=== PATIENT | male | born 1970 | race Caucasian/White ===

== ENCOUNTER 2019-12-14 07:19 | Outpatient (REF) | payer BC, SELFPAY ==
--- NOTE | 2019-12-14 07:30 | MR_ITS ---
EXAMINATION: MRI LEFT SHOULDER WITHOUT CONTRAST CLINICAL INFORMATION: Internal derangement. COMPARISON: None. TECHNIQUE: MR images of the shoulder were obtained on a 1.5 Christine high-field strength scanner without intravenous contrast material. FINDINGS: ROTATOR CUFF: There is a small insertional, interstitial tear of the supraspinatus tendon measuring 5 x 6 mm (longitudinal by AP) without appreciable involvement of the articular or bursal surface. There is mild subscapularis tendinosis with undersurface fraying. No muscle atrophy or fatty infiltration. BICEPS: Normal. CORACOACROMIAL ARCH: The undersurface of the acromion is flat with no subacromial spur. The acromioclavicular joint is normal. LABRUM/CAPSULE: There is a linear band of intermediate to increased signal undercutting the posteroinferior labrum between the posteroinferior 7 o'clock position and 8 o'clock position. This is concerning for a small tear. Of note, the glenoid appears mildly dysplastic inferiorly. The joint capsule is thickened and edematous at the axillary pouch GLENOHUMERAL JOINT/MARROW: No fracture or malalignment. Articular cartilage appears well preserved. As noted above, there is blunting of the posterior margin of the glenoid inferiorly which suggests mild dysplasia. No significant joint effusion. IMPRESSION: Glenohumeral joint capsular thickening and edema at the axillary pouch as can be seen with adhesive capsulitis given the appropriate clinical findings. Small 5 x 6 mm insertional, interstitial tear of the supraspinatus tendon. Mild subscapularis tendinosis with undersurface fraying. Minimal glenoid dysplasia with a probable small focal tear of the posterior inferior labrum.
== END 2019-12-14 07:20 | disposition home or self-care (01) ==
LOC: HO.MRI 07:19
PROVIDERS: Visit Provider Orthopaedic Surgery
DX: M24.812 Other specific joint derangements of left shoulder, not elsewhere classified (principal)
CPT/HCPCS: 73221

== ENCOUNTER → 2019-12-26 12:52 | Outpatient (BNVA) | payer BC, SELFPAY | PROVIDERS: PCP Internal Medicine; Referring Provider Internal Medicine; Visit Provider Orthopaedic Surgery | DX: Z76.89 Persons encountering health services in other specified circumstances (principal) ==

== ENCOUNTER 2020-01-11 07:48 | Day surgery (SDC) | payer BC, SELFPAY ==
[2020-01-06 18:13] VITALS: BMI 23.7
--- NOTE | 2020-01-10 10:04 | HO.ANESPROP2 ---
Documented by User: Echo Gillespie 01/10/20 10:13 HPI - Anesthesia Eval Consult details Narrative: 49yo M for Shoulder Arthroscopy [facility] Past Medical History Medical History Adhesive capsulitis of left shoulder Cervical spinal stenosis Cyst of left kidney Erectile dysfunction Hypercholesterolemia Migraine Schatzki's ring Family History Family History Father Heart disease Renal cell cancer Prostate cancer Mother Hypertension Maternal Aunt Breast cancer Maternal Uncle Prostate cancer Social History Social History Alcohol intake: never Smoking Status: Never smoker Use of substances other than those prescribed or required for medical reasons: No Advance Directives: No Advance Directives Information Provided: No Advance Directives on File: No 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 Allergies Allergy/AdvReac Type Severity Reaction Status Date / Time ezetimibe [From Zetia] AdvReac Mild abd pain Verified 01/09/20 11:26 Home Medications Medication Instructions Recorded Confirmed Type rizatriptan 1 tab PO BID PRN MDD 20mg 01/06/20 01/09/20 History topiramate 50 mg PO BID 01/06/20 01/09/20 History sildenafil 100 mg tablet 100 mg PO DAILY PRN 01/09/20 01/09/20 History sumatriptan succinate 100 mg tablet 100 mg PO Q2-4H PRN 01/09/20 01/09/20 History Exam Exam Date and Time: January 10, 2020 1004 Height,Weight and Vital Signs: Height 6 ft 1 in Weight 81.647 kg Assessment and Plan Assessment Anesthesia Assessment: Chart Reviewed Documented by User: Anitha Jimenez 01/11/20 10:06 [facility] Past Medical History Medical History Adhesive capsulitis of left shoulder Cervical spinal stenosis Cyst of left kidney Erectile dysfunction Hypercholesterolemia Migraine Schatzki's ring Family History Family History Father Heart disease Renal cell cancer Prostate cancer Mother Hypertension Maternal Aunt Breast cancer Maternal Uncle Prostate cancer Social History Social History Alcohol intake: never Smoking Status: Never smoker Use of substances other than those prescribed or required for medical reasons: No Advance Directives: No Advance Directives Information Provided: No Advance Directives on File: No 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 Allergies Allergy/AdvReac Type Severity Reaction Status Date / Time ezetimibe [From Zetia] AdvReac Mild abd pain Verified 01/09/20 11:26 Home Medications Medication Instructions Recorded Confirmed Type rizatriptan 1 tab PO BID PRN MDD 20mg 01/06/20 01/09/20 History topiramate 50 mg PO BID 01/06/20 01/09/20 History sildenafil 100 mg tablet 100 mg PO DAILY PRN 01/09/20 01/09/20 History sumatriptan succinate 100 mg tablet 100 mg PO Q2-4H PRN 01/09/20 01/09/20 History Exam Airway Mallampati Class: II TM Dist: >3cm Neck ROM: Full Assessment and Plan Assessment Anesthesia Assessment: Anesthesia Plan Discussed and Chart Reviewed Final Anesthetic Review NPO: Yes ASA Class: II Final Preanesthetic Review: No Changes in Pt Med Stat, Meds/Allgs Chart Reviewed, Consent Obtained/Reviewed and Anes Risks/Benef Reviewed Patient Risk: Low Procedure Risk: Low Assessment/Block/Sedation in SS: Assess/Block/Sedation-SS Anesthetic Plan Anesthetic Plan: GA and Regional Block Disposition: Standard PACU
[2020-01-11] VITALS (8 sets, daily range): BP systolic 108–137; BP diastolic 71–81; PULSE 66–77; RESP 16–18; TEMP 36–36.5; O2SAT 97–99
[2020-01-11] MEDS: Lactated Ringers 1,000 ML 100 ML IVCONT (08:02)
--- NOTE | 2020-01-11 09:33 | PC.NURSE ---
0976 time out performed, nerve block completed
--- NOTE | 2020-01-11 10:48 | PM.OP ---
Brief Operative Note Date of procedure: 01/11/20 Pre-op diagnosis: left shoulder adhesive capsulitis Post-op diagnosis: same Procedure: left shoulder debridement, lysis of adhesions Implants: none Surgeon: Adolfo Barrientos MD Anesthesia: GETA and regional Estimated blood loss (mL): 0 Tourniquet time (min): 0 IV fluids (mL): 600 Pathology: none sent Condition: stable Disposition: PACU
[2020-01-11] MEDS: Acetaminophen 325 MG TABLET 650 MG PO (11:12)
[2020-01-11] MEDS: oxyCODONE HCl Immed Release 5 MG TABLET PO (11:13)
--- NOTE | 2020-01-11 12:51 | HO.POSTANES ---
Post Anesthesia Evaluation Post Anesthesia Evaluation Vital Signs: Vital Signs Temp Pulse Resp BP Pulse Ox 01/11/20 12:00 97.4 F 72 17 108/73 98 01/11/20 11:44 66 16 114/77 98 01/11/20 11:29 97.4 F 68 17 120/78 99 01/11/20 11:14 71 18 120/80 99 01/11/20 11:09 77 18 120/71 99 01/11/20 11:04 73 17 118/75 98 01/11/20 10:59 97.7 F 76 16 125/80 97 01/11/20 07:58 96.8 F 75 16 137/81 99 Anesthesia: Nerve Block and General LMA Mental Status: Awake Pain Control: Satisfactory Nausea/Vomiting: None Hydration: Adequate Anesthesia-Related Issues: No Anes. Related Issues
--- NOTE | 2020-01-11 16:25 | OP_ITS ---
SURGEON: Adolfo Barrientos MD INDICATIONS: This is a 49-year-old gentleman with a greater than 1 year history of adhesive capsulitis and restricted external rotation. He has consented to undergo operative intervention. PREOPERATIVE DIAGNOSIS: Left shoulder adhesive capsulitis. POSTOPERATIVE DIAGNOSIS: Left shoulder adhesive capsulitis. PROCEDURE PERFORMED: Lysis of adhesions, left shoulder arthroscopy. ESTIMATED BLOOD LOSS: None. COMPLICATIONS: None. ANESTHESIA: Regional and general. ASSISTANTS: SPECIMENS: FLUIDS: 600 mL. PROCEDURE IN DETAIL: The patient was brought to the operating room, placed in the beach chair position. All bony prominences were well padded. He was prepped and draped in standard sterile fashion. Time-out was called to identify proper site, proper procedure, proper surgeon. IV antibiotics per weight was administered. I began by making a stab incision posterolaterally and placed my blunt trocar atraumatically into the glenohumeral joint. Immediately evident was a tight shoulder that I could externally rotate approximately 10 degrees in neutral. He had synovitis throughout the anterior interval into the biceps tendon over the anterior labrum and the subscapularis extending down into the inferior glenohumeral ligament and posteriorly along the superior capsule and posterior labrum. I established outside-in anterosuperior portal and using cautery, I debrided the anterior interval circumferentially starting just adjacent to the labrum and releasing the subscap both posteriorly, anteriorly, superiorly. Care was taken to avoid axillary nerve. I, superiorly underneath the biceps tendon, debrided tissue with both a shaver and cautery until I was able to externally rotate approximately 45 degrees. I did include some synovectomy of the anterior interval as well as the superior capsule extending down in the superior labrum, biceps tendon, as well as posteriorly along the posterior labrum. Once this was done, I examined the undersurface of the rotator cuff tear, it was pristine at the cartilaginous surfaces. I did place my camera into the subacromial space, this appeared normal. No lateral portal was made. Prior to termination of the case, I was able to externally rotate him comfortably to 45 degrees. I then removed all instrumentation, closed the portals with nylon. The patient was placed in sterile dressing and a sling, was brought to recovery room in stable condition. There were no known complications. Adolfo Barrientos MD NE/MODL / [id number]
== END 2020-01-11 12:55 | disposition home or self-care (01) ==
PROVIDERS: Visit Provider Orthopaedic Surgery
PROC: (CPT 29805; principal; 2020-01-11 09:30)
DX: M75.02 Adhesive capsulitis of left shoulder (principal); M24.812 Other specific joint derangements of left shoulder, not elsewhere classified; Z88.8 Allergy status to other drugs, medicaments and biological substances; Z79.899 Other long term (current) drug therapy
CPT/HCPCS: 29825; J0171; J0690; J1100; J1885; J2250; J2405; J3010

== ENCOUNTER 2020-01-13 16:18 | Outpatient (REF) | payer BC, SELFPAY | END 2020-01-13 16:19 | disposition home or self-care (01) | LOC: HO.LAB 16:18 | PROVIDERS: Visit Provider Internal Medicine | DX: Z20.828 Contact with and (suspected) exposure to other viral communicable diseases (principal) | CPT/HCPCS: C9803; U0003 ==

== ENCOUNTER → 2020-01-26 14:04 | Outpatient (BNVA) | payer BC, SELFPAY | PROVIDERS: PCP Internal Medicine; Visit Provider Physician Assistant | DX: Z76.89 Persons encountering health services in other specified circumstances (principal) ==

== ENCOUNTER → 2020-02-16 08:20 | Outpatient (BNVA) | payer BC, SELFPAY | PROVIDERS: PCP Internal Medicine; Referring Provider Internal Medicine; Visit Provider Orthopaedic Surgery | DX: Z76.89 Persons encountering health services in other specified circumstances (principal) ==

== ENCOUNTER 2020-02-17 13:00 | Outpatient (RCR) | payer BC, SELFPAY ==
--- NOTE | 2020-01-17 14:59 | MHC.PT.EP ---
[facility] [place] Office [place] Office [place] Office [address] [phone] F: [phone] F: [phone] F: [phone] F: [phone] Physical Therapy Plan of Care Date of Evaluation: 01/17/20 Date of Surgery: 01/11/20 - Diagnosis: Adhesive Capsulitis of L shoulder Assessment: Patient is a 49 year old R handed male who presents with s/s consistent with L lysis, arthroscopy for adhesive capsulitis. 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 Patient past medical history is fairly unremarkable. Current impairments include pain, posture, ROM, strength, safety, independence, activity tolerance and functional mobility. Functional limitations include decreased ability to walk, stand, transfer, negotiate stairs, and perform weight bearing activities.. Patient is motivated with good rehab potential. Skilled PT will address impairments and functional limitations in order to achieve goals. 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 Manual therapy to restore motion and function. Therapeutic exercise to improve strength and flexibility. Neuromuscular re-education for posture and balance. Therapeutic activities to return to functional activities of daily living. Please sign and return to therapist. Thank you for your referral.
--- NOTE | 2020-03-22 09:34 | MHC.PT.DC ---
[facility] [place] Office [place] Office [place] Office [address] [phone] F: [phone] F: [phone] F: [phone] F: [phone] Physical Therapy Discharge Report Diagnosis: Adhesive Capsulitis of L shoulder Date of Surgery: 01/11/20 - Date of Evaluation: 01/17/20 Date of Discharge: Treatments to Date: 8 Cancellations to Date: No Shows to Date: Discharge Status: Independent with HEP Discharge Summary: Returning to work. Educated thoroughly on HEP and to call back if new symptoms or need to return. Electronically signed by: Walter Pond PT Please sign and return to therapist. Thank you for your referral.
== END 2020-03-22 09:35 | disposition home or self-care (01) ==
LOC: HO.PTCHIC 13:00
PROVIDERS: PCP Internal Medicine; Visit Provider Orthopaedic Surgery
DX: M75.02 Adhesive capsulitis of left shoulder (principal)
CPT/HCPCS: 97014; 97110; 97140; 97161

== ENCOUNTER → 2020-05-22 12:58 | Outpatient (BNVA) | payer BC, SELFPAY | PROVIDERS: PCP Internal Medicine; Visit Provider Urology ==

== ENCOUNTER 2020-06-26 09:30 | Outpatient (REF) | payer BC, SELFPAY ==
[2020-06-26 10:12] LABS: MANUAL DIFF FLAG NO
[2020-06-26 10:21] LABS: Basophils Percent Auto 0.7 % (0-2); Eosinophils Absolute Auto 0.4 X10*3/uL (0.0-0.4); Eosinophils Percent Auto 6.4 % (0-4); Hematocrit 47.2 % (42-52); Imm Gran Abs Auto 0.01 X10*3/uL (0.00-0.03); Imm Gran Pct Auto 0.2 % (0.0-0.4); Lymphocytes Absolute Auto 1.9 X10*3/uL (1.2-4.9); Lymphocytes Percent Auto 35.2 % (20-40); Mean Corpuscular HGB Conc 33.9 g/dl (31.0-36.0); Mean Corpuscular Hemoglobin 30.8 pg (27.0-33.0); Mean Corpuscular Volume 90.9 fL (80-98); Mean Platelet Volume 10.3 fL (9.4-12.4); Monocytes Absolute Auto 0.6 X10*3/uL (0.1-1.2); Monocytes Percent Auto 10.1 % (2-11); Neutrophils Absolute Auto 2.6 X10*3/uL (2.0-8.3); Neutrophils Percent Auto 47.4 % (45-73); Platelet Count 217 X10*3/uL (160-400); Red Blood Count 5.19 X10*6/uL (4.60-5.80); Red Cell Distribution Width 12.3 % (11.0-16.0); White Blood Count 5.5 X10*3/uL (4.8-10.8)
[2020-06-26 10:36] LABS: Alanine Aminotransferase 49 U/L (0-40); Albumin Level 4.2 g/dL (3.5-5.0); Alkaline Phosphatase 67 U/L (39-117); Anion Gap 12 (12-20); Aspartate Amino Transferase 30 U/L (5-37); Bilirubin Total 0.9 mg/dL (0.0-1.0); Blood Urea Nitrogen 24 mg/dL (9-16); Calcium 9.1 mg/dL (8.4-10.2); Carbon Dioxide 25 mmol/L (22-29); Chloride 109 mmol/L (96-108); Cholesterol 215 mg/dL; Estimated Glomerular Filt Rate > 60; Glucose Random 89 mg/dL (60-115); HDL Cholesterol 51 mg/dL; LDL Cholesterol Calculated 147 mg/dl; Potassium 4.7 mmol/L (3.3-5.1); Sodium 141 mmol/L (135-145); Total Protein 6.7 g/dL (6.5-8.0); Triglycerides 88 mg/dL
[2020-06-26 10:59] LABS: Prostate Specific Antigen Scr 2.09 ng/mL (<0.05-4.0); Thyroid Stimulating Hormone 1.21 uIU/mL (0.32-4.0)
[2020-06-26 11:13] LABS: Folate 16.9 ng/mL (> or = 4.0); Vitamin B12 297 pg/mL (200-900)
== END 2020-06-26 09:31 | disposition home or self-care (01) ==
LOC: HO.10HDL 09:30
PROVIDERS: Visit Provider Internal Medicine
DX: N40.1 Benign prostatic hyperplasia with lower urinary tract symptoms (principal); R39.14 Feeling of incomplete bladder emptying; E78.00 Pure hypercholesterolemia, unspecified
CPT/HCPCS: 36415; 80053; 80061; 82607; 82746; 84153; 84443; 85025

== ENCOUNTER 2020-09-13 08:05 | Outpatient (REF) | payer BC, SELFPAY ==
[2020-09-13 10:39] LABS: Alanine Aminotransferase 25 U/L (0-40); Alkaline Phosphatase 64 U/L (39-117); Anion Gap 12 (12-20); Aspartate Amino Transferase 21 U/L (5-37); Bilirubin Total 0.7 mg/dL (0.0-1.0); Blood Urea Nitrogen 17 mg/dL (9-16); Calcium 9.6 mg/dL (8.4-10.2); Carbon Dioxide 25 mmol/L (22-29); Chloride 111 mmol/L (96-108); Cholesterol 184 mg/dL; Estimated Glomerular Filt Rate > 60; Glucose Random 90 mg/dL (60-115); HDL Cholesterol 53 mg/dL; LDL Cholesterol Calculated 119 mg/dl; Potassium 4.7 mmol/L (3.3-5.1); Sodium 143 mmol/L (135-145); Total Protein 6.5 g/dL (6.5-8.0); Triglycerides 64 mg/dL
[2020-09-13 11:15] LABS: Folate 18.1 ng/mL (> or = 4.0); Vitamin B12 527 pg/mL (200-900)
== END 2020-09-13 08:06 | disposition home or self-care (01) ==
LOC: HO.10HDL 08:05
PROVIDERS: Visit Provider Internal Medicine
DX: E78.00 Pure hypercholesterolemia, unspecified (principal)
CPT/HCPCS: 36415; 80053; 80061; 82607; 82746

== ENCOUNTER 2021-05-16 09:15 | Outpatient (REF) | payer BC, SELFPAY ==
[2021-05-16 11:40] LABS: Prostate Specific Antigen 2.24 ng/mL (<0.05-4.0)
== END 2021-05-16 09:16 | disposition home or self-care (01) ==
LOC: HO.10HDL 09:15
PROVIDERS: Visit Provider Urology
DX: Z12.5 Encounter for screening for malignant neoplasm of prostate (principal); N13.8 Other obstructive and reflux uropathy; N40.1 Benign prostatic hyperplasia with lower urinary tract symptoms; R39.14 Feeling of incomplete bladder emptying
CPT/HCPCS: 36415; 84153

== ENCOUNTER → 2021-05-22 13:13 | Outpatient (BNVA) | payer BC, SELFPAY | PROVIDERS: PCP Internal Medicine; Visit Provider Urology | DX: Z13.89 Encounter for screening for other disorder (principal) ==

== ENCOUNTER → 2021-06-11 08:18 | Outpatient (BNVA) | payer BC, SELFPAY | PROVIDERS: PCP Internal Medicine; Visit Provider Urology | DX: Z13.89 Encounter for screening for other disorder (principal) ==

== ENCOUNTER 2022-05-05 15:56 | Emergency (ER) | payer BC, SELFPAY ==
--- NOTE | ~2022-05-05 | XR_ITS ---
EXAMINATION: XR CHEST CLINICAL INFORMATION: Chest pain COMPARISON: 01/25/2009 TECHNIQUE: 2 views of the chest were obtained. FINDINGS: No significant abnormality is noted involving the heart, lungs, mediastinum, bony thorax or soft tissues. XR/XR chest 2V IMPRESSION: Unremarkable examination.
[2022-05-05 16:22] VITALS: BP 159/87; PULSE 71; RESP 18; TEMP 36.8; O2SAT 99; BMI 23.7
--- NOTE | 2022-05-05 16:24 | ED.GENADULT ---
HPI - General Adult General Chief complaint: General Medical <SIMA Nielson - Last Filed: 05/05/22 16:27> Stated complaint: sent from dr office neck ,jaw pain <SIMA Nielson - Last Filed: 05/05/22 16:27> Time Seen by Provider: 05/05/22 21:37 <SIMA Nielson - Last Filed: 05/05/22 16:27> Source: patient <Benjamin Sevilla MD - Last Filed: 05/05/22 23:27> Mode of arrival: ambulatory <Benjamin Sevilla MD - Last Filed: 05/05/22 23:27> Limitations: no limitations <Benjamin Sevilla MD - Last Filed: 05/05/22 23:27> History of Present Illness HPI narrative: Patient With no known coronary disease history of hypercholesteremia been having throat pain jaw pain right arm pain off and on for last few weeks on exertion has happened 6-7 episodes last episode was 3 days ago patient does have neck pain also but lately is not acting up. Patient went to urgent care with Dr. Asked him to go to hospital further evaluation. Patient denies any shortness of breath strong family history father at age of 40s with coronary disease patient does not smoke or drink weight only 81 kg in the ER prior to my evaluation patient had 2 sets of troponin which were negative delta change EKG without any acute ischemic changes <Benjamin Sevilla MD - Last Filed: 05/05/22 23:27> Related Data Home medications: Home Medications Medication Instructions Recorded Confirmed rizatriptan 10 mg tablet 1 tab PO BID PRN Migraine Headache 01/06/20 09/23/21 topiramate 50 mg tablet 50 mg PO BID 01/06/20 09/23/21 Previous Rx's Medication Instructions Recorded pravastatin 20 mg tablet 20 mg PO BEDTIME #90 tabs 03/16/22 aspirin 81 mg tablet,delayed 81 mg PO DAILY #30 tabs 05/05/22 release cyclobenzaprine 10 mg tablet 10 mg PO BEDTIME PRN muscle spasm 05/05/22 #14 tabs lidocaine 4 % topical patch 1 patch topical DAILY PRN pain #15 05/05/22 (AsperFlex (lidocaine)) ea <SIMA Nielson - Last Filed: 05/05/22 16:27> Allergies/adverse reactions: Allergies Allergy/AdvReac Type Severity Reaction Status Date / Time ezetimibe [From Zetia] AdvReac Mild abd pain Verified 05/05/22 11:02 <SIMA Nielson - Last Filed: 05/05/22 16:27> Review of Systems Review of Systems: Yes all other systems are reviewed and are negative <Benjamin Sevilla MD - Last Filed: 05/05/22 23:27> [facility] Past Medical History Medical History: Medical History Adhesive capsulitis of left shoulder Cervical spinal stenosis Cyst of left kidney Hypercholesterolemia Migraine Schatzki's ring <SIMA Nielson - Last Filed: 05/05/22 16:27> Surgical History: Surgical History S/P shoulder surgery <SIMA Nielson - Last Filed: 05/05/22 16:27> Family History Family History: Family History Father Heart disease Renal cell cancer Prostate cancer Mother Hypertension Maternal Aunt Breast cancer Maternal Uncle Prostate cancer Heart disease Maternal Uncle Heart disease Brother Alcohol abuse <SIMA iNelson - Last Filed: 05/05/22 16:27> Social History Social History: Social History Housing: House Alcohol intake: current Alcohol intake frequency: holidays/special occasions only Alcohol type: hard liquor Patient Tobacco Use Status: Never used Tobacco Smoked in Last 30 Days: No e-Cigarette/Vaping Use: Never Used Second Hand Smoke Exposure: No Use of substances other than those prescribed or required for medical reasons: No Advance Directives: No Advance Directives Information Provided: Yes service: No Current occupational status: employed 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 Cognitive needs: No Hearing needs: No Vision needs: No <SIMA Nielson - Last Filed: 05/05/22 16:27> Physical Exam ED Vital Signs: Vital Signs - 24 hr 05/05/22 16:22 05/05/22 21:04 05/05/22 22:28 Temperature 98.2 F Pulse Rate 71 72 Respiratory Rate 18 16 Blood Pressure 159/87 H 149/94 H 150/94 H Pulse Oximetry 99 Oxygen Delivery Method Room Air Room Air BMI result Body Mass Index 23.7 <SIMA Nielson - Last Filed: 05/05/22 16:27> Vital Signs - 24 hr 05/05/22 16:22 05/05/22 21:04 05/05/22 22:28 Temperature 98.2 F Pulse Rate 71 72 Respiratory Rate 18 16 Blood Pressure 159/87 H 149/94 H 150/94 H Pulse Oximetry 99 Oxygen Delivery Method Room Air Room Air BMI result Body Mass Index 23.7 <Benjamin Sevilla MD - Last Filed: 05/05/22 23:27> Appearance: Alert. Oriented X3. No acute distress. Eyes: PERRLA, No Nystagmus ENT: Pharynx normal. Oral Mucosa moist Neck: Normal inspection. Neck supple. CVS: Normal heart rate and rhythm. Pulses normal. Respiratory: No respiratory distress. Equal air entry bilateral, no wheezing/rales/rhonchi Abdomen: Soft and nontender. Bowel sounds are present, no mass palpable, no CVA tenderness Skin: Skin warm and dry. Normal skin color. Normal skin turgor. Extremities: No lower extremity edema. No calf tenderness Neuro: Oriented X 3. No motor deficit. No sensory deficit.No cerebellar signs , cranial nerves II-XII intact <Benjamin Sevilla MD - Last Filed: 05/05/22 23:27> Course Course Course Narrative: RME - 51 yo male with history of HLD presents to the ER for evaluation of abnormal EKG at Urgent Care. 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 No chest pain or SOB. No nausea or diaphoresis with the episodes. EKG at Urgent Care showed Q waves in anterior leads, denies ever having an EKG done before. Plan: EKG, trop, CXR, labs. <SIMA Nielson - Last Filed: 05/05/22 16:27> Medications Administered Discontinued Medications Generic Name Dose Route Start Last Admin Trade Name Freq PRN Reason Stop Dose Admin Aspirin 162 mg 05/05/22 22:02 05/05/22 22:23 Aspirin Enteric Coated 81 Mg Tablet. PO 05/05/22 22:03 162 mg ONCE ONE Administration <SIMA Nielson - Last Filed: 05/05/22 16:27> Medications Administered Discontinued Medications Generic Name Dose Route Start Last Admin Trade Name Mckenzie PRN Reason Stop Dose Admin Aspirin 162 mg 05/05/22 22:02 05/05/22 22:23 Aspirin Enteric Coated 81 Mg Tablet. PO 05/05/22 22:03 162 mg ONCE ONE Administration <Benjamin Sevilla MD - Last Filed: 05/05/22 23:27> Medical Decision Making Medical Decision Making [facility] Narrative: Patient clinically anginal equivalent chest pain but EKG without any ischemic changes 2 sets of troponin negative patient had chest pain 3 days ago last time. Patient advised to follow with yardage control operator next 48 hours for stress test and further evaluation advised take baby aspirin and not to do any exertion meanwhile <Benjamin Sevilla MD - Last Filed: 05/05/22 23:27> Lab Data [facility] Lab Attestation statement: I reviewed the patient's lab results. <Benjamin Sevilla MD - Last Filed: 05/05/22 23:27> Result Diagrams: 05/05/22 17:27 05/05/22 17:27 <SIMA Nielson - Last Filed: 05/05/22 16:27> Labs: Lab Results 05/05/22 05/05/22 05/05/22 Range/Units 17:27 17:27 17:27 WBC 6.9 (4.8-10.8) X10*3/uL RBC 5.12 (4.60-5.80) X10*6/uL Hgb 16.0 (14.0-18.0) g/dl Hct 45.6 (42.0-52.0) % MCV 89.1 (80.0-98.0) fL MCH 31.3 (27.0-33.0) pg MCHC 35.1 (31.0-36.0) g/dl RDW 12.4 (11.0-16.0) % Plt Count 228 (160-400) X10*3/uL MPV 9.9 (9.4-12.4) fL Immature Gran % (Auto) 0.1 (0.0-0.4) % Neut % (Auto) 60.2 (45-73) % Lymph % (Auto) 28.1 (20-40) % [place] % (Auto) 9.5 (2-11) % Eos % (Auto) 1.7 (0-4) % Baso % (Auto) 0.4 (0-2) % Lymph # (Auto) 2.0 (1.2-4.9) X10*3/uL [place] # (Auto) 0.7 (0.1-1.2) X10*3/uL Eos # (Auto) 0.1 (0.0-0.4) X10*3/uL Baso # (Auto) 0.0 (0.0-0.2) X10*3/uL Abs Immat Gran (auto) 0.01 (0.00-0.03) X10*3/uL Absolute Neuts (auto) 4.2 (2.0-8.3) x10*3/uL Absolute Nucleated RBC 0.000 (0.0-0.012) X10*3/uL Nucleated RBC % (auto) 0.0 (0.0-0.2) /100WBC Sodium 142 (135-145) mmol/L Potassium 4.3 (3.3-5.1) mmol/L Chloride 113 H (96-108) mmol/L Carbon Dioxide 23 (22-29) mmol/L Anion Gap 10 L (12-20) BUN 18 H (9-16) mg/dL Creatinine 1.00 (0.5-1.4) mg/dL Estim Creat Clear Calc 96.5 Estimated GFR > 60 Random Glucose 94 (60-115) mg/dL Calcium 9.2 (8.4-10.2) mg/dL Magnesium 1.9 (1.6-2.6) mg/dL Total Bilirubin 0.5 (0.0-1.0) mg/dL Direct Bilirubin 0.2 (0.0-0.5) mg/dL AST 20 (5-37) U/L ALT 26 (0-40) U/L Alkaline Phosphatase 60 (39-117) U/L Troponin I High Sens 5.0 (<3.5-35.0) ng/L Total Protein 6.7 (6.5-8.0) g/dL Albumin 4.0 (3.5-5.0) g/dL 05/05/22 Range/Units 19:07 WBC (4.8-10.8) X10*3/uL RBC (4.60-5.80) X10*6/uL Hgb (14.0-18.0) g/dl Hct (42.0-52.0) % MCV (80.0-98.0) fL MCH (27.0-33.0) pg MCHC (31.0-36.0) g/dl RDW (11.0-16.0) % Plt Count (160-400) X10*3/uL MPV (9.4-12.4) fL Immature Gran % (Auto) (0.0-0.4) % Neut % (Auto) (45-73) % Lymph % (Auto) (20-40) % [place] % (Auto) (2-11) % Eos % (Auto) (0-4) % Baso % (Auto) (0-2) % Lymph # (Auto) (1.2-4.9) X10*3/uL [place] # (Auto) (0.1-1.2) X10*3/uL Eos # (Auto) (0.0-0.4) X10*3/uL Baso # (Auto) (0.0-0.2) X10*3/uL Abs Immat Gran (auto) (0.00-0.03) X10*3/uL Absolute Neuts (auto) (2.0-8.3) x10*3/uL Absolute Nucleated RBC (0.0-0.012) X10*3/uL Nucleated RBC % (auto) (0.0-0.2) /100WBC Sodium (135-145) mmol/L Potassium (3.3-5.1) mmol/L Chloride (96-108) mmol/L Carbon Dioxide (22-29) mmol/L Anion Gap (12-20) BUN (9-16) mg/dL Creatinine (0.5-1.4) mg/dL Estim Creat Clear Calc Estimated GFR Random Glucose (60-115) mg/dL Calcium (8.4-10.2) mg/dL Magnesium (1.6-2.6) mg/dL Total Bilirubin (0.0-1.0) mg/dL Direct Bilirubin (0.0-0.5) mg/dL AST (5-37) U/L ALT (0-40) U/L Alkaline Phosphatase (39-117) U/L Troponin I High Sens < 3.5 (<3.5-35.0) ng/L Total Protein (6.5-8.0) g/dL Albumin (3.5-5.0) g/dL <SIMA Nielson - Last Filed: 05/05/22 16:27> Lab Results 05/05/22 05/05/22 05/05/22 Range/Units 17:27 17:27 17:27 WBC 6.9 (4.8-10.8) X10*3/uL RBC 5.12 (4.60-5.80) X10*6/uL Hgb 16.0 (14.0-18.0) g/dl Hct 45.6 (42.0-52.0) % MCV 89.1 (80.0-98.0) fL MCH 31.3 (27.0-33.0) pg MCHC 35.1 (31.0-36.0) g/dl RDW 12.4 (11.0-16.0) % Plt Count 228 (160-400) X10*3/uL MPV 9.9 (9.4-12.4) fL Immature Gran % (Auto) 0.1 (0.0-0.4) % Neut % (Auto) 60.2 (45-73) % Lymph % (Auto) 28.1 (20-40) % [place] % (Auto) 9.5 (2-11) % Eos % (Auto) 1.7 (0-4) % Baso % (Auto) 0.4 (0-2) % Lymph # (Auto) 2.0 (1.2-4.9) X10*3/uL [place] # (Auto) 0.7 (0.1-1.2) X10*3/uL Eos # (Auto) 0.1 (0.0-0.4) X10*3/uL Baso # (Auto) 0.0 (0.0-0.2) X10*3/uL Abs Immat Gran (auto) 0.01 (0.00-0.03) X10*3/uL Absolute Neuts (auto) 4.2 (2.0-8.3) x10*3/uL Absolute Nucleated RBC 0.000 (0.0-0.012) X10*3/uL Nucleated RBC % (auto) 0.0 (0.0-0.2) /100WBC Sodium 142 (135-145) mmol/L Potassium 4.3 (3.3-5.1) mmol/L Chloride 113 H (96-108) mmol/L Carbon Dioxide 23 (22-29) mmol/L Anion Gap 10 L (12-20) BUN 18 H (9-16) mg/dL Creatinine 1.00 (0.5-1.4) mg/dL Estim Creat Clear Calc 96.5 Estimated GFR > 60 Random Glucose 94 (60-115) mg/dL Calcium 9.2 (8.4-10.2) mg/dL Magnesium 1.9 (1.6-2.6) mg/dL Total Bilirubin 0.5 (0.0-1.0) mg/dL Direct Bilirubin 0.2 (0.0-0.5) mg/dL AST 20 (5-37) U/L ALT 26 (0-40) U/L Alkaline Phosphatase 60 (39-117) U/L Troponin I High Sens 5.0 (<3.5-35.0) ng/L Total Protein 6.7 (6.5-8.0) g/dL Albumin 4.0 (3.5-5.0) g/dL 05/05/22 Range/Units 19:07 WBC (4.8-10.8) X10*3/uL RBC (4.60-5.80) X10*6/uL Hgb (14.0-18.0) g/dl Hct (42.0-52.0) % MCV (80.0-98.0) fL MCH (27.0-33.0) pg MCHC (31.0-36.0) g/dl RDW (11.0-16.0) % Plt Count (160-400) X10*3/uL MPV (9.4-12.4) fL Immature Gran % (Auto) (0.0-0.4) % Neut % (Auto) (45-73) % Lymph % (Auto) (20-40) % [place] % (Auto) (2-11) % Eos % (Auto) (0-4) % Baso % (Auto) (0-2) % Lymph # (Auto) (1.2-4.9) X10*3/uL [place] # (Auto) (0.1-1.2) X10*3/uL Eos # (Auto) (0.0-0.4) X10*3/uL Baso # (Auto) (0.0-0.2) X10*3/uL Abs Immat Gran (auto) (0.00-0.03) X10*3/uL Absolute Neuts (auto) (2.0-8.3) x10*3/uL Absolute Nucleated RBC (0.0-0.012) X10*3/uL Nucleated RBC % (auto) (0.0-0.2) /100WBC Sodium (135-145) mmol/L Potassium (3.3-5.1) mmol/L Chloride (96-108) mmol/L Carbon Dioxide (22-29) mmol/L Anion Gap (12-20) BUN (9-16) mg/dL Creatinine (0.5-1.4) mg/dL Estim Creat Clear Calc Estimated GFR Random Glucose (60-115) mg/dL Calcium (8.4-10.2) mg/dL Magnesium (1.6-2.6) mg/dL Total Bilirubin (0.0-1.0) mg/dL Direct Bilirubin (0.0-0.5) mg/dL AST (5-37) U/L ALT (0-40) U/L Alkaline Phosphatase (39-117) U/L Troponin I High Sens < 3.5 (<3.5-35.0) ng/L Total Protein (6.5-8.0) g/dL Albumin (3.5-5.0) g/dL <Benjamin Sevilla MD - Last Filed: 05/05/22 23:27> Independent Interpretation I performed an independent interpretation of an: EKG <Benjamin Sevilla MD - Last Filed: 05/05/22 23:27> Interpretation: Normal sinus rhythm heart rate 65 beats per minute normal interval normal axis no acute ST-T no acute ischemia <Benjamin Sevilla MD - Last Filed: 05/05/22 23:27> Discharge Plan Discharge Clinical Impression: Chest pain <SIMA Nielson - Last Filed: 05/05/22 16:27> Patient Disposition: Home, Self-Care <SIMA Nielson - Last Filed: 05/05/22 16:27> Instructions: Chest Pain (ED) <SIMA Nielson - Last Filed: 05/05/22 16:27> Additional Instructions: Take aspirin 81 mg daily Avoid any exertion till seen by yardage control operator Call yardage control operator and have an appointment within next 2-3 days <SIMA Nielson - Last Filed: 05/05/22 16:27> Prescriptions: New aspirin 81 mg tablet,delayed release (DR/EC) 81 mg PO DAILY Qty: 30 0RF No Action pravastatin 20 mg tablet 20 mg PO BEDTIME Qty: 90 1RF rizatriptan 10 mg tablet 1 tab PO BID MDD 20mg PRN (Reason: Migraine Headache) topiramate 50 mg tablet 50 mg PO BID Rx Instructions: take 100mg (2tablets) in pm cyclobenzaprine 10 mg tablet 10 mg PO BEDTIME PRN (Reason: muscle spasm) Qty: 14 0RF lidocaine [AsperFlex (lidocaine)] 4 % adhesive patch,medicated 1 patch topical DAILY PRN (Reason: pain) Qty: 15 0RF <SIMA Nielson - Last Filed: 05/05/22 16:27> Referrals: Moo Vo MD [Physician] - 2 days <SIMA Nielson - Last Filed: 05/05/22 16:27> Stand Alone Forms: Work/School Release <SIMA Nielson - Last Filed: 05/05/22 16:27> Interventions: ED Discharge Assessment Last Done: 05/05/22 22:31 <SIMA Nielson - Last Filed: 05/05/22 16:27> Discharge Date/Time: 05/05/22 22:35 <SIMA Nielson - Last Filed: 02/27/23 16:27>
--- NOTE | 2022-05-05 16:27 | ECG_ITS ---
Test Reason : CHEST PAIN Blood Pressure : / mmHG Vent. Rate : 065 BPM Atrial Rate : 065 BPM P-R Int : 112 ms QRS Dur : 100 ms QT Int : 402 ms P-R-T Axes : 043 -17 -28 degrees QTc Int : 418 ms Poor data quality Normal sinus rhythm Normal ECG No previous ECGs available Please repeat EKG with better baseline Referred By: Kalyani Hernandez Electronically Signed By:MENA WILL MD
[2022-05-05 17:31] LABS: MANUAL DIFF FLAG NO
[2022-05-05 17:34] LABS: Basophils Percent Auto 0.4 % (0-2); Eosinophils Absolute Auto 0.1 X10*3/uL (0.0-0.4); Eosinophils Percent Auto 1.7 % (0-4); Hematocrit 45.6 % (42.0-52.0); Imm Gran Abs Auto 0.01 X10*3/uL (0.00-0.03); Imm Gran Pct Auto 0.1 % (0.0-0.4); Lymphocytes Percent Auto 28.1 % (20-40); Mean Corpuscular HGB Conc 35.1 g/dl (31.0-36.0); Mean Corpuscular Hemoglobin 31.3 pg (27.0-33.0); Mean Corpuscular Volume 89.1 fL (80.0-98.0); Mean Platelet Volume 9.9 fL (9.4-12.4); Monocytes Absolute Auto 0.7 X10*3/uL (0.1-1.2); Monocytes Percent Auto 9.5 % (2-11); Neutrophils Absolute Auto 4.2 x10*3/uL (2.0-8.3); Neutrophils Percent Auto 60.2 % (45-73); Platelet Count 228 X10*3/uL (160-400); Red Blood Count 5.12 X10*6/uL (4.60-5.80); Red Cell Distribution Width 12.4 % (11.0-16.0); White Blood Count 6.9 X10*3/uL (4.8-10.8)
[2022-05-05 17:50] LABS: Alanine Aminotransferase 26 U/L (0-40); Alkaline Phosphatase 60 U/L (39-117); Anion Gap 10 (12-20); Aspartate Amino Transferase 20 U/L (5-37); Bilirubin Direct 0.2 mg/dL (0.0-0.5); Bilirubin Total 0.5 mg/dL (0.0-1.0); Blood Urea Nitrogen 18 mg/dL (9-16); Calcium 9.2 mg/dL (8.4-10.2); Carbon Dioxide 23 mmol/L (22-29); Chloride 113 mmol/L (96-108); Creatinine Clr Calc Pharmacy 96.5; Estimated Glomerular Filt Rate > 60; Glucose Random 94 mg/dL (60-115); Magnesium 1.9 mg/dL (1.6-2.6); Potassium 4.3 mmol/L (3.3-5.1); Sodium 142 mmol/L (135-145); Total Protein 6.7 g/dL (6.5-8.0)
[2022-05-05 19:34] LABS: Troponin-I High Sensitivity < 3.5 ng/L (<3.5-35.0)
[2022-05-05 21:04] VITALS: BP 149/94; PULSE 72; RESP 16
--- NOTE | 2022-05-05 21:45 | PC.NURSE ---
Pt A&Ox4, denies any pain, denies CP, palpitations of SOB. Reports neck pain discomfort that radiates to R arm intermittent x 1 month.
[2022-05-05] MEDS: Aspirin Enteric Coated 81 MG TABLET.DR 162 MG PO (22:23)
[2022-05-05 22:28] VITALS: BP 150/94
== END 2022-05-05 22:35 | disposition home or self-care (01) ==
PROVIDERS: Physician Assistant; Emergency Provider Internal Medicine; PCP Internal Medicine
DX: R07.9 Chest pain, unspecified (principal); E78.00 Pure hypercholesterolemia, unspecified; Z79.02 Long term (current) use of antithrombotics/antiplatelets; Z79.82 Long term (current) use of aspirin
CPT/HCPCS: 36415; 71046; 80048; 80076; 83735; 84484; 85025; 93005; 99283; 99284

== ENCOUNTER 2022-05-07 14:54 | Outpatient (REF) | payer BC, SELFPAY ==
[2022-05-07 17:45] LABS: Prothrombin Time 10.9 SEC (10.0-13.1)
== END 2022-05-07 14:55 | disposition home or self-care (01) ==
LOC: HO.LAB 14:54
PROVIDERS: PCP Internal Medicine; Referring Provider Internal Medicine; Visit Provider Internal Medicine Cardiovascular Disease
DX: I20.0 Unstable angina (principal); E78.5 Hyperlipidemia, unspecified; Z79.899 Other long term (current) drug therapy; Z82.49 Family history of ischemic heart disease and other diseases of the circulatory system
CPT/HCPCS: 36415; 85610; 93005

== ENCOUNTER → 2022-05-08 11:50 | Outpatient (REF) | payer BC, SELFPAY ==
--- NOTE | 2022-05-08 11:57 | CA_ITS ---
Acquisition Time: 2022-05-08 12:42:25 Total Exercise Time: 00:11:47 Test Indications: CHEST PAIN Medications: ASA CYCLOBENZAPRINE PRAVASTATIN METOPROLOL TOPIRAMATE Protocol: PEYMAN Max HR: 179 BPM 107% of Pred: 167 BPM Max BP: 142/080 mmHG Max Work Load: 13.4 METS Exercise stress test using Peyman protocol, total of 11 min 47 sec. METS 13.4 and HR up to 107% of TAPHR. Pt tolerated well, denies any anginal sx. EKG without arrhythmia's ST depressions in leads V4-V5 suggestive of ischemia with T inversions in leads 2, 3, aVF, V4-V6. Normotensive response to exercise Test reviewed with Dr. Vo. Referred By: Moo Vo Overread By: Violet Terrell NP
== END ==
LOC: HO.CARD 11:50
PROVIDERS: PCP Internal Medicine; Visit Provider Internal Medicine Cardiovascular Disease
DX: I20.0 Unstable angina (principal)
CPT/HCPCS: 93017

== ENCOUNTER → 2022-05-26 16:06 | Outpatient (BNVA) | payer BC, SELFPAY | PROVIDERS: PCP Internal Medicine; Visit Provider Nurse Practitioner Family | DX: Z13.89 Encounter for screening for other disorder (principal) ==

== ENCOUNTER 2022-05-26 16:35 | Outpatient (REF) | payer BC, SELFPAY ==
--- NOTE | ~2022-05-26 | US_ITS ---
EXAMINATION: US ARTERIAL DUPLEX UPPER EXTREMITY, RIGHT CLINICAL INFORMATION: Right wrist palpable lump status post cardiac catheterization with question of radial artery pseudoaneurysm. COMPARISON: None available. TECHNIQUE: Duplex arterial study was performed of the right upper extremity with particular attention to the area of clinical concern. FINDINGS: The radial artery and radial veins are normal. There is no pseudoaneurysm. The palpable area at the right wrist is a hypoechoic mass measuring 1.0 x 0.3 x 1.2 cm, possibly a post-access resolving hematoma. US/US arterial duplex UE RT IMPRESSION: 1. No evidence of pseudoaneurysm. 2. Probable small hematoma responsible for the palpable abnormality.
== END 2022-05-26 16:36 | disposition home or self-care (01) ==
LOC: HO.US 16:35
PROVIDERS: PCP Internal Medicine; Visit Provider Nurse Practitioner Family
DX: Z48.89 Encounter for other specified surgical aftercare (principal); I72.9 Aneurysm of unspecified site; R60.0 Localized edema; Z98.890 Other specified postprocedural states
CPT/HCPCS: 93931

== ENCOUNTER → 2022-06-02 14:37 | Outpatient (BNVA) | payer BC, SELFPAY | PROVIDERS: PCP Internal Medicine; Visit Provider Internal Medicine Cardiovascular Disease | DX: I25.10 Atherosclerotic heart disease of native coronary artery without angina pectoris (principal); R00.2 Palpitations | CPT/HCPCS: 93005 ==

== ENCOUNTER → 2022-06-11 13:20 | Outpatient (REF) | payer BC, SELFPAY ==
--- NOTE | 2022-06-11 13:24 | HM_ITS ---
* Total monitoring time about 3 days. * Underlying rhythm is sinus. Average ventricular rate 75/Min. Range 47 to 121/Min. * Occasional ventricular ectopy. [place] of 1.1%. * Rare supraventricular ectopy. * No significant pauses or AV blocks. * Patient marker count 1; used in association with sinus tachycardia. Rapid/fast heartbeat in diary correlates with sinus tachycardia. MTDD
== END ==
LOC: HO.CARD 13:20
PROVIDERS: PCP Internal Medicine; Visit Provider Internal Medicine Cardiovascular Disease
DX: R00.2 Palpitations (principal)
CPT/HCPCS: 93242

== ENCOUNTER → 2022-06-26 14:49 | Outpatient (REF) | payer BC, SELFPAY ==
--- NOTE | 2022-06-26 14:51 | CA_ITS ---
Transthoracic Echocardiogram Patient (Last, First, Middle): Clifford Tang, Gender: Male Date of : 1970 Age: 51 Procedure Date: 06/26/2022 Procedure Type: Transthoracic Echocardiogram Location: OP Height: 185.42 cm Weight: 83.46 kg BSA: 2.08 m2 Heart Rate: bpm BP: 114 / 70 mmHg Soaker Soda Worker: TO Referring MD: Moo Vo MD Symptoms: I25.10 - Atherosclerotic heart disease of [place] coronary artery without... Study Quality: Fair Conclusions: - The left ventricular systolic function is low normal. The calculated ejection fraction is 54% by biplane method. - The basal inferior segment is hypokinetic. - No obvious valvular pathology seen on this study. Findings Left Ventricle Normal left ventricular cavity size. There is normal left ventricular wall thickness. The left ventricular systolic function is low normal. The calculated ejection fraction is 54% by biplane method. There is evidence of regional wall motion abnormalities. Diastolic function is normal for age. LV peak GLS -17.4%. Wall Motion Rest Echo Findings The basal inferior segment is hypokinetic. Right Ventricle Mildly increased right ventricular cavity size. There is normal right ventricular systolic function. Atria Both atria are normal in size. Aortic Valve There is a normal trileaflet aortic valve. There is no aortic valve stenosis. There is no aortic valve regurgitation. Mitral Valve The mitral valve appears normal. There is no mitral valve regurgitation. There is no mitral valve stenosis. Pulmonic Valve The pulmonic valve is likely normal. Tricuspid Valve There is trace tricuspid valve regurgitation. There is no evidence of pulmonary hypertension. Great Vessels The asc aorta is normal in size. Venous The inferior vena cava is normal in size and collapses greater than 50% with inspiration. Pericardium/Pleural There is no evidence of pericardial effusion. Prior Study Comparison No prior study available for comparison. Recommendations, Care & Conclusions No obvious valvular pathology seen on this study. Measurements 2D Linear Measurements IVSd: 0.92 0.6-0.9/0.6-1.0 cm LVIDd: 4.86 3.9-5.3/4.2-5.9 cm LVIDd Index: 2.34 2.4-3.2/2.2-3.1 cm/m2 LVIDs: 3.07 2.0-3.6 cm LVPWd: 0.90 0.7-1.1 cm LA Diam: 2.90 2.7-3.8/3.0-4.0 cm LAIDs Index: 1.39 1.5-2.3 cm/m2 LV Mass: 189.78 67-162/88-224 g LV Mass Index: 91.24 43-95/49-115 g/m2 LVOT Diam: 2.40 3.0+(-)1.3 cm 2D Systolic Function EF 4C: 53.40 >55% EF 2C: 52.60 >55% EF BiP: 53.50 >55% Mitral Valve MV Pk E: 0.47 MV PK A: 0.44 MV Decel Time: 291.00 E/A: 1.10 E'Lateral: 11.50 E'Medial: 8.59 E/E' Med: 5.40 E/E' Lat: 4.10 PHT: 85.00 MVA PHT: 2.[address] [place]: 1.61 Aortic Valve AoV Pk Duncan: 1.22 AoV Mn Duncan: 0.87 AoV VTI: 0.24 AoV Pk Grad: 6.00 Aov Mn Grad: 3.00 BARBIE Cont.VTI: 3.66 LVOT LVOT Pk Duncan: 1.06 LVOT Mn Duncan: 0.66 LVOT VTI: 0.20 LVOT Pk Grad: 4.00 LVOT Mn Grad: 2.00 LVOT Diam: 2.40 LVOT Area: 4.52 Diastolic Function MV Pk E: 0.47 MV Pk A: 0.44 E/A: 1.10 E'Medial: 8.59 E/E' Med: 5.40 E' Laterial: 11.50 E/E' Lat: 4.10 Right Ventricle TAPSE (mm): 26.10 TVS' Duncan: 13.10 Tricuspid Valve TR Pk Duncan: 2.13 TR Pk Grad: 18.00 RA Press: 3.00 RVSP: 21.00 Great Vessels Aorta Sinus of Valsalva: 4.00 2.0-3.5 cm Ao Asc: 3.10 2.1-3.4 cm Updated in Other Vendor System with Status of Final Job Valencia MD electronically signed on 06/28/2022 12:16:28 PM with status of Final
== END ==
LOC: HO.CARD 14:49
PROVIDERS: PCP Internal Medicine; Visit Provider Internal Medicine Cardiovascular Disease
DX: I25.10 Atherosclerotic heart disease of native coronary artery without angina pectoris (principal)
CPT/HCPCS: 93306; 93356

== ENCOUNTER → 2022-07-24 09:23 | Outpatient (REF) | payer BC, SELFPAY ==
--- NOTE | ~2022-07-24 | NM_ITS ---
Exercise Myocardial perfusion study Indication: Frequent PVCs with recent stenting to evaluate for myocardial ischemia Technique: The patient was brought in for an exercise perfusion study on 07/24/2022. Patient performed exercise as per Antonio protocol and was injected 30 mCi of sestamibi was given intravenously one target HR was achieved. Images were obtained using the SPECT gamma camera interlaced with the gating device. Images were obtained in supine position. Resting perfusion study was performed on 07/25/2022. Patient was administered 30 mCi of sestamibi intravenously at rest. Images were then obtained in supine position. Images obtained with and without CT attenuation. Total DLP 98 mGy-cm. Images were processed with the software and compared side to side in short axis, horizontal long axis and vertical long axis views. Findings: The stress perfusion study showed non attenuated images show mildly reduced uptake in the basal and mid inferior wall of the LV myocardium. Remainder of the LV myocardium is normally perfused. Attenuation corrected images show normal uptake of radiotracer in all segments of LV myocardium.. The gated study shows mildly reduced LV systolic function with calculated LVEF of 48%. LV cavity is normal in in size. The gated study shows normal systolic wall thickening and contraction of all segments. There is no transient ischemic dilation. Resting study shows non attenuated images show no change in perfusion pattern compared to stress perfusion study. Gating at rest reveals normal systolic wall motion with ejection fraction at 49%. The findings are consistent with normal myocardial perfusion. NM/NM cardiolite stress test Impression: 1. Normal myocardial perfusion 2. Gated LVEF is 48%, although visually appears to be higher. Correlate with echocardiogram 3. Transient ischemic dilatation not present Stress EKG is negative for ischemia
--- NOTE | 2022-07-24 09:27 | CA_ITS ---
Acquisition Time: 2022-07-24 09:41:15 Total Exercise Time: 00:11:01 Test Indications: HYPERLIPIDEMIA Medications: SEE H Protocol: PEYMAN Max HR: 164 BPM 98% of Pred: 166 BPM Max BP: 154/064 mmHG Max Work Load: 13.4 METS Exercise stress test exercise 11 min 1 sec of Peyman protocol achieving 98% MPHR, with mild SOB, no chest discofmort, with isoalted PVCs and PACs and sinus arrhythmia in recovery, with normotensive response to exercise, without EKG changes. Nuclear images pending. Test reviewed with Dr. Sheppard. Referred By: Moo Vo Overread By: CAMMY ANDINO
== END ==
LOC: HO.CARD 09:23
PROVIDERS: PCP Internal Medicine; Visit Provider Internal Medicine Cardiovascular Disease
DX: I25.10 Atherosclerotic heart disease of native coronary artery without angina pectoris (principal); R93.1 Abnormal findings on diagnostic imaging of heart and coronary circulation
CPT/HCPCS: 78452; 93017; A9500

== ENCOUNTER → 2022-09-01 15:12 | Outpatient (BNVA) | payer BC, SELFPAY | PROVIDERS: PCP Internal Medicine; Referring Provider Internal Medicine; Visit Provider Internal Medicine Cardiovascular Disease ==

== ENCOUNTER 2022-12-09 08:25 | Outpatient (REF) | payer BC, SELFPAY ==
[2022-12-09 11:40] LABS: Cholesterol 143 mg/dL (<200); HDL Cholesterol 50 mg/dL (>40); LDL Cholesterol Calculated 81 mg/dL (<100); Triglycerides 62 mg/dL (<150)
[2022-12-11 16:04] LABS: CRP High Sensitivity 0.7 mg/L
== END 2022-12-09 08:26 | disposition home or self-care (01) ==
LOC: HO.10HDL 08:25
PROVIDERS: Visit Provider Internal Medicine Cardiovascular Disease
DX: I25.10 Atherosclerotic heart disease of native coronary artery without angina pectoris (principal); E78.5 Hyperlipidemia, unspecified
CPT/HCPCS: 36415; 80061; 86141

== ENCOUNTER 2022-12-25 11:02 | Outpatient (AMB) | payer BC, SELFPAY ==
--- NOTE | 2022-12-25 11:08 | A.OFFPC_ITS ---
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 Accompanied by: Self / Same As Patient Allergies metoprolol Adverse Reaction (Severe, Verified 12/25/22 11:11) Migraine ezetimibe [From Zetia] Adverse Reaction (Mild, Verified 12/25/22 11:11) abd pain Medication List - Last Reconciled 12/25/22 by Lary Lee MD aspirin 81 mg PO DAILY cyclobenzaprine 10 mg PO BEDTIME PRN evolocumab (Repatha SureClick) 140 mg subcut Q2W rizatriptan 10 mg PO BID PRN MDD 20mg rosuvastatin 40 mg PO DAILY ticagrelor 90 mg PO BID topiramate take 100mg (2tablets) in pm and 1 in am Tobacco use date assessed: 12/25/22 Dental Screening Dental Screen Date: 12/25/22 Did you have a dental visit in the last 12 months?: Yes Did you have a dental problem in the last 6 months where you did not have access to dental care?: No Was dental information given to patient?: Patient has dentist HPI Annual PE HPI Details 52-year-old male with a history of hyper cholesterolemia BPH migraine right inguinal hernia coming in for physical exam last seen in September 2021 patient's colonoscopy is up-to-date review of the notes cardiology August 2022 CAD with drug-eluting stent to circumflex moderate in proximal LAD recent myocardial imaging normal June echocardiogramThe left ventricular systolic function is low normal. The calculated ejection fraction is 54% by biplane method. - The basal inferior segment is hypokine tic. - No obvious valvular pathology seen on this feng May stress testNormal myocardial perfusion 2. Gated LVEF is 48%, although visually appears to be higher. Correlate with echocardiogram 3. Transient ischemic dilatation not pre sent Holter June 2022otal monitoring time about 3 days. Underlying rhythm is sinus. Average ventricular rate 75/Min. Range 47 to 121/Min. Occasional ventricular ectopy. [place] of 1.1%. Rare supraventricular ectopy. No significant pauses or AV blocks. Patient marker count 1; used in association with sinus tachycardia. Rapid/fast heartbeat in diary correlates with sinus tachycardia. 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: [facility] Medical History (Updated 12/25/22 @ 12:02 by Lary Lee MD) CAD (coronary artery disease) Pseudoaneurysm Cervical spinal stenosis Hypercholesterolemia Schatzki's ring Cyst of left kidney Adhesive capsulitis of left shoulder Migraine Surgical History Stented coronary artery S/P cardiac cath S/P shoulder surgery Family History Father Heart disease Renal cell cancer Prostate cancer Mother Hypertension Maternal Aunt Breast cancer Maternal Uncle Prostate cancer Heart disease Maternal Uncle Heart disease Brother Alcohol abuse Mental health disorder Social History (Updated 12/25/22 @ 12:03 by Lary Lee MD) Housing: House Alcohol intake: current Alcohol intake frequency: holidays/special occasions only Alcohol type: beer Patient Tobacco Use Status: Never used Tobacco e-Cigarette/Vaping Use: Never Used Second Hand Smoke Exposure: No service: No Current occupational status: employed 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 Jacek Starkey, Sanna Caro, Efrain Bradley and colleagues, with an educational brayden from [employer]. Review of Systems Const Denies poor appetite and Denies weakness Eyes Denies no additional complaints ENT Reports Normal hearing present, Denies dizziness, Denies nasal congestion, Denies tinnitus and Denies sore throat Card Denies chest pain, Denies syncope, Denies rapid heart rate and Denies dyspnea Resp Denies cough and Denies dyspnea GI Denies change in stool character, Reports constipation, Denies diarrhea, Denies nausea and Denies vomiting Denies dysuria and Denies urinary frequency Neuro Reports Normal hearing present, Denies confusion, Denies dizziness, Denies syncope and Denies weakness Psych Denies confusion Physical exam (Primary Care) Vital Signs: Last Vital Signs Pulse 64 10/19/23 11:10 BP 118/72 12/25/22 11:10 Pulse Ox 98 12/25/22 11:10 Oxygen Delivery Method Room Air 12/25/22 11:10 BMI result Body Mass Index 24.5 Tobacco/Smoking Status: Tobacco use Status Tobacco use date assessed 12/25/22 12/25/22 11:17 Patient Tobacco Use Status Never used Tobacco 12/25/22 11:14 Tobacco use type 09/21/20 11:21 e-Cigarette/Vaping Use Never Used 12/25/22 11:14 Thrive Assessment: Date of Thrive Assessment Date Thrive assessed 09/23/21 12/25/22 11:09 Const General: No confusion Orientation/consciousness: No confusion HENMT Head: Yes normocephalic Ears: external ears normal and TM's normal bilaterally Face and sinus: Yes normal facial exam Mouth: moist mucous membranes Throat: Yes tonsils normal Eyes Conjunctivae: conjunctivae normal Pupils: Equal, round and reactive pupils present and Pupil accommodation reflex normal Direct Ophthalmoscopy: normal light reflex Neck Neck: No lymphadenopathy Thyroid: Thyroid normal Chest Chest palpation & inspection: normal inspection of the chest Resp Effort & Inspection: normal respiratory effort and no audible wheezes Auscultation: clear to auscultation bilaterally, no crackles, no wheezes and lung sounds not diminished Cardio Rate: regular rate Rhythm: regular rhythm Peripheral pulses: radial pulses present and dorsalis pedis present GI Palpation (GI): no masses Auscultation: normal bowel sounds and normoactive bowel sounds Rectal Exam - Male: Yes deferred Skin General skin exam: no rashes or lesions noted Rashes: no rashes Neuro General: No confusion Cranial nerves: Yes Equal, round and reactive pupils present and Yes Normal hearing present Cognition (Neuro): normal cognition Gait exam (Neuro): Normal gait present Motor exam (neuro): 5/5 motor strength present throughout Deep tendon reflexes (DTR's): Right brachioradialis reflex intensity grade: 2+, Left brachioradialis reflex intensity grade: 2+, Right patellar reflex intensity grade: 2+ and Left patellar reflex intensity grade: 2+ Extrem General: No edema Assessment and Plan Assessment & Plan (1) Annual physical exam: Code(s): Z00.00 - Encounter for general adult medical examination without abnormal findings (2) CAD (coronary artery disease): Comment: Circumflex artery, was stented with drug-eluting stent. Moderate disease in proximal LAD 05/2022 Dr. Dupree Code(s): I25.10 - Atherosclerotic heart disease of [place] coronary artery without angina pectoris Plan: Control the cholesterol, weight, blood pressure continue with aspirin and presently on dual anti-platelet therapy (3) Hypercholesterolemia: Code(s): E78.00 - Pure hypercholesterolemia, unspecified Plan: Avoid fried foods, chicken skin, eggs, butter margarine, pastries and meat. Be it pork or beef they have a lot of cholesterol LDL goal of less than 70 and triglyceride of less than 150 (4) BPH (benign prostatic hyperplasia): Code(s): N40.0 - Benign prostatic hyperplasia without lower urinary tract symptoms Qualifiers: Lower urinary tract symptom presence: symptoms present Lower urinary tract symptom detail: incomplete bladder emptying Qualified Code(s): N40.1 - Benign prostatic hyperplasia with lower urinary tract symptoms; R39.14 - Feeling of incomplete bladder emptying Orders: Orders Complete Blood Count Auto Diff 3 Months I25.10 - Atherosclerotic heart disease of [place] coronary artery without angina pectoris Free T4 (Free Thyroxine) 3 Months I25.10 - Atherosclerotic heart disease of [place] coronary artery without angina pectoris Vitamin B12 and Folate 3 Months I25.10 - Atherosclerotic heart disease of [place] coronary artery without angina pectoris Prostate Specific Antigen Scr 3 Months I25.10 - Atherosclerotic heart disease of [place] coronary artery without angina pectoris Comprehensive Met. Panel 3 Months I25.10 - Atherosclerotic heart disease of [place] coronary artery without angina pectoris Thyroid Stimulating Hormone 3 Months I25.10 - Atherosclerotic heart disease of [place] coronary artery without angina pectoris Lipid Panel 3 Months E78.00 - Pure hypercholesterolemia, unspecified, I25.10 - Atherosclerotic heart disease of [place] coronary artery without angina pectoris Medications: Discontinued alirocumab (Praluent Pen) Discontinued Reason: Insurance Denied 75 mg subcut Q14D 90 days 6 mL 3RF Coding Level of Care Code Est Pt Prev Care 40-64y(80183) Diagnoses Annual physical exam Z00.00 CAD (coronary artery disease) I25.10 Hypercholesterolemia E78.00 Benign prostatic hyperplasia with incomplete bladder emptying N40.1; R39.14 Lower urinary tract symptom presence: symptoms present Lower urinary tract symptom detail: incomplete bladder emptying
[2022-12-25 11:10] VITALS: BP 118/72; PULSE 64; O2SAT 98; BMI 24.5
== END 2022-12-25 12:18 | disposition home or self-care (01) ==
PROVIDERS: PCP Internal Medicine; Visit Provider Internal Medicine
DX: Z00.00 Encounter for general adult medical examination without abnormal findings (principal); I25.10 Atherosclerotic heart disease of native coronary artery without angina pectoris; E78.00 Pure hypercholesterolemia, unspecified; N40.1 Benign prostatic hyperplasia with lower urinary tract symptoms; R39.14 Feeling of incomplete bladder emptying
CPT/HCPCS: 99396

== ENCOUNTER 2023-02-23 15:01 | Outpatient (AMB) | payer BC, SELFPAY ==
--- NOTE | 2023-02-23 15:02 | A.OFFVIS_ITS ---
Intake Vital Signs 02/23/23 15:04 Height 6 ft 1 in Weight 187 lb 6.287 oz BMI 24.7 BP 110/70 Blood Pressure Location Lt brachial Position Sitting Pulse 68 Intake Visit Reasons: 6 month follow up Intake Note: 6 month follow-up Allergies metoprolol Adverse Reaction (Severe, Verified 12/25/22 11:11) Migraine ezetimibe [From Zetia] Adverse Reaction (Mild, Verified 12/25/22 11:11) abd pain Medication List - Last Reconciled 02/23/23 by Moo Vo MD aspirin 81 mg PO DAILY cyclobenzaprine 10 mg PO BEDTIME PRN evolocumab (Repatha SureClick) 140 mg subcut Q2W rizatriptan 10 mg PO BID PRN MDD 20mg rosuvastatin 40 mg PO DAILY ticagrelor 90 mg PO BID topiramate take 100mg (2tablets) in pm and 1 in am HPI HPI Comments History of Present Illness Details Clifford comes for follow-up. Overall he has been doing well. He denies any exertional chest pain similar to his angina. Continues to appoint chest pain in the precordial area which has been worked up in the past. He denies any prolonged palpitation or skipped heartbeats. Denies any shortness of breath, orthopnea, PND. He started on Zetia and developed urine retention which is highly unusual although this will stop and is urinary symptoms have resolved. Since then he has started on PCSK9 inhibitor therapy and after 3rd dose notices some flu-like symptoms and also notices muscle aches in the upper back. However he also has been working her but thinks that this is related to PCSK9 inhibitor PFS Medical History CAD (coronary artery disease) Pseudoaneurysm Cervical spinal stenosis Hypercholesterolemia Schatzki's ring Cyst of left kidney Adhesive capsulitis of left shoulder Migraine Surgical History Stented coronary artery S/P cardiac cath S/P shoulder surgery Family History Father Heart disease Renal cell cancer Prostate cancer Mother Hypertension Maternal Aunt Breast cancer Maternal Uncle Prostate cancer Heart disease Maternal Uncle Heart disease Brother Alcohol abuse Mental health disorder Social History Housing: House Alcohol intake: current Alcohol intake frequency: holidays/special occasions only Alcohol type: beer Patient Tobacco Use Status: Never used Tobacco e-Cigarette/Vaping Use: Never Used Second Hand Smoke Exposure: No service: No Current occupational status: employed 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 Current occupational exposures/hazards: No Cognitive needs: No Hearing needs: No Vision needs: No Review of Systems Const Denies chills, Denies fatigue, Denies fever(s), Denies frequent falls, Denies weakness, Denies weight gain and Denies weight loss ENT Denies dizziness Card Denies chest pain, Denies leg edema, Denies lightheadedness, Denies palpitations, Denies dyspnea, Denies dyspnea on exertion, Denies orthopnea and Denies other (loss of consciousness) Resp Denies cough, Denies dyspnea and Denies dyspnea on exertion GI Denies hematochezia and Denies change in stool character Musc Denies abnormal gait, Denies muscle weakness, Denies numbness, Denies radiating pain into limb and Denies tingling Neuro Denies Abnormal speech present, Denies abnormal gait, Denies dizziness, Denies frequent falls, Denies numbness, Denies tingling and Denies weakness Endo Denies fatigue and Denies palpitations Physical Exam Vital Signs: Last Vital Signs Pulse 68 02/23/23 15:04 BP 110/70 02/23/23 15:04 BMI result Body Mass Index 24.7 Const General: cooperative, comfortable, no acute distress, well developed, alert, awake, Physically active and well groomed Nutritional Appearance: well nourished and thin Orientation/consciousness: patient oriented x3 Limitations: no limitations HEENT Head: Yes normocephalic and Yes atraumatic Neck Neck: Yes trachea midline, Yes supple and Yes no JVD Resp Effort & Inspection: normal respiratory effort Auscultation: clear to auscultation bilaterally Cardio Jugular venous distension: no JVD Palpation: normal PMI Rate: regular rate Rhythm: regular rhythm Heart sounds: S1 normal heart sound present, S2 normal heart sound present, no click, no gallops, no murmurs and no rubs GI Auscultation: normal bowel sounds Skin General skin exam: no rashes or lesions noted Neuro General: patient oriented x3 and no focal motor deficits Speech: No Abnormal speech present Extrem General: Yes no clubbing, cyanosis or edema Assessment & Plan Assessment & Plan (1) CAD (coronary artery disease): Comment: Circumflex artery, was stented with drug-eluting stent. Moderate disease in proximal LAD 05/2022 Dr. Dupree Code(s): I25.10 - Atherosclerotic heart disease of [place] coronary artery without angina pectoris Plan: CAD with drug-eluting stent to the circumflex artery with moderate disease in the LAD system. No recurrent symptoms of angina. He requires aggressive risk factor modification. LDL with improved on statin therapy but not at 81 mg/dL P importance of better lipid management was discussed. He is currently on combination of statin as well as PCSK9 inhibitor therapy. Follow-up lipid panel as planned. If LDL is extremely well optimized may cut down the dose of statin therapy to see if his muscle aches improved. Continue Brilinta and aspirin for total of 1 year. Blood pressure is currently well optimized. Brilinta can be discontinued at 1 year anniversary in continue lifelong aspirin therapy. Encouraged to continue maintain physical activity as tolerated. (2) PVCs (premature ventricular contractions): Code(s): I49.3 - Ventricular premature depolarization Plan: PVCs which are suppressed without any symptoms. No specific therapy recommended for the same. Continue monitor for symptoms. Will follow up in the clinic in 1 year's time, sooner p.r.n.. Thank you for allowing me to partake in his care Coding Level of Care Code Est Pt Level 4 (79348) Diagnoses CAD (coronary artery disease) I25.10 PVCs (premature ventricular contractions) I49.3
[2023-02-23 15:04] VITALS: BP 110/70; PULSE 68; BMI 24.7
== END 2023-02-23 15:46 | disposition home or self-care (01) ==
PROVIDERS: PCP Internal Medicine; Visit Provider Internal Medicine Cardiovascular Disease
DX: I25.10 Atherosclerotic heart disease of native coronary artery without angina pectoris (principal); I49.3 Ventricular premature depolarization
CPT/HCPCS: 99214

== ENCOUNTER → 2023-02-23 15:01 | Outpatient (BNVA) | payer BC, SELFPAY | PROVIDERS: PCP Internal Medicine; Visit Provider Internal Medicine Cardiovascular Disease ==

== ENCOUNTER 2023-03-13 07:48 | Outpatient (REF) | payer BC, SELFPAY | END 2023-03-13 07:49 | disposition home or self-care (01) | LOC: HO.LAB 07:48 | PROVIDERS: PCP Internal Medicine; Visit Provider Internal Medicine Cardiovascular Disease | DX: Z12.5 Encounter for screening for malignant neoplasm of prostate (principal); I25.10 Atherosclerotic heart disease of native coronary artery without angina pectoris; E78.00 Pure hypercholesterolemia, unspecified | CPT/HCPCS: 36415; 80053; 80061; 82607; 82746; 84153; 84439; 84443; 85025 ==

== ENCOUNTER 2023-04-06 16:46 | Outpatient (AMB) | payer BC, SELFPAY ==
[2023-04-06 16:47] VITALS: BP 136/90; PULSE 66; O2SAT 99; BMI 23.7
--- NOTE | 2023-04-06 16:47 | A.OFFPC_ITS ---
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 Patient's colonoscopy was last done in January 2019 tubular adenoma. Patient has seen Cardiology patient had a problem with Zetia with urinary retention which is unusual. Started on PCS canine inhibitor and after the 3rd dose had flu-like symptoms and muscle aches diagnosis of CAD with drug-eluting stents to the circumflex [facility] Medical History CAD (coronary artery disease) Pseudoaneurysm Cervical spinal stenosis Hypercholesterolemia Schatzki's ring Cyst of left kidney Adhesive capsulitis of left shoulder Migraine Surgical History Stented coronary artery S/P cardiac cath S/P shoulder surgery Family History Father Heart disease Renal cell cancer Prostate cancer Mother Hypertension Maternal Aunt Breast cancer Maternal Uncle Prostate cancer Heart disease Maternal Uncle Heart disease Brother Alcohol abuse Mental health disorder Social History Housing: House Alcohol intake: current Alcohol intake frequency: holidays/special occasions only Alcohol type: beer Patient Tobacco Use Status: Never used Tobacco e-Cigarette/Vaping Use: Never Used Second Hand Smoke Exposure: No service: No Current occupational status: employed 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 1. Little interest or pleasure in doing things: not at all 2. Feeling down, depressed, or hopeless: not at all 3. Trouble falling or staying asleep, or sleeping too much: not at all 4. Feeling tired or having little energy: not at all 5. Poor appetite or overeating: not at all 6. Feeling bad about yourself - or that you are a failure or have let yourself or your family down: not at all 7. Trouble concentrating on things, such as reading the newspaper or watching television: not at all 8. Moving or speaking so slowly that other people could have noticed. Or the opposite - being so fidgety or restless that you have been moving around a lot more than usual: not at all 9. Thoughts that you would be better off or of hurting yourself in some way: not at all Total score: 0 Depression Screening Interpretation: Negative Depression Screening Done: Yes Source: Developed by Drs. Jacek Starkey, Sanna Caro, Efrain Bradley and colleagues, with an educational brayden from [employer]. Thrive Questionnaire Date Thrive assessed: 04/06/23 I am a: Patient What is your living situation today?: I have a steady place to live Within the past 12 months, did the food you bought not last and you didn't have the money to get more?: Never true Within the past 12 months, did you worry whether your food would run out before you got money to buy more?: Never true Do you have trouble paying for medicines?: No Do you have trouble getting transportation to medical appointments?: No Do you have trouble paying your heating and electricity bill?: No Do you have trouble taking care of your child, family member or friend?: No Do you have trouble with day-to-day activities such as bathing, preparing meals, shopping, managing finances, etc.?: No Are you currently unemployed and looking for a job?: No Are you interested in more education?: No Please select the resources that you would like help with: None THRIVE Score: 0 AUDIT C Alcohol Use Questionnaire (AUDIT-C) 1. How often do you have a drink containing alcohol?: Monthly or less 2. How many drinks containing alcohol do you have on a typical day when you are drinking?: 1 or 2 3. How often do you have six or more drinks on one occasion?: Never Total Score: 1 CHANDRA-7 AMB Questionnaire CHANDRA-7 Date CHANDRA - 7 assessed: 04/06/23 Source: Developed by Drs. Jacek Starkey, Sanna Caro, Efrain Bradley and colleagues, with an educational brayden from [employer]. Physical exam (Primary Care) Vital Signs: Last Vital Signs Pulse 66 04/06/23 16:47 BP 136/90 H 04/06/23 16:47 Pulse Ox 99 04/06/23 16:47 Oxygen Delivery Method Room Air 04/06/23 16:47 BMI result Body Mass Index 23.7 Tobacco/Smoking Status: Tobacco use Status Tobacco use date assessed 04/06/23 04/06/23 16:51 Patient Tobacco Use Status Never used Tobacco 04/06/23 16:51 Tobacco use type 09/21/20 11:21 e-Cigarette/Vaping Use Never Used 04/06/23 16:51 PHQ-9: PHQ-9 Score PHQ-9: Total score 0 04/06/23 16:51 Depression Screening Interpretation: Negative Thrive Assessment: Date of Thrive Assessment Date Thrive assessed 04/06/23 04/06/23 16:51 Const General: alert; No acute distress Eyes Conjunctivae: conjunctivae normal Resp Auscultation: clear to auscultation bilaterally Cardio Rate: regular rate Rhythm: regular rhythm GI Inspection: Yes normal to inspection Extrem General: Yes normal to inspection and No edema Assessment and Plan Assessment & Plan (1) CAD (coronary artery disease): Comment: Circumflex artery, was stented with drug-eluting stent. Moderate disease in proximal LAD 05/2022 Dr. Dupree Code(s): I25.10 - Atherosclerotic heart disease of [place] coronary artery without angina pectoris Plan: Control the cholesterol, weight, blood pressure, continue with aspirin. Continue with Brilinta until May 2023. (2) Hypercholesterolemia: Code(s): E78.00 - Pure hypercholesterolemia, unspecified Plan: Avoid fried foods, chicken skin, eggs, butter margarine, pastries and meat. Be it pork or beef they have a lot of cholesterol LDL goal of less than 70 and triglyceride of less than 150. Patient presently on Repatha and rosuvastatin (3) BPH (benign prostatic hyperplasia): Code(s): N40.0 - Benign prostatic hyperplasia without lower urinary tract symptoms Qualifiers: Lower urinary tract symptom presence: symptoms present Lower urinary tract symptom detail: incomplete bladder emptying Qualified Code(s): N40.1 - Benign prostatic hyperplasia with lower urinary tract symptoms; R39.14 - Feeling of incomplete bladder emptying Plan: Stable (4) Migraine: Code(s): G43.909 - Migraine, unspecified, not intractable, without status migrainosus Plan: Take the migraine medication as needed (5) Tubular adenoma of colon: Code(s): D12.6 - Benign neoplasm of colon, unspecified Plan: colon test this year. (6) Protrusion of intervertebral disc of lumbosacral region: Comment: 2003 Code(s): M51.27 - Other intervertebral disc displacement, lumbosacral region Coding Level of Care Code Est Pt Level 4 (01948) Diagnoses CAD (coronary artery disease) I25.10 Hypercholesterolemia E78.00 Benign prostatic hyperplasia with incomplete bladder emptying N40.1; R39.14 Lower urinary tract symptom presence: symptoms present Lower urinary tract symptom detail: incomplete bladder emptying Migraine G43.909 Tubular adenoma of colon D12.6 Protrusion of intervertebral disc of lumbosacral region M51.27
== END 2023-04-06 17:38 | disposition home or self-care (01) ==
PROVIDERS: PCP Internal Medicine; Visit Provider Internal Medicine
DX: I25.10 Atherosclerotic heart disease of native coronary artery without angina pectoris (principal); E78.00 Pure hypercholesterolemia, unspecified; N40.1 Benign prostatic hyperplasia with lower urinary tract symptoms; R39.14 Feeling of incomplete bladder emptying; G43.909 Migraine, unspecified, not intractable, without status migrainosus; D12.6 Benign neoplasm of colon, unspecified; M51.27 Other intervertebral disc displacement, lumbosacral region
CPT/HCPCS: 99214

== ENCOUNTER 2023-06-03 08:10 | Outpatient (REF) | payer BC, SELFPAY ==
[2023-06-03 08:58] LABS: Cholesterol 99 mg/dL (<200); HDL Cholesterol 60 mg/dL (>40); LDL Cholesterol Calculated 31 mg/dL (<100); Triglycerides 44 mg/dL (<150)
[2023-06-04 14:34] LABS: CRP High Sensitivity 1.5 mg/L
== END 2023-06-03 08:11 | disposition home or self-care (01) ==
LOC: HO.LAB 08:10
PROVIDERS: PCP Internal Medicine; Visit Provider Internal Medicine Cardiovascular Disease
DX: I25.10 Atherosclerotic heart disease of native coronary artery without angina pectoris (principal); E78.5 Hyperlipidemia, unspecified
CPT/HCPCS: 36415; 80061; 86141

== ENCOUNTER 2023-12-30 08:22 | Outpatient (AMB) | payer BC, SELFPAY ==
--- NOTE | 2023-12-30 08:27 | MHC.PC.OV ---
Vital Signs 12/30/23 08:28 Height 6 ft 1 in Weight 184 lb BMI 24.3 BP 118/72 Blood Pressure Location Lt brachial Position Sitting Pulse 71 Pulse Source Pulse Oximeter Pulse Oximetry (%) 98 Oxygen Delivery Method Room Air Intake Visit Reasons: pe Allergies metoprolol Adverse Reaction (Severe, Verified 12/30/23 08:28) Migraine ezetimibe [From Zetia] Adverse Reaction (Mild, Verified 12/30/23 08:28) abd pain Medication List - Last Reconciled 12/30/23 by Lary Lee MD aspirin 81 mg PO DAILY cyclobenzaprine 10 mg PO BEDTIME PRN evolocumab (Repatha SureClick) 140 mg subcut Q2W fexofenadine 180 mg PO DAILY rizatriptan 10 mg PO BID PRN MDD 20mg rosuvastatin 20 mg (1/2 x 40 mg) PO DAILY topiramate take 100mg (2tablets) in pm and 1 in am Tobacco use date assessed: 12/30/23 Dental Screening Dental Screen Date: 12/30/23 Did you have a dental visit in the last 12 months?: Yes Did you have a dental problem in the last 6 months where you did not have access to dental care?: No Was dental information given to patient?: Patient has dentist HPI pe HPI Details 53-year-old male with coronary artery disease hypercholesterolemia BPH history of migraine history of tubular adenoma of the colon coming in for physical exam last seen in 03/28/2023. Patient was supposed to be have being colonoscopy this year. Review of the notes had blood work done earlier. colon test to schedule, cervical stenosis- seen [facility] and placed on steroids. Patient complains of chronic left calf pain deny any fall or trauma has had this for multiple years and continues to bother. Patient can not describe Uribe feeling but denies any mass states cramping but has not resolved. Comes in intermittently no redness no mass felt. [facility] Medical History CAD (coronary artery disease) Pseudoaneurysm Cervical spinal stenosis Hypercholesterolemia Schatzki's ring Cyst of left kidney Adhesive capsulitis of left shoulder Migraine Surgical History Stented coronary artery S/P cardiac cath S/P shoulder surgery Family History Father Heart disease Renal cell cancer Prostate cancer Mother Hypertension Maternal Aunt Breast cancer Maternal Uncle Prostate cancer Heart disease Maternal Uncle Heart disease Brother Alcohol abuse Mental health disorder Social History (Updated 12/30/23 @ 08:48 by Lary Lee MD) Housing: House Alcohol intake: current Alcohol intake frequency: holidays/special occasions only Alcohol type: beer Comment: 2 days weekend 2-3 beers Patient Tobacco Use Status: Never used Tobacco Tobacco use type: Cigarette e-Cigarette/Vaping Use: Never Used Second Hand Smoke Exposure: No service: No Current occupational status: employed 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 1. Little interest or pleasure in doing things: not at all 2. Feeling down, depressed, or hopeless: not at all 3. Trouble falling or staying asleep, or sleeping too much: not at all 5. Poor appetite or overeating: not at all 6. Feeling bad about yourself - or that you are a failure or have let yourself or your family down: not at all Depression Screening Interpretation: Negative Depression Screening Done: Yes 45535 - PHQ-9 Billing: Yes Source: Developed by Drs. Jacek Starkey, Sanna Caro, Efrain Bradley and colleagues, with an educational brayden from [employer]. Thrive Questionnaire Date Thrive assessed: 12/30/23 I am a: Patient What is your living situation today?: I have a steady place to live Within the past 12 months, did the food you bought not last and you didn't have the money to get more?: Never true Within the past 12 months, did you worry whether your food would run out before you got money to buy more?: Never true Do you have trouble paying for medicines?: No Do you have trouble getting transportation to medical appointments?: No Do you have trouble paying your heating and electricity bill?: No Do you have trouble taking care of your child, family member or friend?: No Do you have trouble with day-to-day activities such as bathing, preparing meals, shopping, managing finances, etc.?: No Are you currently unemployed and looking for a job?: No Are you interested in more education?: No Currently or been in a relationship where the following occur: No concerns reported THRIVE Score: 0 AUDIT C Alcohol Use Questionnaire (AUDIT-C) 3. How often do you have six or more drinks on one occasion?: Never Total Score: 0 CHANDRA-7 AMB Questionnaire CHANDRA-7 Date CHANDRA - 7 assessed: 12/30/23 Feeling nervous, anxious, or on edge: 0 = Not at all Not being able to stop or control worryin = Not at all Worrying too much about different things: 0 = Not at all Trouble relaxin = Not at all Being so restless that it is hard to sit still: 0 = Not at all Becoming easily annoyed or irritable: 0 = Not at all Feeling afraid as if something awful might happen: 0 = Not at all Total CHANDRA-7 score (0-4 normal; 5-9 mild; 10-14 moderate; 15-21 severe): 0 Source: Developed by Drs. Jacek Starkey, Sanna Caro, Efrain Bradley and colleagues, with an educational brayden from [employer]. Review of Systems Const Denies poor appetite and Denies weakness Eyes Denies no additional complaints ENT Reports Normal hearing present, Denies dizziness, Denies nasal congestion, Denies tinnitus and Denies sore throat Card Denies chest pain, Denies syncope, Denies rapid heart rate and Denies dyspnea Resp Denies cough and Denies dyspnea GI Denies change in stool character, Reports constipation, Denies diarrhea, Denies nausea and Denies vomiting Denies dysuria and Denies urinary frequency Neuro Reports Normal hearing present, Denies confusion, Denies dizziness, Denies syncope and Denies weakness Psych Denies confusion Physical exam (Primary Care) Vital Signs: Last Vital Signs Pulse 71 12/30/23 08:28 BP 118/72 12/30/23 08:28 Pulse Ox 98 12/30/23 08:28 Oxygen Delivery Method Room Air 12/30/23 08:28 BMI result Body Mass Index 24.3 Tobacco/Smoking Status: Tobacco use Status Tobacco use date assessed 12/30/23 12/30/23 08:32 Patient Tobacco Use Status Never used Tobacco 12/30/23 08:48 Tobacco use type Cigarette 12/30/23 08:48 e-Cigarette/Vaping Use Never Used 12/30/23 08:48 Depression Screening Interpretation: Negative Thrive Assessment: Date of Thrive Assessment Date Thrive assessed 12/30/23 12/30/23 08:32 Currently or been in a relationship where the following occur: No concerns reported Const General: No confusion Orientation/consciousness: No confusion Eyes Conjunctivae: conjunctivae normal Resp Auscultation: clear to auscultation bilaterally Cardio Rate: regular rate Rhythm: regular rhythm GI Inspection: Yes normal to inspection Neuro General: No confusion Cranial nerves: Yes Normal hearing present Extrem General: Yes normal to inspection and No edema Coding Level of Care Code Est Pt Prev Care 40-64y(71869) Diagnoses Annual physical exam Z00.00 Coronary artery disease involving [place] coronary artery of [place] heart without angina pectoris I25.10 Associated angina: without angina Coronary Disease-Associated Artery/Lesion type: [place] artery [place] vs. transplanted heart: [place] heart Tubular adenoma of colon D12.6 Hypercholesterolemia E78.00 Benign prostatic hyperplasia with incomplete bladder emptying N40.1; R39.14 Lower urinary tract symptom detail: incomplete bladder emptying Lower urinary tract symptom presence: symptoms present Leg pain, left M79.605 Assessment & Plan Assessment & Plan (1) Annual physical exam: Code(s): Z00.00 - Encounter for general adult medical examination without abnormal findings Category: Medical Plan: Patient is advised to eat healthy, keep well hydrated, keep active and have adequate sleep. (2) CAD (coronary artery disease): Comment: Circumflex artery, was stented with drug-eluting stent. Moderate disease in proximal LAD 05/2022 Dr. Dupree Code(s): I25.10 - Atherosclerotic heart disease of [place] coronary artery without angina pectoris Category: Medical Qualifiers: Associated angina: without angina Coronary Disease-Associated Artery/Lesion type: [place] artery [place] vs. transplanted heart: [place] heart Qualified Code(s): I25.10 - Atherosclerotic heart disease of [place] coronary artery without angina pectoris Plan: Control the cholesterol, weight, blood pressure, continue with aspirin (3) Tubular adenoma of colon: Code(s): D12.6 - Benign neoplasm of colon, unspecified Category: Medical Plan: Patient is reminded about colonoscopy this year (4) Hypercholesterolemia: Code(s): E78.00 - Pure hypercholesterolemia, unspecified Category: Medical Plan: Avoid fried foods, chicken skin, eggs, butter margarine, pastries and meat. Be it pork or beef they have a lot of cholesterol patient on Repatha and rosuvastatin 20 mg once a day LDL goal of less than 60 (5) BPH (benign prostatic hyperplasia): Code(s): N40.0 - Benign prostatic hyperplasia without lower urinary tract symptoms Category: Medical Qualifiers: Lower urinary tract symptom detail: incomplete bladder emptying Lower urinary tract symptom presence: symptoms present Qualified Code(s): N40.1 - Benign prostatic hyperplasia with lower urinary tract symptoms; R39.14 - Feeling of incomplete bladder emptying Plan: Stable (6) Leg pain, left: Code(s): M79.605 - Pain in left leg Category: Medical Plan: X-ray and ultrasound requested Orders: Orders Complete Blood Count Auto Diff Today E78.00 - Pure hypercholesterolemia, unspecified Comprehensive Met. Panel Today E78.00 - Pure hypercholesterolemia, unspecified Free T4 (Free Thyroxine) Today E78.00 - Pure hypercholesterolemia, unspecified Prostate Specific Antigen Scr Today E78.00 - Pure hypercholesterolemia, unspecified Vitamin B12 and Folate Today E78.00 - Pure hypercholesterolemia, unspecified Lipid Panel Today E78.00 - Pure hypercholesterolemia, unspecified Thyroid Stimulating Hormone Today E78.00 - Pure hypercholesterolemia, unspecified XR tibia fibula LT 2V Today M79.605 - Pain in left leg US extremity nonvascular Today M79.605 - Pain in left leg
[2023-12-30 08:28] VITALS: BP 118/72; PULSE 71; O2SAT 98; BMI 24.3
== END 2023-12-30 09:08 | disposition home or self-care (01) ==
PROVIDERS: PCP Internal Medicine; Visit Provider Internal Medicine
DX: Z00.00 Encounter for general adult medical examination without abnormal findings (principal); I25.10 Atherosclerotic heart disease of native coronary artery without angina pectoris; D12.6 Benign neoplasm of colon, unspecified; E78.00 Pure hypercholesterolemia, unspecified; N40.1 Benign prostatic hyperplasia with lower urinary tract symptoms; R39.14 Feeling of incomplete bladder emptying; M79.605 Pain in left leg

== ENCOUNTER → 2023-12-30 08:22 | Outpatient (BNVA) | payer BC, SELFPAY | PROVIDERS: PCP Internal Medicine; Visit Provider Internal Medicine ==

== ENCOUNTER 2024-01-12 14:20 | Outpatient (REF) | payer BC, SELFPAY ==
--- NOTE | ~2024-01-12 | US_ITS ---
EXAMINATION: LEFT LOWER EXTREMITY ULTRASOUND CLINICAL INFORMATION: Pain in left leg. COMPARISON: None available. TECHNIQUE: High frequency linear ultrasound transducer was used to examine the area of clinical concern. FINDINGS: No abnormality is seen. There is no mass or fluid collection visualized. US/US extremity nonvascular duque IMPRESSION: No abnormality is seen. Electronically signed by: Chandrakant Browning MD 02/08/2024 08:44 PM EST
== END 2024-01-12 14:21 | disposition home or self-care (01) ==
LOC: HO.HMGCX 14:20
PROVIDERS: PCP Internal Medicine; Visit Provider Internal Medicine
DX: M79.605 Pain in left leg (principal)
CPT/HCPCS: 76882

== ENCOUNTER 2024-03-15 07:24 | Day surgery (SDC) | payer BC, SELFPAY ==
[2024-02-12 12:02] VITALS: BMI 23.7
--- NOTE | 2024-02-15 08:21 | HO.ANESPROP2 ---
Documented by User: Echo Gillespie NP 02/29/24 12:52 HPI - Anesthesia Eval Consult details Narrative: 53yo M for Colonoscopy, 03/15/24 Follows [facility] Cardiology for CAD s/p stent 05/2022. Stable at 02/2023 office visit with 1 year f/u. Letter stating optimized and OK to hold asa. PMFSH Active Problems Active Problems: All Active Problems Leg pain, left (Acute) Protrusion of intervertebral disc of lumbosacral region (Acute) Tubular adenoma of colon (Acute) PVCs (premature ventricular contractions) (Acute) Visit for wound check (Acute) Crescendo angina (Acute) Inguinal hernia of right side without obstruction or gangrene (Acute) Annual physical exam (Acute) Vitamin B12 deficiency (Acute) BPH (benign prostatic hyperplasia) (Acute) CAD (coronary artery disease) (Acute) Migraine (Acute) Cervical spinal stenosis (Acute) Hypercholesterolemia (Acute) Adhesive capsulitis of left shoulder (Acute) Past Medical History Medical History Frozen shoulder Hyperlipidemia CAD (coronary artery disease) Pseudoaneurysm Cervical spinal stenosis Hypercholesterolemia Schatzki's ring Cyst of left kidney Adhesive capsulitis of left shoulder Migraine Family History Family History Father Heart disease Renal cell cancer Prostate cancer Mother Hypertension Maternal Aunt Breast cancer Maternal Uncle Prostate cancer Heart disease Maternal Uncle Heart disease Brother Alcohol abuse Mental health disorder Surgical History Surgical History H/O colonoscopy Stented coronary artery S/P cardiac cath S/P shoulder surgery Social History Social History Housing: House Alcohol intake: current Alcohol intake frequency: holidays/special occasions only Alcohol type: beer Comment: 2 days weekend 2-3 beers Patient Tobacco Use Status: Never used Tobacco Tobacco use type: Cigarette e-Cigarette/Vaping Use: Never Used Second Hand Smoke Exposure: No Use of substances other than those prescribed or required for medical reasons: No Are you DNR?: No Advance Directives: No Advance Directives Information Provided: Yes service: No Current occupational status: employed 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 Current occupational exposures/hazards: No Cognitive needs: No Hearing needs: No Vision needs: No Meds Allergies Allergy/AdvReac Type Severity Reaction Status Date / Time metoprolol AdvReac Severe Migraine Verified 03/15/24 07:47 ezetimibe [From Zetia] AdvReac Mild abd pain Verified 03/15/24 07:47 Home Medications ?Medication ?Instructions ?Recorded ?Confirmed ?Last Taken ?Type rizatriptan 10 mg tablet 10 mg PO BID PRN Migraine Headache 06/02/22 03/15/24 Unknown History topiramate 50 mg tablet 50 mg PO DAILY 12/25/22 03/15/24 Unknown History evolocumab 140 mg/mL subcutaneous 140 mg subcut Q2W 02/12/24 03/15/24 Unknown History pen injector (Brian Bravo) Exam Height,Weight and Vital Signs: Height 6 ft 1 in Weight 81.647 kg Narrative Narrative: NE cardiolite stress test 07/2022 Impression: 1. Normal myocardial perfusion 2. Gated LVEF is 48%, although visually appears to be higher. Correlate with echocardiogram 3. Transient ischemic dilatation not present Stress EKG is negative for ischemia Assessment and Plan Assessment Anesthesia Assessment: Chart Reviewed Documented by User: Iliana Herrera MD 03/15/24 08:38 PMFSH Past Medical History Medical History Frozen shoulder Hyperlipidemia CAD (coronary artery disease) Pseudoaneurysm Cervical spinal stenosis Hypercholesterolemia Schatzki's ring Cyst of left kidney Adhesive capsulitis of left shoulder Migraine Family History Family History Father Heart disease Renal cell cancer Prostate cancer Mother Hypertension Maternal Aunt Breast cancer Maternal Uncle Prostate cancer Heart disease Maternal Uncle Heart disease Brother Alcohol abuse Mental health disorder Family history of problems with anesthesia: No Surgical History Surgical History H/O colonoscopy Stented coronary artery S/P cardiac cath S/P shoulder surgery History of Problems with Anesthesia: No Social History Social History Housing: House Alcohol intake: current Alcohol intake frequency: holidays/special occasions only Alcohol type: beer Comment: 2 days weekend 2-3 beers Patient Tobacco Use Status: Never used Tobacco Tobacco use type: Cigarette e-Cigarette/Vaping Use: Never Used Second Hand Smoke Exposure: No Use of substances other than those prescribed or required for medical reasons: No Are you DNR?: No Advance Directives: No Advance Directives Information Provided: Yes service: No Current occupational status: employed 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 Current occupational exposures/hazards: No Cognitive needs: No Hearing needs: No Vision needs: No Meds Allergies Allergy/AdvReac Type Severity Reaction Status Date / Time metoprolol AdvReac Severe Migraine Verified 03/15/24 07:47 ezetimibe [From Zetia] AdvReac Mild abd pain Verified 03/15/24 07:47 Home Medications ?Medication ?Instructions ?Recorded ?Confirmed ?Last Taken ?Type rizatriptan 10 mg tablet 10 mg PO BID PRN Migraine Headache 06/02/22 03/15/24 Unknown History topiramate 50 mg tablet 50 mg PO DAILY 12/25/22 03/15/24 Unknown History evolocumab 140 mg/mL subcutaneous 140 mg subcut Q2W 02/12/24 03/15/24 Unknown History pen injector (Repatha SureClick) Exam Airway Mallampati Class: II TM Dist: >3cm Neck ROM: Full Heart: rrr Lungs: cta Assessment and Plan Assessment Anesthesia Assessment: Anesthesia Plan Discussed Final Anesthetic Review Family History of Problems with Anesthesia: No History of Problems with Anesthesia: No NPO: Yes ASA Class: III Final Preanesthetic Review: No Changes in Pt Med Stat, Meds/Allgs Chart Reviewed, Consent Obtained/Reviewed and Anes Risks/Benef Reviewed Patient Risk: Intermediate Procedure Risk: Low Anesthetic Plan Anesthetic Plan: MAC: Disposition: Standard PACU
[2024-03-11 15:07] VITALS: BMI 23.7
--- OUTSIDE RECORDS SUMMARY | 2024-03-15 07:27 | XMS_ITS ---
Author Organization [facility] Address [address] [place] [address] Care Team Providers Care Wig Comber Name Role Phone Lary Lee MD Primary Care Provider Arun Licona Jr REASON FOR VISIT screening Encounters Encounter Location Date Provider Diagnosis [facility] [place] [address] [place] [id number] 02/16/2024 Arun Persaud Jr PLAN OF TREATMENT Next Appt Details Provider Name:Arun clark Jr, 03/15/2024 11:50:00 AM, [address] [place], [place], [phone],
--- OUTSIDE RECORDS SUMMARY | 2024-03-15 07:27 | XMS_ITS ---
Author Organization [facility] Address [address] [place] [phone] Care Team Providers Care Screening Nurse Name Role Phone Lary Lee MD Primary Care Provider Arun Licona Jr Unavailable REASON FOR VISIT fax clearance note to sss Encounters Encounter Location Date Provider Diagnosis [facility] [address] [place] [phone] 02/11/2024 Arun Persaud Jr PLAN OF TREATMENT Next Appt Details Provider Name:Arun clark Jr, 03/15/2024 11:50:00 AM, [address] [place] [address] , [place], [place], [phone],
--- OUTSIDE RECORDS SUMMARY | 2024-03-15 07:28 | XMS_ITS | Patient Health Record ---
Author Organization [facility] Address [address] [place] [address] Care Team Providers Care Speedboat Driver Name Role Phone Lary Lee MD Primary Care Provider Arun Licona Jr Unavailable [phone] ALLERGIES Allergen (clinical drug ingredient) Drug/Non Drug Allergy documented on EMR Reaction Allergy Type Onset Date Status metoprolol Metoprolol migraine Drug Allergy Activ e seasonal/ numerous allergies to enviroment (uncoded) Unknown Allergy Active REASON FOR REFERRAL No Information MEDICATIONS Medication SIG (Take, Route, Frequency, Duration) Notes Start Date End Date Status Aspirin 81 Active Diclofenac Not-Takin g Ondansetron Not-Taki ng Cyclobenzaprine HCl Not-Taking Rosuvastatin Calcium 20 MG 1 tablet Orally Once a day Active Topiramate 50 MG 1 tablet Orally Once a day for 30 day(s) Active Repatha SureClick 140 MG/ML INJECT 140 MG SUBCUTANEOUSLY EVERY 2 WEEKS Subcutaneous for 84 Active Rizatriptan Benzoate Not-Taking SOCIAL HISTORY Tobacco Use: Social History Observation Description Date Details (start date - stop date) Never Smoker NA - NA Sex Assigned At : Social History Observation Description Sex Assigned At Unknown Tobacco Use/Smoking Question Answer Notes Patient is a nonsmoker Alcohol Screen Question Answer Notes Did you have a drink contain ing alcohol in the past year? Yes How often did you have a dri nk containing alcohol in the past year? Never (0 point) How many drinks did you have on a typical day when you were drinking in the past year? 1 or 2 drinks (0 point) How often did you have 6 or more drinks on one occasion in the past year? Never (0 point) Points 0 Interpretation Negative PROBLEMS Problem Type ICD Code Onset Dates Problem Status W/U Status Risk SNOMED Code Notes Problem Colon cancer screening (Z12.11) Active confirmed 105034203 Problem Encounter for other preprocedural examination (Z01.818) Active confirmed 670992446 Problem Long-term use of aspirin therapy (Z79.82) Active confirmed 244002804 VITAL SIGNS Blood pressure diastolic 00 mm Hg 01/14/2024 Height 73 in 01/14/2024 Blood pressure systolic 00 mm Hg 01/14/2024 Weight 180 lbs 01/14/2024 BMI 23.75 kg/m2 01/14/2024 Encounters Encounter Location Date Provider Diagnosis [facility] [place] [address] [place] [id number] 02/16/2024 Arun Persaud Jr [facility] [place] [address] [place] [id number] 03/15/2024 Arun Persaud Jr [facility] [address] [place] [phone] 01/14/2024 Arun Persaud Jr Colon cancer screening Z12.11 ; Encounter for other preprocedural examination Z01.818 and Long-term use of aspirin therapy Z79.82 [facility] [address] [place] [phone] 02/11/2024 Arun Persaud Jr ASSESSMENTS Encounter Date Diagnosis Assessment Notes Treatment Notes Treatment Clinical Notes 01/14/2024 Colon cancer screening (ICD-10 - Z12.11) Colonoscopy material was printed 01/14/2024 Encounter for other preprocedural examination (ICD-10 - Z01.818) 01/14/2024 Long-term use of aspirin therapy (ICD-10 - Z79.82) PLAN OF TREATMENT Future Test Test Name Order Date COLONOSCOPY 12/02/2018 COLONOSCOPY 01/14/2024 Next Appt Details Provider Name:Arun clark Jr, 03/15/2024 11:50:00 AM, [address] [place] [address], [phone], Insurance Providers Payer Name Payer Address Payer Phone Subscriber Number Group Number Insured Name Patient Relationship to Insured Coverage Start Date Coverage End Date [facility] [address] [place], [place] [id number] JAY THRASHER Self - patient is the insured MEDICAL (GENERAL) HISTORY Medical History History ICD Code Hyperlipidemia migraine headaches Coronary artery disease with stent place ment 05/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
[2024-03-15 07:46] VITALS: BMI 24.0
[2024-03-15 07:50] VITALS: BP 136/89; PULSE 71; RESP 16; TEMP 36.7; O2SAT 99
[2024-03-15] MEDS: Lactated Ringers 1,000 ML 100 ML IVCONT (08:07)
--- NOTE | 2024-03-15 08:15 | MHC.SHP ---
Pre-Procedural Eval Section A - 24 Hr Update-Section A only Date of Service: 03/15/24 Section B - Complete if H&P > 30 days Chief Complaint: Encounter for screening for malignant neoplasm of Details of Present Illness: see H&P no changes Relevant Family History (Specify if Yes): No Relevant Social History: None Present Medications: see Short Stay Collaborative assessment Medical History: No relevant PMH History of Previous Operations: No relevant previous surgery Allergies: Allergies Allergy/AdvReac Type Severity Reaction Status Date / Time metoprolol AdvReac Severe Migraine Verified 03/15/24 07:47 ezetimibe [From Zetia] AdvReac Mild abd pain Verified 03/15/24 07:47 Review of Systems Sugical H&P ROS: Negative: Constitution, Cardiovascular, Respiratory, Neurological, Psychiatric, Hem-Onc, Allergic/Immunologic, Gastrointestinal, Genitourinary, Musculoskeletal, Integumentary, Endocrine and Eyes/Ears/Nose/Throat Exam Surgical H&P Exam: Normal: HEENT, Normal: Heart, Normal: Lungs, Normal: Extremities, Normal: Abdomen, Normal: Skin and Normal: Neurological Plan Diagnosis/Plan: Unchanged I have reviewed the history and physical and performed a pertinent physical examination on my patient. No changes have occurred unless specified. Time Spent With Patient Time: Total time managing care of this patient today ____ minutes.
[2024-03-15 09:06] VITALS: BP 115/77; PULSE 72; RESP 16; TEMP 36.1; O2SAT 99
--- NOTE | 2024-03-15 09:20 | OP_ITS ---
DATE OF SERVICE: 03/15/2024 SURGEON: Arun Persaud MD INDICATIONS: Colon cancer screening and prior history of adenomatous colon polyps. PREOPERATIVE DIAGNOSIS: POSTOPERATIVE DIAGNOSIS: PROCEDURE PERFORMED: Colonoscopy to the terminal ileum. ESTIMATED BLOOD LOSS: COMPLICATIONS: ANESTHESIA: Monitored anesthesia care. ASSISTANTS: SPECIMENS: DESCRIPTION OF PROCEDURE: History and physical performed. The risks and benefits of the procedure were explained to the patient. Informed consent was obtained. The patient was placed in the left lateral decubitus position. A digital rectal exam was performed and was found to be normal. The Olympus pediatric video colonoscope was introduced into the rectum and advanced to the cecum. The cecum was identified by transillumination, palpation, and identification of ileocecal valve. Examination was performed. The scope was removed. He tolerated the procedure well and was returned to recovery area in stable condition. FINDINGS: The terminal ileum was examined and appeared normal. The visualized colonic mucosa was normal. The quality of the prep was good. No polyps were identified. There was mild sigmoid diverticulosis. Retroflexed examination showed moderate-sized internal hemorrhoids. IMPRESSION: Normal colonoscopy. RECOMMENDATIONS: 1. Follow up as needed. 2. Repeat colonoscopy is recommended in 10 years for average-risk individuals. MD KAILA Valencia/AMBER / [phone]
[2024-03-15 09:21] VITALS: BP 122/81; PULSE 64; RESP 18; TEMP 36.5; O2SAT 100
== END 2024-03-15 09:44 | disposition home or self-care (01) ==
PROVIDERS: PCP Internal Medicine; Visit Provider Internal Medicine Gastroenterology
PROC: 0DJD8ZZ Inspection of Lower Intestinal Tract, Via Natural or Artificial Opening Endoscopic (ICD-10-PCS; CPT 45378; principal; 2024-03-15 08:30)
DX: Z12.11 Encounter for screening for malignant neoplasm of colon (principal); Z86.0101 Personal history of adenomatous and serrated colon polyps; K57.30 Diverticulosis of large intestine without perforation or abscess without bleeding; K64.8 Other hemorrhoids; E78.5 Hyperlipidemia, unspecified; I25.10 Atherosclerotic heart disease of native coronary artery without angina pectoris; Z95.5 Presence of coronary angioplasty implant and graft; I72.9 Aneurysm of unspecified site; N40.0 Benign prostatic hyperplasia without lower urinary tract symptoms; G43.909 Migraine, unspecified, not intractable, without status migrainosus; N28.1 Cyst of kidney, acquired; Z79.82 Long term (current) use of aspirin; Z79.899 Other long term (current) drug therapy; Z88.8 Allergy status to other drugs, medicaments and biological substances
CPT/HCPCS: 45378; J2704

== ENCOUNTER 2024-03-31 12:49 | Outpatient (AMB) | payer BC, SELFPAY ==
--- NOTE | 2024-03-31 13:28 | AM.OFFWIN_ITS ---
Intake Vital Signs 03/31/24 13:30 Weight 190 lb BP 130/82 Blood Pressure Location Lt brachial Position Sitting Pulse 66 Pulse Source Pulse Oximeter Pulse Oximetry (%) 98 Oxygen Delivery Method Room Air Intake Visit Reasons: EP discomfort on RT side around the rib Intake Note: Patient here for tenderness on right side of ribs that has been present for about 2 weeks. Patient Tobacco Use Status: Never used Tobacco Allergies metoprolol Adverse Reaction (Severe, Verified 03/31/24 13:31) Migraine ezetimibe [From Zetia] Adverse Reaction (Mild, Verified 03/31/24 13:31) abd pain Do you need a note to return to daycare/school/sports/work: No HPI HPI Comments History of Present Illness Details 53 y/o male patient who presents to the walk in clinic with c/o right sided chest wall tenderness x 1 week. He denies SOB, CP, Palpitations or wheezing. He recently had Colonoscopy 1.5 weeks ago. [facility] Medical History Frozen shoulder Hyperlipidemia CAD (coronary artery disease) Pseudoaneurysm Cervical spinal stenosis Hypercholesterolemia Schatzki's ring Cyst of left kidney Adhesive capsulitis of left shoulder Migraine Surgical History H/O colonoscopy Stented coronary artery S/P cardiac cath S/P shoulder surgery Family History Father Heart disease Renal cell cancer Prostate cancer Mother Hypertension Maternal Aunt Breast cancer Maternal Uncle Prostate cancer Heart disease Maternal Uncle Heart disease Brother Alcohol abuse Mental health disorder Social History Housing: House Alcohol intake: current Alcohol intake frequency: holidays/special occasions only Alcohol type: beer Comment: 2 days weekend 2-3 beers Patient Tobacco Use Status: Never used Tobacco Tobacco use type: Cigarette e-Cigarette/Vaping Use: Never Used Second Hand Smoke Exposure: No service: No Current occupational status: employed 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 Current occupational exposures/hazards: No Cognitive needs: No Hearing needs: No Vision needs: No Review of Systems Const All systems reviewed & are unremarkable except as noted in HPI and below Physical Exam Vital Signs: Last Vital Signs Pulse 66 03/31/24 13:30 BP 130/82 03/31/24 13:30 Pulse Ox 98 03/31/24 13:30 Oxygen Delivery Method Room Air 03/31/24 13:30 Const General: cooperative and no acute distress Nutritional Appearance: well nourished Orientation/consciousness: patient oriented x3 Resp Effort & Inspection: normal respiratory effort and able to speak in complete sentences Auscultation: clear to auscultation bilaterally, no crackles, no rales, no rhonchi and no wheezes Cardio Heart sounds: S1 normal heart sound present and S2 normal heart sound present Neuro General: patient oriented x3, gait normal and moves all extremities Psych Speech and movement: Normal speech and movement present Assessment & Plan Assessment & Plan (1) Chest wall tenderness: Code(s): R07.89 - Other chest pain Plan: Recent Colonoscopy could explain Trapped Air in the chest wall cavity. Advised to monitor red flag signs such as Severe CP, SOB, Wheezing and Diiziness. Acetaminophen for pain relief. Coding Level of Care Code Est Pt Level 3 (32535) Diagnoses Chest wall tenderness R07.89 Time Spent (min) 15
[2024-03-31 13:30] VITALS: BP 130/82; PULSE 66; O2SAT 98
== END 2024-03-31 14:17 | disposition home or self-care (01) ==
PROVIDERS: PCP Internal Medicine; Visit Provider Nurse Practitioner Family
DX: R07.89 Other chest pain (principal)

== ENCOUNTER 2024-04-08 07:29 | Outpatient (REF) | payer BC, SELFPAY ==
[2024-04-08 07:41] LABS: MANUAL DIFF FLAG NO
[2024-04-08 08:17] LABS: Basophils Percent Auto 0.8 % (0-2); Eosinophils Absolute Auto 0.2 X10*3/uL (0.0-0.4); Eosinophils Percent Auto 3.9 % (0-4); Hematocrit 47.1 % (42.0-52.0); Hemoglobin 16.3 g/dl (14.0-18.0); Imm Gran Abs Auto 0.01 X10*3/uL (0.00-0.03); Imm Gran Pct Auto 0.2 % (0.0-0.4); Lymphocytes Absolute Auto 1.9 X10*3/uL (1.2-4.9); Lymphocytes Percent Auto 36.8 % (20-40); Mean Corpuscular HGB Conc 34.6 g/dl (31.0-36.0); Mean Corpuscular Hemoglobin 30.8 pg (27.0-33.0); Mean Corpuscular Volume 88.9 fL (80.0-98.0); Mean Platelet Volume 10.5 fL (9.4-12.4); Monocytes Absolute Auto 0.6 X10*3/uL (0.1-1.2); Monocytes Percent Auto 11.3 % (2-11); Neutrophils Absolute Auto 2.4 x10*3/uL (2.0-8.3); Platelet Count 244 X10*3/uL (160-400); Red Cell Distribution Width 12.6 % (11.0-16.0); White Blood Count 5.1 X10*3/uL (4.8-10.8)
[2024-04-08 08:57] LABS: Albumin Level 4.2 g/dL (3.5-5.0); Alkaline Phosphatase 65 U/L (39-117); Anion Gap 9 (12-20); Aspartate Amino Transferase 34 U/L (5-37); Bilirubin Total 0.5 mg/dL (0.0-1.0); Blood Urea Nitrogen 23 mg/dL (9-16); Calcium 9.7 mg/dL (8.4-10.2); Carbon Dioxide 23 mmol/L (22-29); Chloride 115 mmol/L (96-108); Cholesterol 88 mg/dL (<200); Estimated Glomerular Filt Rate > 60; Glucose Random 86 mg/dL (60-115); HDL Cholesterol 55 mg/dL (>40); LDL Cholesterol Calculated 26 mg/dL (<100); Potassium 4.2 mmol/L (3.3-5.1); Sodium 143 mmol/L (135-145); Triglycerides 38 mg/dL (<150)
[2024-04-08 09:16] LABS: Alanine Aminotransferase 48 U/L (0-40); Free T4 (Free Thyroxine) 1.05 ng/dL (0.71-1.85); Thyroid Stimulating Hormone 1.42 uIU/mL (0.32-4.0)
[2024-04-08 09:19] LABS: Prostate Specific Antigen Scr 4.67 ng/mL (<0.05-4.0); Vitamin B12 318 pg/mL (200-900)
[2024-04-08 10:04] LABS: Folate 10.8 ng/mL (> or = 4.0)
== END 2024-04-08 07:30 | disposition home or self-care (01) ==
LOC: HO.LAB 07:29
PROVIDERS: Absent Provider Internal Medicine Cardiovascular Disease; PCP Internal Medicine; Visit Provider Internal Medicine
DX: E78.00 Pure hypercholesterolemia, unspecified (principal); Z12.5 Encounter for screening for malignant neoplasm of prostate
CPT/HCPCS: 36415; 80053; 80061; 82607; 82746; 84153; 84439; 84443; 85025

== ENCOUNTER → 2024-04-11 10:06 | Outpatient (BNV) | payer BC, SELFPAY | PROVIDERS: PCP Internal Medicine; Visit Provider Radiology Diagnostic Radiology | DX: R05.9 Cough, unspecified (principal) | CPT/HCPCS: 71101 ==

== ENCOUNTER 2024-04-18 13:08 | Outpatient (AMB) | payer BC, SELFPAY ==
[2024-04-18 13:10] VITALS: BP 110/74; PULSE 67; BMI 24.1
--- NOTE | 2024-04-18 13:10 | MHC.OFFVIS ---
Vital Signs 04/18/24 13:10 Height 6 ft 1 in Weight 182 lb 15.739 oz BMI 24.1 BP 110/74 Blood Pressure Location Lt brachial Position Sitting Pulse 67 Intake Visit Reasons: 1 year follow up Intake Note: 1 year follow-up with ekg feeling good Log Yard Manager Required: No Allergies metoprolol Adverse Reaction (Severe, Verified 03/31/24 13:31) Migraine ezetimibe [From Zetia] Adverse Reaction (Mild, Verified 03/31/24 13:31) abd pain Medication List - Last Reconciled 04/18/24 by Moo Vo MD aspirin 81 mg PO DAILY cyclobenzaprine 10 mg PO BEDTIME PRN evolocumab (Repatha SureClick) 140 mg subcut Q2W rizatriptan 10 mg PO BID PRN MDD 20mg rosuvastatin 20 mg (1/2 x 40 mg) PO DAILY topiramate 50 mg PO DAILY HPI Comments Details: Clifford comes for follow-up. He has been doing well. No exertional symptoms of chest pain or shortness of breath as before. Denies any symptoms of palpitations. Since colonoscopy has a reproducible pain over the right lower anterior thoracic area. He said this prevents him from taking deep breath or coughing. He takes all his medications. Last LDL of 26 mg/dL. No significant palpitations. No lightheadedness, syncope. [facility] Medical History Crescendo angina Frozen shoulder Hyperlipidemia CAD (coronary artery disease) Pseudoaneurysm Cervical spinal stenosis Hypercholesterolemia Schatzki's ring Cyst of left kidney Adhesive capsulitis of left shoulder Migraine Surgical History H/O colonoscopy Stented coronary artery S/P cardiac cath S/P shoulder surgery Family History Father Heart disease Renal cell cancer Prostate cancer Mother Hypertension Maternal Aunt Breast cancer Maternal Uncle Prostate cancer Heart disease Maternal Uncle Heart disease Brother Alcohol abuse Mental health disorder Social History Housing: House Alcohol intake: current Alcohol intake frequency: holidays/special occasions only Alcohol type: beer Comment: 2 days weekend 2-3 beers Patient Tobacco Use Status: Never used Tobacco Tobacco use type: Cigarette e-Cigarette/Vaping Use: Never Used Second Hand Smoke Exposure: No service: No Current occupational status: employed 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 Current occupational exposures/hazards: No Cognitive needs: No Hearing needs: No Vision needs: No Review of Systems Const Denies chills, Denies fatigue, Denies fever(s), Denies frequent falls, Denies weakness, Denies weight gain and Denies weight loss ENT Denies dizziness Card Denies chest pain, Denies leg edema, Denies lightheadedness, Denies palpitations, Denies dyspnea, Denies dyspnea on exertion, Denies orthopnea and Denies other (loss of consciousness) Resp Denies cough, Denies dyspnea and Denies dyspnea on exertion GI Denies hematochezia and Denies change in stool character Musc Denies abnormal gait, Denies muscle weakness, Denies numbness, Denies radiating pain into limb and Denies tingling Neuro Denies Abnormal speech present, Denies abnormal gait, Denies dizziness, Denies frequent falls, Denies numbness, Denies tingling and Denies weakness Endo Denies fatigue and Denies palpitations Physical Exam Vital Signs: Last Vital Signs Pulse 67 04/18/24 13:10 BP 110/74 04/18/24 13:10 BMI result Body Mass Index 24.1 Const General: cooperative, comfortable, no acute distress, well developed, alert, awake, Physically active and well groomed Nutritional Appearance: well nourished and thin Orientation/consciousness: patient oriented x3 Limitations: no limitations HEENT Head: Yes normocephalic and Yes atraumatic Neck Neck: Yes trachea midline, Yes supple and Yes no JVD Resp Effort & Inspection: normal respiratory effort Auscultation: clear to auscultation bilaterally Cardio Jugular venous distension: no JVD Palpation: normal PMI Rate: regular rate Rhythm: regular rhythm Heart sounds: S1 normal heart sound present, S2 normal heart sound present, no click, no gallops, no murmurs and no rubs GI Auscultation: normal bowel sounds Skin General skin exam: no rashes or lesions noted Neuro General: patient oriented x3 and no focal motor deficits Speech: No Abnormal speech present Extrem General: Yes no clubbing, cyanosis or edema Office Procedures EKG Details: EKG shows normal sinus rhythm nonspecific ST T wave changes 52977-Azbcapipfettmdlyc, Complete Assessment & Plan Assessment & Plan (1) CAD (coronary artery disease): Comment: Circumflex artery, was stented with drug-eluting stent. Moderate disease in proximal LAD 05/2022 Dr. Dupree Code(s): I25.10 - Atherosclerotic heart disease of tribal coronary artery without angina pectoris Category: Medical Qualifiers: Coronary Disease-Associated Artery/Lesion type: tribal artery [place] vs. transplanted heart: tribal heart Associated angina: without angina Qualified Code(s): I25.10 - Atherosclerotic heart disease of tribal coronary artery without angina pectoris Plan: CAD with drug-eluting stent to circumflex artery with nonobstructive disease in the segment. He is doing very well from cardiac perspective. No exertional symptoms at this point time. Continue lifelong aspirin therapy. His LDL is extremely well optimized on dual therapy with rosuvastatin as well as Repatha. Continue the same. No side effects related therapy. Pathophysiology of CAD was discussed. His current chest pain appears to be musculoskeletal and unlikely to represent myocardial ischemia. (2) PVCs (premature ventricular contractions): Code(s): I49.3 - Ventricular premature depolarization Category: Medical Plan: PVCs are suppressed. Currently not having any symptoms related to it. Stress mitigation strategies was discussed. Avoidance of stimulants was discussed. No pharmacotherapy indicated. Will follow up in the clinic in 1 year's time, sooner p.r.n.. Thank you for allowing me to partake in his care Coding Level of Care Code Est Pt Level 4 (01852) Complex EM visit Add On G2211 Diagnoses Coronary artery disease involving tribal coronary artery of tribal heart without angina pectoris I25.10 Coronary Disease-Associated Artery/Lesion type: tribal artery [place] vs. transplanted heart: tribal heart Associated angina: without angina PVCs (premature ventricular contractions) I49.3 CPT Codes EKG - CPT: 45813-Eyshjwdvstxnerjcf, Complete ([id number])
== END 2024-04-18 13:49 | disposition home or self-care (01) ==
PROVIDERS: PCP Internal Medicine; Visit Provider Internal Medicine Cardiovascular Disease
DX: I25.10 Atherosclerotic heart disease of native coronary artery without angina pectoris (principal); I49.3 Ventricular premature depolarization
CPT/HCPCS: 93010; 99214

== ENCOUNTER → 2024-04-18 13:08 | Outpatient (BNVA) | payer BC, SELFPAY | PROVIDERS: PCP Internal Medicine; Visit Provider Internal Medicine Cardiovascular Disease | DX: I25.10 Atherosclerotic heart disease of native coronary artery without angina pectoris (principal); I49.3 Ventricular premature depolarization | CPT/HCPCS: 93005 ==

== ENCOUNTER 2024-04-20 11:33 | Outpatient (AMB) | payer BC, SELFPAY ==
[2024-04-20 11:44] VITALS: BP 112/72; PULSE 62; O2SAT 97; BMI 25.3
--- NOTE | 2024-04-20 11:44 | A.OFFPC_ITS ---
Vital Signs 04/20/24 11:44 Height 6 ft 1 in Weight 192 lb BMI 25.3 BP 112/72 Blood Pressure Location Lt brachial Position Sitting Pulse 62 Pulse Source Pulse Oximeter Pulse Oximetry (%) 97 Oxygen Delivery Method Room Air Intake Visit Reasons: Per Dr. Lee Allergies metoprolol Adverse Reaction (Severe, Verified 04/20/24 11:45) Migraine ezetimibe [From Zetia] Adverse Reaction (Mild, Verified 04/20/24 11:45) abd pain Tobacco use date assessed: 04/20/24 Dental Screening Dental Screen Date: 04/20/24 Did you have a dental visit in the last 12 months?: Yes Did you have a dental problem in the last 6 months where you did not have access to dental care?: No Was dental information given to patient?: Patient has dentist HPI Per Dr. Lee HPI Details The patient is a 53-year-old male presenting with left leg pain. The patient last visited in December and has since noticed a weight gain of 10 pounds. He has a history of hypercholesterolemia for which he is managed with Repatha and rosuvastatin. During a recent visit to cardiology, his LDL cholesterol was noted to be 26 mg/dL. He maintains lifelong aspirin therapy for coronary artery disease. The patient underwent rib X-ray on April 11, which showed no evidence of rib fracture, and recent blood work on April 08 showing elevated liver function tests, attributed to long-standing fatty liver. The patient has a history of benign prostatic hyperplasia with a recent PSA level of 4.67, noted to be mildly elevated. A colonoscopy conducted in March 2024 revealed normal findings. Renal function tests and blood counts were within normal limits. The primary concern for this visit remains the acute onset of pain in the left leg, which coincided with the recent cardiology follow-up, though no specific diagnostic or treatment interventions for the leg pain have been attempted to date. [facility] Medical History (Updated 04/20/24 @ 12:29 by Lary Lee MD) Tubular adenoma of colon Crescendo angina Frozen shoulder Hyperlipidemia CAD (coronary artery disease) Pseudoaneurysm Cervical spinal stenosis Hypercholesterolemia Schatzki's ring Cyst of left kidney Adhesive capsulitis of left shoulder Migraine Surgical History H/O colonoscopy Stented coronary artery S/P cardiac cath S/P shoulder surgery Family History Father Heart disease Renal cell cancer Prostate cancer Mother Hypertension Maternal Aunt Breast cancer Maternal Uncle Prostate cancer Heart disease Maternal Uncle Heart disease Brother Alcohol abuse Mental health disorder Social History Housing: House Alcohol intake: current Alcohol intake frequency: holidays/special occasions only Alcohol type: beer Comment: 2 days weekend 2-3 beers Patient Tobacco Use Status: Never used Tobacco Tobacco use type: Cigarette e-Cigarette/Vaping Use: Never Used Second Hand Smoke Exposure: No service: No Current occupational status: employed 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 1. Little interest or pleasure in doing things: not at all 2. Feeling down, depressed, or hopeless: not at all 3. Trouble falling or staying asleep, or sleeping too much: not at all 4. Feeling tired or having little energy: not at all 5. Poor appetite or overeating: not at all 6. Feeling bad about yourself - or that you are a failure or have let yourself or your family down: not at all 7. Trouble concentrating on things, such as reading the newspaper or watching television: not at all 8. Moving or speaking so slowly that other people could have noticed. Or the opposite - being so fidgety or restless that you have been moving around a lot more than usual: not at all 9. Thoughts that you would be better off or of hurting yourself in some way: not at all Total score: 0 Depression Screening Interpretation: Negative Depression Screening Done: Yes 66198 - PHQ-9 Billing: Yes Source: Developed by Drs. Jacek Starkey, Sanna Caro, Efrain Bradley and colleagues, with an educational brayden from [employer]. Thrive Questionnaire Date Thrive assessed: 04/20/24 AUDIT C Alcohol Use Questionnaire (AUDIT-C) 3. How often do you have six or more drinks on one occasion?: Never Total Score: 0 CHANDRA-7 AMB Questionnaire CHANDRA-7 Date CHANDRA - 7 assessed: 04/20/24 Feeling nervous, anxious, or on edge: 0 = Not at all Not being able to stop or control worryin = Not at all Worrying too much about different things: 0 = Not at all Trouble relaxin = Not at all Being so restless that it is hard to sit still: 0 = Not at all Becoming easily annoyed or irritable: 0 = Not at all Feeling afraid as if something awful might happen: 0 = Not at all Total CHANDRA-7 score (0-4 normal; 5-9 mild; 10-14 moderate; 15-21 severe): 0 Source: Developed by Drs. Jacek Starkey, Sanna Caro, Efrain Bradley and colleagues, with an educational brayden from [employer]. Physical exam (Primary Care) Vital Signs: Last Vital Signs Pulse 62 04/20/24 11:44 BP 112/72 04/20/24 11:44 Pulse Ox 97 04/20/24 11:44 Oxygen Delivery Method Room Air 04/20/24 11:44 BMI result Body Mass Index 25.3 Tobacco/Smoking Status: Tobacco use Status Tobacco use date assessed 04/20/24 04/20/24 11:48 Patient Tobacco Use Status Never used Tobacco 04/20/24 11:48 Tobacco use type Cigarette 04/20/24 11:48 e-Cigarette/Vaping Use Never Used 04/20/24 11:48 PHQ-9: PHQ-9 Score PHQ-9: Total score 0 04/20/24 12:30 Depression Screening Interpretation: Negative Thrive Assessment: Date of Thrive Assessment Date Thrive assessed 04/20/24 04/20/24 11:48 Const General: alert; No acute distress Eyes Conjunctivae: conjunctivae normal Resp Auscultation: clear to auscultation bilaterally Cardio Rate: regular rate Rhythm: regular rhythm GI Inspection: Yes normal to inspection Extrem General: Yes normal to inspection and No edema Coding Level of Care Code Est Pt Level 4 (10387) Diagnoses Coronary artery disease involving [place] coronary artery of [place] heart without angina pectoris I25.10 Associated angina: without angina Coronary Disease-Associated Artery/Lesion type: [place] artery [place] vs. transplanted heart: [place] heart Hypercholesterolemia E78.00 Benign prostatic hyperplasia with incomplete bladder emptying N40.1; R39.14 Lower urinary tract symptom detail: incomplete bladder emptying Lower urinary tract symptom presence: symptoms present Elevated PSA R97.20 Right-sided chest pain R07.9 Additional Codes PHQ-9 - 87246 - PHQ-9 Billing: Yes ([id number]) Assessment & Plan Assessment & Plan (1) CAD (coronary artery disease): Comment: Circumflex artery, was stented with drug-eluting stent. Moderate disease in proximal LAD 05/2022 Dr. Dupree Code(s): I25.10 - Atherosclerotic heart disease of [place] coronary artery without angina pectoris Category: Medical Qualifiers: Associated angina: without angina Coronary Disease-Associated Artery/Lesion type: [place] artery [place] vs. transplanted heart: [place] heart Qualified Code(s): I25.10 - Atherosclerotic heart disease of [place] coronary artery without angina pectoris (2) Hypercholesterolemia: Code(s): E78.00 - Pure hypercholesterolemia, unspecified Category: Medical (3) BPH (benign prostatic hyperplasia): Code(s): N40.0 - Benign prostatic hyperplasia without lower urinary tract symptoms Category: Medical Qualifiers: Lower urinary tract symptom detail: incomplete bladder emptying Lower urinary tract symptom presence: symptoms present Qualified Code(s): N40.1 - Benign prostatic hyperplasia with lower urinary tract symptoms; R39.14 - Feeling of incomplete bladder emptying (4) Elevated PSA: Code(s): R97.20 - Elevated prostate specific antigen [PSA] Category: Medical (5) Right-sided chest pain: Code(s): R07.9 - Chest pain, unspecified Category: Medical Plan: reassurance and resolving Plan - Continue current lipid management with Repatha and rosuvastatin for hypercholesterolemia. Monitor cholesterol levels at regular intervals. - Manage coronary artery disease with lifelong aspirin therapy and regular cardiology reviews. - No acute intervention required for Benign prostatic hyperplasia; consider PSA monitoring and regular urological assessments. - No specific intervention for tubular adenoma, given normal findings on recent colonoscopy. - Elevated liver function tests and fatty liver are consistent with known history; advise lifestyle modifications to prevent progression. - Address acute left leg pain through further diagnostic evaluation to rule out potential causes such as vascular or neurological origins, with consideration for imaging or laboratory tests if symptoms persist.
--- OUTSIDE RECORDS SUMMARY | 2024-04-20 13:26 | XMS_ITS ---
Author Organization [facility] Address [address] [place] [phone] Care Team Providers Care Manager Internet Retails Sales Name Role Phone Lary Lee MD Primary Care Provider Arun Licona Jr Unavailable REASON FOR VISIT fax clearance note to sss Encounters Encounter Location Date Provider Diagnosis [facility] [address] [place] [phone] 02/11/2024 Arun Persaud Jr PLAN OF TREATMENT No Information
--- OUTSIDE RECORDS SUMMARY | 2024-04-20 13:26 | XMS_ITS ---
Author Organization [facility] Address [address] [place] [phone] Care Team Providers Care Director Of Regional Sales Name Role Phone Lary Lee MD Primary Care Provider Arun Licona Jr REASON FOR VISIT screening Encounters Encounter Location Date Provider Diagnosis [facility] Outpatient [address] [place], [place] [phone] 02/16/2024 Arun Persaud Jr PLAN OF TREATMENT No Information
--- OUTSIDE RECORDS SUMMARY | 2024-04-20 13:26 | XMS_ITS ---
Author Organization [facility] Address [address] [place] [address] Care Team Providers Care Uniformer Name Role Phone Lary Lee MD Primary Care Provider Arun Licona Jr Unavailable REASON FOR VISIT SCREENING Encounters Encounter Location Date Provider Diagnosis [facility] Outpatient [address], [place] [phone] 03/15/2024 Arun Persaud Jr Colon cancer screening Z12.11 ASSESSMENTS Encounter Date Diagnosis Assessment Notes Treatment Notes Treatment Clinical Notes 03/15/2024 Colon cancer screening (ICD-10 - Z12.11) PLAN OF TREATMENT No Information
--- OUTSIDE RECORDS SUMMARY | 2024-04-20 13:26 | XMS_ITS | Patient Health Record ---
Author Organization [facility] Address [address] [place] [address] Care Team Providers Care Table Filler Name Role Phone Lary Lee MD Primary Care Provider Arun Licona Jr Unavailable [phone] ALLERGIES Allergen (clinical drug ingredient) Drug/Non Drug [...] Problem Colon cancer screening (Z12.11) Active confirmed 225491745 Problem Encounter for other preprocedural examination (Z01.818) Active confirmed [id number] Problem Long-term use of aspirin therapy (Z79.82) Active confirmed [id number] VITAL SIGNS Blood pressure diastolic 00 mm Hg 01/14/2024 Height 73 in 01/14/2024 Blood pressure systolic 00 mm Hg 01/14/2024 Weight 180 lbs 01/14/2024 BMI 23.75 kg/m2 01/14/2024 Encounters Encounter Location Date Provider Diagnosis [facility] [place] [address] [place] [phone] 02/16/2024 Arun Persaud Jr [facility] Out[place] [address] [place] [phone] 03/15/2024 Arun Persaud Jr Colon cancer screening Z12.11 [facility] [address] [place] [phone] 01/14/2024 Arun Persaud Jr Colon cancer screening Z12.11 ; Encounter for other preprocedural examination Z01.818 and Long-term use of aspirin therapy Z79.82 [facility] [address] [place] [phone] 02/11/2024 Arun Persaud Jr ASSESSMENTS Encounter Date Diagnosis Assessment Notes Treatment Notes Treatment Clinical Notes 03/15/2024 Colon cancer screening (ICD-10 - Z12.11) 01/14/2024 Colon cancer screening (ICD-10 - Z12.11) Colonoscopy material was printed 01/14/2024 Encounter for other preprocedural examination (ICD-10 - Z01.818) 01/14/2024 Long-term use of aspirin therapy (ICD-10 - Z79.82) PLAN OF TREATMENT Future Test Test Name Order Date COLONOSCOPY 12/02/2018 COLONOSCOPY 01/14/2024 Insurance Providers Payer Name Payer Address Payer Phone Subscriber Number Group Number Insured Name Patient Relationship to Insured Coverage Start Date Coverage End Date [facility] [address] [place], [place] [id number] JAY THRASHER Self - patient is the insured MEDICAL (GENERAL) HISTORY Medical History History ICD Code Hyperlipidemia migraine headaches Coronary artery disease with stent place ment 05/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
== END 2024-04-20 13:50 | disposition home or self-care (01) ==
PROVIDERS: PCP Internal Medicine; Visit Provider Internal Medicine
DX: I25.10 Atherosclerotic heart disease of native coronary artery without angina pectoris (principal); E78.00 Pure hypercholesterolemia, unspecified; N40.1 Benign prostatic hyperplasia with lower urinary tract symptoms; R39.14 Feeling of incomplete bladder emptying; R97.20 Elevated prostate specific antigen [PSA]; R07.9 Chest pain, unspecified

== ENCOUNTER → 2024-04-20 11:33 | Outpatient (BNVA) | payer BC, SELFPAY | PROVIDERS: PCP Internal Medicine; Visit Provider Internal Medicine | DX: I25.10 Atherosclerotic heart disease of native coronary artery without angina pectoris (principal); E78.00 Pure hypercholesterolemia, unspecified; N40.1 Benign prostatic hyperplasia with lower urinary tract symptoms; R39.14 Feeling of incomplete bladder emptying; R97.20 Elevated prostate specific antigen [PSA]; R07.9 Chest pain, unspecified; Z79.82 Long term (current) use of aspirin | CPT/HCPCS: 96127 ==

== ENCOUNTER 2024-06-23 07:39 | Outpatient (REF) | payer BC, SELFPAY ==
--- OUTSIDE RECORDS SUMMARY | 2024-06-23 07:41 | XMS_ITS ---
Author Organization [facility] Address [address] [place] [phone] Care Team Providers Care Digital Media Analyst Name Role Phone Lary Lee MD Primary Care Provider Arun Licona Jr REASON FOR VISIT screening Encounters Encounter Location Date Provider Diagnosis [facility] Outpatient [address] [place], [place] [phone] 02/16/2024 Arun Persaud Jr Plan Of Treatment No Information Progress Notes * JAY KEYDOB:1970 (53 yo M)Acc No.[id number]:02/16/2024 COLON WITH MAC Patient:?JAY KEY Provider:?Arun Persaud MD :1970???Age:53 Y???Sex:Male Alden e:02/16/2024 Address:[address] [place], [place] [id number] Pcp:Lary Lee MD Subjective: * Chief Complaints: * ???1. Screening. * Medical History:? Objective: * Vitals:? Assessment: Plan: * Treatment: * * The named appointment provid er may or may not be the originator of this progress note, and it is not deemed complete until electronically signed by the appointment provider. Sign off status: Pending * Provider:?Arun Persaud MD Date:?1 04/18/2023 Generated for Jeffrey ng/Fabrockg/eTransmitting on:?06/23/2024 07:41 AM EDT
--- OUTSIDE RECORDS SUMMARY | 2024-06-23 07:41 | XMS_ITS ---
Author Organization [facility] Address [address] [place] [phone] Care Team Providers Care Signal Operator Name Role Phone Lary Lee MD Primary Care Provider Arun Licona Jr [phone] REASON FOR VISIT fax clearance note to sss Encounters Encounter Location Date Provider Diagnosis [facility] [address] [place] [phone] 02/11/2024 Arun Persaud Jr Plan Of Treatment No Information Progress Notes * JAY KEYDOB:1970 (53 yo M)Acc No.[id number]:02/11/2024 Patient:?JAY KEY :1970???Age:53 Y???Sex:Male Address: [place], [address] * true * Date:? Generated for Printi ng/Amig/eTransmitting on:?06/23/2024 07:41 AM EDT
--- OUTSIDE RECORDS SUMMARY | 2024-06-23 07:41 | XMS_ITS ---
Author Organization [facility] Address [address] [place] [phone] Care Team Providers Care Caustic Purification Operator Name Role Phone Lary Lee MD Primary Care Provider Arun Licona Jr [phone] REASON FOR VISIT SCREENING Encounters Encounter Location Date Provider Diagnosis [facility] Outpatient [address] [place] [phone] 03/15/2024 Arun Persaud Jr Colon cancer screening Z12.11 Assessments Encounter Date Diagnosis (ICD Code) Assessment Notes Treatment Notes Treatment Clinical Notes Section Notes 03/15/2024 Colon cancer screening (ICD-10 - Z12.11) Plan Of Treatment No Information Progress Notes * JAY KEYDOB:1970 (53 yo M)Acc No.[id number]:03/15/2024 COLON WITH MAC Patient:?JAY KEY Provider:?Arun Persaud MD :1970???Age:53 Y???Sex:Male Alden e:03/15/2024 Address:[address] [place], [place] [address] Pcp:Lary Lee MD Subjective: * Chief Complaints: * ???1. SCREENING. * Medical History:? Objective: * Vitals:? Assessment: * Assessment: 1.?Colon cancer screening - Z12.11 (Primary)??? Plan: * Treatment: * Procedure Codes:?22860 DIAGN OSTIC COLONOSCOPY, 0529F INTRVL 3+YRS PTS CLNSCP DOCD, 0528F RCMND FLW-UP 10 YRS DOCD * * The named appointment provid er may or may not be the originator of this progress note, and it is not deemed complete until electronically signed by the appointment provider. Sign off status: Pending * Provider:?Arun Persaud MD Date:?0 03/15/2024 Generated for Jeffrey jurado/Alejandra/Armida on:?06/23/2024 07:41 AM EDT
--- OUTSIDE RECORDS SUMMARY | 2024-06-23 07:42 | XMS_ITS | Patient Health Record ---
Author Organization [facility] Address [address] [place] [address] Care Team Providers Care Healthcare Financial Analyst Name Role Phone Lary Lee MD Primary Care Provider Anisa e Arun Persaud Jr Unavailable [phone] Allergies Allergen (clinical drug ingredient) Drug/Non Drug Allergy documented on EMR Reaction Allergy Type Onset Date Status metoprolol Metoprolol migraine Drug Allergy Activ e seasonal/ numerous allergies to enviroment (uncoded) Unknown Allergy Active Reason For Referral No Information Medications Medication SIG (Take, Route, Frequency, Duration) Notes [...] Subcutaneous for 84 Active Rizatriptan Benzoate Not-Taking Social History Tobacco Use: Social History Observation Description Date Details (start date - stop date) Never Smoker NA - NA Tobacco Use/Smoking Question Answer Notes Patient is [...] Never (0 point) Points 0 Interpretation Negative Problems Problem Type SNOMED Code ICD Code Onset Dates Problem Status W/U Status Risk Notes Problem 549736579 Colon cancer screening (Z12.11) Active confirmed Problem 142997267 Encounter for other preprocedural examination (Z01.818) Active confirmed Problem 816168101 Long-term use of aspirin therapy (Z79.82) Active confirmed Vital Signs Blood pressure diastolic 00 mm Hg 01/14/2024 Height 73 in 01/14/2024 Blood pressure systolic 00 mm Hg 01/14/2024 Weight 180 lbs 01/14/2024 BMI 23.75 kg/m2 01/14/2024 Encounters Encounter Location Date Provider Diagnosis [facility] [place] Outpatient [address] [place] [phone] 03/15/2024 Arun Persaud Jr Colon cancer screening Z12.11 [facility] [address] [place] [phone] 01/14/2024 Arun Persaud Jr Colon cancer screening Z12.11 ; Encounter for other preprocedural examination Z01.818 and Long-term use of aspirin therapy Z79.82 [facility] [address] [place] [phone] 02/11/2024 Arun Persaud Jr Assessments Encounter Date Diagnosis (ICD Code) Assessment Notes Treatment Notes Treatment Clinical Notes Section Notes 03/15/2024 Colon cancer screening (ICD-10 - Z12.11) 01/14/2024 Colon cancer screening (ICD-10 - Z12.11) Colonoscopy material was printed We discussed colonoscopy today. We discussed risks and benefits of the procedure today. He understands these and agrees to proceed. This will be arranged. He is advised to stop aspirin one week before the procedure. 01/14/2024 Encounter for other preprocedural examination (ICD-10 - Z01.818) We discussed colonoscopy today. We discussed risks and benefits of the procedure today. He understands these and agrees to proceed. This will be arranged. He is advised to stop aspirin one week before the procedure. 01/14/2024 Long-term use of aspirin therapy (ICD-10 - Z79.82) We discussed colonoscopy today. We discussed risks and benefits of the procedure today. He understands these and agrees to proceed. This will be arranged. He is advised to stop aspirin one week before the procedure. Plan Of Treatment Future Test Test Name Order Date COLONOSCOPY 12/02/2018 COLONOSCOPY 01/14/2024 Insurance Providers Payer Name Payer Address Payer Phone Subscriber Number Group Number Insured Name Patient Relationship to Insured Coverage Start Date Coverage End Date [facility] [address] [place], [place] [id number] [phone] [id number] JAY THRASHER Self - patient is the insured Medical (General) History Medical History History ICD Code Hyperlipidemia migraine headaches Coronary artery disease with stent place ment 05/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
[2024-06-23 09:31] LABS: PSA,Total (Free>4and<10) 3.78 ng/mL (0.00-4.00)
== END 2024-06-23 07:40 | disposition home or self-care (01) ==
LOC: HO.LAB 07:39
PROVIDERS: PCP Internal Medicine; Visit Provider Internal Medicine
DX: Z12.5 Encounter for screening for malignant neoplasm of prostate (principal); R97.20 Elevated prostate specific antigen [PSA]
CPT/HCPCS: 36415; 84153

== ENCOUNTER 2024-06-29 10:50 | Outpatient (AMB) | payer BC, SELFPAY ==
[2024-06-29 10:56] VITALS: BP 128/78; PULSE 77; O2SAT 97; BMI 24.4
--- NOTE | 2024-06-29 10:56 | MHC.PC.OV ---
Vital Signs 06/29/24 10:56 Height 6 ft 1 in Weight 185 lb BMI 24.4 BP 128/78 Blood Pressure Location Lt brachial Position Sitting Pulse 77 Pulse Source Pulse Oximeter Pulse Oximetry (%) 97 Oxygen Delivery Method Room Air Intake Visit Reasons: 6 month f/u Allergies metoprolol Adverse Reaction (Severe, Verified 06/29/24 10:56) Migraine ezetimibe [From Zetia] Adverse Reaction (Mild, Verified 06/29/24 10:56) abd pain Tobacco use date assessed: 04/20/24 Dental Screening Dental Screen Date: 04/20/24 [facility] Medical History (Updated 04/20/24 @ 12:29 by Lary Lee MD) Tubular adenoma of colon Crescendo angina Frozen shoulder Hyperlipidemia CAD (coronary artery disease) Pseudoaneurysm Cervical spinal stenosis Hypercholesterolemia Schatzki's ring Cyst of left kidney Adhesive capsulitis of left shoulder Migraine Surgical History H/O colonoscopy Stented coronary artery S/P cardiac cath S/P shoulder surgery Family History Father Heart disease Renal cell cancer Prostate cancer Mother Hypertension Maternal Aunt Breast cancer Maternal Uncle Prostate cancer Heart disease Maternal Uncle Heart disease Brother Alcohol abuse Mental health disorder Social History Housing: House Alcohol intake: current Alcohol intake frequency: holidays/special occasions only Alcohol type: beer Comment: 2 days weekend 2-3 beers Patient Tobacco Use Status: Never used Tobacco Tobacco use type: Cigarette e-Cigarette/Vaping Use: Never Used Second Hand Smoke Exposure: No service: No Current occupational status: employed 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 Jacek Starkey, Sanna Caro, Efrain Bradley and colleagues, with an educational brayden from [employer] Physical exam (Primary Care) Vital Signs: Last Vital Signs Pulse 77 06/29/24 10:56 BP 128/78 06/29/24 10:56 Pulse Ox 97 06/29/24 10:56 Oxygen Delivery Method Room Air 06/29/24 10:56 BMI result Body Mass Index 24.4 Tobacco/Smoking Status: Tobacco use Status Tobacco use date assessed 04/20/24 06/29/24 11:01 Patient Tobacco Use Status Never used Tobacco 06/29/24 11:01 Tobacco use type Cigarette 06/29/24 11:01 e-Cigarette/Vaping Use Never Used 06/29/24 11:01 Thrive Assessment: Date of Thrive Assessment Date Thrive assessed 04/20/24 06/29/24 11:01 Const General: alert; No acute distress Eyes Conjunctivae: conjunctivae normal Resp Auscultation: clear to auscultation bilaterally Cardio Rate: regular rate Rhythm: regular rhythm GI Inspection: Yes normal to inspection Extrem General: Yes normal to inspection and No edema Coding Level of Care Code Est Pt Level 4 (29680) Diagnoses Elevated PSA R97.20 Hypercholesterolemia E78.00 Migraine G43.909 Coronary artery disease involving yuhaaviatam coronary artery of yuhaaviatam heart without angina pectoris I25.10 Associated angina: without angina Coronary Disease-Associated Artery/Lesion type: yuhaaviatam artery [place] vs. transplanted heart: yuhaaviatam heart Benign prostatic hyperplasia with incomplete bladder emptying N40.1; R39.14 Lower urinary tract symptom detail: incomplete bladder emptying Lower urinary tract symptom presence: symptoms present Assessment & Plan Assessment & Plan (1) Elevated PSA: Code(s): R97.20 - Elevated prostate specific antigen [PSA] Category: Medical Plan: Continuing to monitor (2) Hypercholesterolemia: Code(s): E78.00 - Pure hypercholesterolemia, unspecified Category: Medical Plan: Avoid fried foods, chicken skin, eggs, butter margarine, pastries and meat. Be it pork or beef they have a lot of cholesterol on Repatha (3) Migraine: Code(s): G43.909 - Migraine, unspecified, not intractable, without status migrainosus Category: Medical Plan: Patient is advised to eat healthy, keep well hydrated, keep active and have adequate sleep. Takes rizatriptan as needed and Topamax (4) CAD (coronary artery disease): Comment: Circumflex artery, was stented with drug-eluting stent. Moderate disease in proximal LAD 05/2022 Dr. Dupree Code(s): I25.10 - Atherosclerotic heart disease of yuhaaviatam coronary artery without angina pectoris Category: Medical Qualifiers: Associated angina: without angina Coronary Disease-Associated Artery/Lesion type: yuhaaviatam artery [place] vs. transplanted heart: yuhaaviatam heart Qualified Code(s): I25.10 - Atherosclerotic heart disease of yuhaaviatam coronary artery without angina pectoris Plan: Control the cholesterol, weight, blood pressure, continue with aspirin stable (5) BPH (benign prostatic hyperplasia): Code(s): N40.0 - Benign prostatic hyperplasia without lower urinary tract symptoms Category: Medical Qualifiers: Lower urinary tract symptom detail: incomplete bladder emptying Lower urinary tract symptom presence: symptoms present Qualified Code(s): N40.1 - Benign prostatic hyperplasia with lower urinary tract symptoms; R39.14 - Feeling of incomplete bladder emptying Plan History of Present Illness The patient is a 53-year-old male presenting for follow-up regarding chronic health conditions, including hypercholesterolemia, migraines, coronary artery disease, benign prostatic hyperplasia, and low back pain. The patient has been adhering to Repatha therapy for lipid management, with lipid levels continuing to be well controlled. Past blood work indicated elevated liver function tests. Prostate health was evaluated with a recent improvement in PSA levels upon retesting. The patient manages migraines with Risatriptan and Topamax, with no recent report of severe episodes. Concerns of neck-related discomfort affecting arm strength and function were discussed, possibly attributing to disc degeneration or stenosis. The patient maintains a physically active lifestyle, engaging in consistent daily walking, and has participated in recreational running activities. Health Maintenance - Monitoring of hypercholesterolemia levels with Repatha. - Normal blood sugar levels maintained. - Regular follow-up on PSA levels to assess BPH progression. - Encouragement of routine physical activity to support cardiovascular health. - Discussion on avoiding strenuous exercise to prevent spiking PSA levels before repeat testing. Social History - Engages in regular physical activity with long daily walks and occasional races. - Performs routine workouts on an [employer] machine. - Maintains an active social lifestyle with a girlfriend. Review of Systems - Cardiovascular: Denies recent cough or cardiac symptoms, reports stable heart health. - Genitourinary: Denies any urinary difficulties or frequent urination. - Musculoskeletal: Reports neck and arm complaints, with concerns for disc issues or stenosis. Physical Exam Results - Labs: Elevated liver function tests on April 08; Cholesterol levels within desired range. - Tests: PSA elevated to 4.67 in March, subsequently improved to 3.78. Plan Continued Repatha therapy is advised for hypercholesterolemia management, given its significant benefit on lipid levels, especially due to his coronary artery disease. Routine liver function monitoring is warranted due to past abnormalities. I plan to monitor for benign prostatic hyperplasia progressions with follow-up on PSA in six months. Additionally, I recommend conservative management for musculoskeletal symptoms, suggestive of possible disc issues, by moderating physical strain. Patient was informed and verbally consented to the use of an ambient scribe for clinic note documentation during this visit. Discussion Notes I discussed with the patient the ongoing management plan for his chronic conditions, emphasizing the importance of staying on Repatha to control hypercholesterolemia effectively. We reviewed the potential impact of physical activities on PSA levels and scheduled a follow-up test in six months with necessary precautions. I reassured the patient regarding his prostate health, underscoring our periodic monitoring. Discussion on musculoskeletal complaints noted a possible association with prior exercise choices. Lastly, we reviewed the importance of reporting any new symptoms promptly and reassured ongoing support in managing his health conditions. Patient Instructions - Continue taking Repatha as prescribed. - Avoid biking or heavy exercise three days before your next PSA test. - Report any new or worsening neck or arm pain promptly. - Monitor daily activities, ensuring you are not overexerting yourself. - Return in six months for a follow-up PSA test. - Call the office if you have any questions or notice changes in your condition. Orders: Orders PSA,Total (Free>4and<10) 5 Months R97.20 - Elevated prostate specific antigen [PSA] Comprehensive Met. Panel 5 Months R97.20 - Elevated prostate specific antigen [PSA] Thyroid Stimulating Hormone 5 Months R97.20 - Elevated prostate specific antigen [PSA] Vitamin B12 and Folate 5 Months R97.20 - Elevated prostate specific antigen [PSA] Complete Blood Count Auto Diff 5 Months R97.20 - Elevated prostate specific antigen [PSA] Free T4 (Free Thyroxine) 5 Months R97.20 - Elevated prostate specific antigen [PSA] Lipid Panel 5 Months E78.00 - Pure hypercholesterolemia, unspecified, R97.20 - Elevated prostate specific antigen [PSA]
--- OUTSIDE RECORDS SUMMARY | 2024-06-29 12:57 | XMS_ITS | Patient Health Record ---
Author Organization [facility] Address [address] [place] [address] Care Team Providers Care Manager Lpn Name Role Phone Lary Lee MD Primary Care Provider Anisa e Arun Persaud Jr Unavailable Allergies Allergen (clinical drug ingredient) Drug/Non Drug [...] Problem Status W/U Status Risk Notes Problem [id number] Colon cancer screening (Z12.11) Active confirmed Problem 685254807 Encounter for other preprocedural examination (Z01.818) Active confirmed Problem 046612125 Long-term use of aspirin therapy (Z79.82) Active confirmed Vital Signs Blood pressure diastolic 00 mm Hg 01/14/2024 Height 73 in 01/14/2024 Blood pressure systolic 00 mm Hg 01/14/2024 Weight 180 lbs 01/14/2024 BMI 23.75 kg/m2 01/14/2024 Encounters Encounter Location Date Provider Diagnosis [facility] [place] [facility] Outpatient [address] [place] [phone] 03/15/2024 Arun Persaud Jr Colon cancer screening Z12.11 [facility] [address] [place] [phone] 01/14/2024 Arun Persaud Jr Colon cancer screening Z12.11 ; Encounter for other preprocedural examination Z01.818 and Long-term use of aspirin therapy Z79.82 [facility] [address] [place] [phone] 02/11/2024 Arun Persaud Jr Assessments Encounter Date [...] Insured Coverage Start Date Coverage End Date [facility] [address] [place], [place] [id number] AJY THRASHER Self - patient is the insured Medical (General) History Medical History History ICD Code Hyperlipidemia migraine headaches Coronary artery disease with stent place ment 05/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
--- OUTSIDE RECORDS SUMMARY | 2024-06-29 12:57 | XMS_ITS ---
Author Organization [facility] Address [address] [place] [phone] Care Team Providers Care Asset Specialist Name Role Phone Lary Lee MD Primary Care Provider Arun Licona Jr [phone] REASON FOR VISIT fax clearance note to sss Encounters Encounter Location Date Provider Diagnosis [facility] [address] [place] [phone] 02/11/2024 Arun Persaud Jr Plan Of Treatment No Information Progress Notes * JAY KEYDOB:1970 (53 yo M)Acc No.[id number]:02/11/2024 Patient:?JAY KEY :1970???Age:53 Y???Sex:Male Address: [place], [address] * true * Date:? Generated for Printi ng/Amig/eTransmitting on:?06/29/2024 12:57 PM EDT
--- OUTSIDE RECORDS SUMMARY | 2024-06-29 12:57 | XMS_ITS ---
Author Organization [facility] Address [address] [place] [phone] Care Team Providers Care Design Teacher Name Role Phone Lary Lee MD Primary Care Provider Arun Licona Jr REASON FOR VISIT screening Encounters Encounter Location Date Provider Diagnosis [facility] [place] [address] [place], [place] [phone] 02/16/2024 Arun Persaud Jr Plan Of Treatment No Information Progress Notes * JAY KEYDOB:1970 (53 yo M)Acc No.[id number]:02/16/2024 COLON WITH MAC Patient:?JAY KEY Provider:?Arun Persaud MD :1970???Age:53 Y???Sex:Male Alden e:02/16/2024 Address:[address] [place], [place] [address] Pcp:Lary Lee MD Subjective: * Chief Complaints: * ???1. Screening. * Medical History:? Objective: * Vitals:? Assessment: Plan: * Treatment: * * The named appointment provid er may or may not be the originator of this progress note, and it is not deemed complete until electronically signed by the appointment provider. Sign off status: Pending * Provider:?Arun Persaud MD Date:?1 04/18/2023 Generated for Donnai ng/Faxing/eTransmitting on:?06/29/2024 12:57 PM EDT
--- OUTSIDE RECORDS SUMMARY | 2024-06-29 12:57 | XMS_ITS ---
Author Organization [facility] Address [address] [place] [phone] Care Team Providers Care State Epidemiologist Name Role Phone Lary Lee MD Primary Care Provider Arun Licona Jr REASON FOR VISIT SCREENING Encounters Encounter Location Date Provider Diagnosis [facility] [place] [address] [place] [phone] 03/15/2024 Arun Persaud Jr Colon cancer screening Z12.11 Assessments Encounter Date Diagnosis (ICD Code) Assessment Notes Treatment Notes Treatment Clinical Notes Section Notes 03/15/2024 Colon cancer screening (ICD-10 - Z12.11) Plan Of Treatment No Information Progress Notes * JAY KEYDOB:1970 (53 yo M)Acc No.[id number]:03/15/2024 COLON WITH MAC Patient:?JAY KEY Provider:?Arun Persaud MD :1970???Age:53 Y???Sex:Male Alden e:03/15/2024 Address:[address] [place], [place] [address] Pcp:Lary Lee MD Subjective: * Chief Complaints: * ???1. SCREENING. * Medical History:? Objective: * Vitals:? Assessment: * Assessment: 1.?Colon cancer screening - Z12.11 (Primary)??? Plan: * Treatment: * Procedure Codes:?67006 DIAGN OSTIC COLONOSCOPY, 0529F INTRVL 3+YRS PTS CLNSCP DOCD, 0528F RCMND FLW-UP 10 YRS DOCD * * The named appointment provid er may or may not be the originator of this progress note, and it is not deemed complete until electronically signed by the appointment provider. Sign off status: Pending * Provider:?Arun Persaud MD Date:?0 03/15/2024 Generated for Jeffrey jurado/Alejandra/Armida on:?06/29/2024 12:57 PM EDT
== END 2024-06-29 13:16 | disposition home or self-care (01) ==
LOC: HO.HMCH 10:50
PROVIDERS: PCP Internal Medicine; Visit Provider Internal Medicine
DX: R97.20 Elevated prostate specific antigen [PSA] (principal); E78.00 Pure hypercholesterolemia, unspecified; G43.909 Migraine, unspecified, not intractable, without status migrainosus; I25.10 Atherosclerotic heart disease of native coronary artery without angina pectoris; N40.1 Benign prostatic hyperplasia with lower urinary tract symptoms; R39.14 Feeling of incomplete bladder emptying

== ENCOUNTER → 2024-06-29 10:50 | Outpatient (BNVA) | payer BC, SELFPAY | PROVIDERS: PCP Internal Medicine; Visit Provider Internal Medicine | DX: Z13.89 Encounter for screening for other disorder (principal) ==

== ENCOUNTER 2024-11-28 13:23 | Outpatient (AMB) | payer BC, SELFPAY ==
--- OUTSIDE RECORDS SUMMARY | 2024-02-16 05:10 | XMS_ITS ---
Demographics Address [address] [place] [id number]
--- NOTE | 2024-11-28 13:27 | MHC.OFFVIS ---
Intake Visit Reasons: 3 month follow up Allergies metoprolol Adverse Reaction (Severe, Verified 11/28/24 13:33) Migraine ezetimibe (From Zetia) Adverse Reaction (Mild, Verified 11/28/24 13:33) abd pain Medication List - Last Reconciled 11/28/24 by Paris Merida CNP aspirin 81 mg PO DAILY cyclobenzaprine 10 mg PO BEDTIME PRN diclofenac sodium 75 mg PO BID evolocumab (Brian Bravo) 140 mg subcut Q2W ondansetron 8 mg PO Q8H rizatriptan 10 mg PO BID PRN MDD 20mg rosuvastatin 20 mg PO DAILY topiramate 50 mg orally 1 tablet in the morning and 2 tablets at bedtime; HPI Comments Details: He had 3 bad migraines in last 5 months with nausea and vomiting. Most recent was few weeks ago. He tried ibuprofen first, but it did not help and then took rizatriptan few hours later which took a while for relief. Triggers include storms and changes in weather. Saw chiropractor a few months ago and had XR of spine at [facility], was told he has arthritis. Arms and legs still feel weak at times. Was working up to 65 hours/week this summer, golfing. No falls. Sleep was okay. Generally wakes with migraine and stiff neck. No auras, which have included right sided weakness in the past. Previous auras lasting about 25 min. Migraine triggers include heat/humidity, sun, allergies/pollen, oreos, some chocolates, and lack of sleep. No further dizzy spells since stent placed 05/19/[address] Sheppard. Getting some neck pain with pain some times going down right arm. Also having some lower back pain. He has a history of migraines without aura. Had chest and neck tightness with the Sumatriptan injection and was very uncomfortable for 20 minutes. Has a frozen shoulder and degenerative disc disease. [facility] Medical History (Updated 11/28/24 @ 13:31 by Paris Merida CNP) Cervical spondylosis with radiculopathy Tension headache Tubular adenoma of colon Crescendo angina Frozen shoulder Hyperlipidemia CAD (coronary artery disease) Pseudoaneurysm Cervical spinal stenosis Hypercholesterolemia Schatzki's ring Cyst of left kidney Adhesive capsulitis of left shoulder Migraine Surgical History H/O colonoscopy Stented coronary artery S/P cardiac cath S/P shoulder surgery Family History (Updated 11/28/24 @ 13:53 by Paris Merida CNP) Father Heart disease Renal cell cancer Prostate cancer Migraine Mother Hypertension Migraine Maternal Aunt Breast cancer Maternal Uncle Prostate cancer Heart disease Maternal Uncle Heart disease Brother Alcohol abuse Mental health disorder Social History Housing: House Alcohol intake: current Alcohol intake frequency: holidays/special occasions only Alcohol type: beer Comment: 2 days weekend 2-3 beers Patient Tobacco Use Status: Never used Tobacco Tobacco use type: Cigarette e-Cigarette/Vaping Use: Never Used Second Hand Smoke Exposure: No service: No Current occupational status: employed 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 Current occupational exposures/hazards: No Cognitive needs: No Hearing needs: No Vision needs: No Review of Systems Const Denies chills, Denies daytime sleepiness, Denies difficulty sleeping, Denies fatigue, Denies fever(s), Denies frequent falls, Reports headache(s), Denies increased appetite, Denies poor appetite, Denies snoring, Denies weakness, Denies weight gain and Denies weight loss Eyes Denies loss of vision ENT Denies vertigo, Denies dizziness, Reports headache(s) and Reports neck pain Card Denies chest pain at rest, Denies chest pain with activity, Denies syncope, Denies leg edema, Denies palpitations, Denies dyspnea and Denies dyspnea on exertion Resp Denies cough, Denies dyspnea, Denies dyspnea on exertion and Denies snoring GI Denies abdominal pain, Denies constipation, Denies heartburn, Denies diarrhea and Denies nausea Denies urinary frequency, Denies urinary incontinence and Denies urinary urgency Musc Denies abnormal gait, Denies back pain, Denies myalgias, Denies arthralgias, Reports neck pain, Denies numbness and Denies tingling Neuro Denies abnormal gait, Denies vertigo, Denies dizziness, Denies syncope, Denies frequent falls, Reports headache(s), Denies lack of coordination, Denies loss of vision, Denies memory loss, Denies numbness, Denies Other visual disturbances, Denies restless legs, Denies seizure-like activity, Denies tingling, Denies paresthesias, Denies tremor(s) and Denies weakness Psych Denies anxiety, Denies depression, Denies auditory hallucinations, Denies memory loss and Denies visual hallucinations Endo Denies fatigue and Denies palpitations Physical Exam Const Other: General Appearance:? normal, in no acute distress. Heart:? S1, S2 normal, no murmurs. Lungs:? clear anteriorly and posteriorly. Musculoskeletal:? normal. Extremities:? no edema. Psych:? alert, oriented, cognitive function intact, cooperative with exam. Neuro Other: Abnormal Neurological Findings:?5-/5 finger spread. Mental Status: alert and oriented X 3. Normal attention, orientation, memory, and affect. Cranial Nerves: Pupils are equal, round, and reactive to light. External ocular muscles are intact. Visual de guzman are full, no ptosis. Face is symmetrical, no facial weakness or droop. Facial sensations are normal. Tongue protrudes in midline. Palate elevates symmetrically. Shoulder shrugging is normal Motor Examination: As above, otherwise normal muscle tone, bulk and strength. No atrophy or fasciculations. No drift of the extended upper extremities. DTR 2+. Plantars are flexor. Sensory Exam: Normal light touch, temperature, pinprick, vibration, and joint-position sensations. Rhomberg sign is absent. Coordination: No ataxia. No titubation. Gait Exam: Within normal limits. Cerebellar Signs: [id number] is okay. Extrapyramidal System: No tremor, rigidity with normal facial expressions. No bradykinesia. No bradyphrenia. Normal arm swing and posture. No propulsion or retropulsion. Speech: Normal. Results Reviewed Results Reviewed: MRI C-spine 06/19/2023: Multilevel degenerative changes. Moderate neuroforamina stenosis on the right at C4-C5. No severe spinal canal stenosis or neuroforamina stenosis Assessment & Plan Assessment & Plan (1) Migraine: Code(s): G43.909 - Migraine, unspecified, not intractable, without status migrainosus Category: Medical Qualifiers: Migraine type: unspecified Status migrainosus presence: without status migrainosus Intractability: not intractable Qualified Code(s): G43.909 - Migraine, unspecified, not intractable, without status migrainosus Plan: Continue topiramate 50mg 1 tablet in the morning and 2 tablets at bedtime. Continue rizatriptan 10mg 1 tablet as needed for migraine. May take rizatriptan with 1 Aleve or Excedrin and cup of coffee or tea. Continue ondansetron 8mg 1 tablet as needed for nausea/vomiting. (2) Cervical spinal stenosis: Code(s): M48.02 - Spinal stenosis, cervical region Category: Medical Plan: Continue cyclobenzaprine 10mg 1 tablet at bedtime as needed for muscle spasm/pain. Continue diclofenac sodium 75mg 1 tablet with food twice a day as needed for pain. He had spinal XRs at [facility] in [place], will request report. Medications: New ondansetron 8 mg PO DAILY PRN 10 tabs 5RF nausea and vomiting 30 days rizatriptan take 1 tab at onset of headache; if no relief may repeat 1 tab after at least 4 hrs; max = 2 tabs/24 hr PO 10 tabs 5RF 30 days Discontinued rizatriptan Discontinued Reason: Order 10 mg PO BID PRN Migraine Headache MDD 20mg ondansetron Discontinued Reason: Order 8 mg PO Q8H Coding Level of Care Code Est Pt Level 4 (35749) Diagnoses Migraine without status migrainosus, not intractable, unspecified migraine type G43.909 Migraine type: unspecified Status migrainosus presence: without status migrainosus Intractability: not intractable Cervical spinal stenosis M48.02
== END 2024-11-28 13:48 | disposition home or self-care (01) ==
LOC: HO.HSM 13:24
PROVIDERS: PCP Internal Medicine; Visit Provider Registered Nurse
DX: G43.909 Migraine, unspecified, not intractable, without status migrainosus (principal); M48.02 Spinal stenosis, cervical region
CPT/HCPCS: 99214

== ENCOUNTER 2024-12-26 08:12 | Outpatient (REF) | payer BC, SELFPAY ==
--- OUTSIDE RECORDS SUMMARY | 2024-02-16 05:10 | XMS_ITS ---
Author Organization [facility] Address [address] [place] [phone] Care Team Providers Care Trackwalker Name Role Phone Lary Lee MD Primary Care Provider Arun Licona Jr [phone] REASON FOR VISIT screening Encounters Encounter Location Date Provider Diagnosis [facility] Outpatient [address] [place] [phone] 02/16/2024 Arun Persaud Jr Plan Of Treatment No Information Progress Notes * YESI JAYDOB:1970 (54 yo M)Acc No.[id number]:02/16/2024 COLON WITH MAC Patient: JAY DON Provider: Della Persaud MD :1970 A ge:53 Y S ex:Male Date:02/16/2024 Address:[address] [place], [place] [address] Pcp:Lary Lee MD Subjective: * Chief Complaints: * 1 . Screening. * Medical History: Objective: * Vitals: Assessment: Plan: * Treatment: * * The named appointment provid er may or may not be the originator of this progress note, and it is not deemed complete until electronically signed by the appointment provider. Sign off status: Pending * Provider: Della Persaud MD Date: 04/18/2023 Generated for Jeffrey jurado/Alejandra/eTpolinasmitting on: 08:21 AM EDT
--- OUTSIDE RECORDS SUMMARY | 2024-03-15 07:50 | XMS_ITS ---
Author Organization [facility] Address [address] [place] [phone] Care Team Providers Care Building Repair Maintenance Supervisor Name Role Phone Lary Lee MD Primary Care Provider Arun Licona Jr Unavailable [phone] REASON FOR VISIT SCREENING Encounters Encounter Location Date Provider Diagnosis [facility] [place] [address] [place] [phone] 03/15/2024 Arun Persaud Jr Colon cancer screening Z12.11 Assessments Encounter Date Diagnosis (ICD Code) Assessment Notes Treatment Notes Treatment Clinical Notes Section Notes 03/15/2024 Colon cancer screening (ICD-10 - Z12.11) Plan Of Treatment No Information Progress Notes * YESI JAYDOB:1970 (54 yo M)Acc No.[id number]:03/15/2024 COLON WITH MAC Patient: JAY DON Provider: Della Persaud MD :1970 A ge:53 Y S ex:Male Date:03/15/2024 [facility] Pcp:Lary Lee MD Subjective: * Chief Complaints: [...] 0 03/15/2024 Generated for Jeffrey jurado/Alejandra/Armida on: 08:21 AM EDT
--- OUTSIDE RECORDS SUMMARY | 2024-12-26 08:22 | XMS_ITS | Patient Health Record ---
Author Organization [facility] Address [address] [place] [address] Care Team Providers Care [employer] Product Consultant Name Role Phone Lary Lee MD Primary Care Provider Arun Licona Jr Unavailable Allergies Allergen (clinical drug ingredient) [...] 50 MG 1 tablet Orally Once a day; Duration: 30 day(s) Active Repatha SureClick 140 MG/ML INJECT 140 MG SUBCUTANEOUSLY EVERY 2 WEEKS Subcutaneous; Duration: 84 Active Rizatriptan Benzoate Not-Taking Social History [...] Problem Status W/U Status Risk Notes Problem Colon cancer screening (601820744) Colon cancer screening (Z12.11) Active confirmed Problem Pre-procedure evaluation check (004940357) Encounter for other preprocedural examination (Z01.818) Active confirmed Problem Long-term current use of antiplatelet drug ([id number] ) Long-term use of aspirin therapy (Z79.82) Active confirmed Vital Signs Blood pressure diastolic 00 mm Hg 01/14/2024 Height 73 in 01/14/2024 Blood pressure systolic 00 mm Hg 01/14/2024 Weight 180 lbs 01/14/2024 BMI 23.75 kg/m2 01/14/2024 Encounters Encounter Location Date Provider Diagnosis [facility] Outpatient [address] [place] [id number] 03/15/2024 Arun Persaud Jr Colon cancer screening Z12.11 [facility] [address] [address] 01/14/2024 Arun Persaud Jr Colon cancer screening Z12.11 ; Encounter for other preprocedural examination Z01.818 and Long-term use of aspirin therapy Z79.82 [facility] [address] [address] 02/11/2024 Arun Persaud Jr Assessments Encounter Date [...] Insured Coverage Start Date Coverage End Date [facility] [address] [place], [place] [id number] JAY THRASHER Self - patient is the insured Medical (General) History Medical History History ICD Code Hyperlipidemia migraine headaches Coronary artery disease with stent place ment 05/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
[2024-12-26 08:23] LABS: MANUAL DIFF FLAG NO
[2024-12-26 08:54] LABS: Hematocrit 46.8 % (42.0-52.0); Hemoglobin 15.9 g/dl (14.0-18.0); Imm Gran Abs Auto 0.02 X10*3/uL (0.00-0.03); Imm Gran Pct Auto 0.3 % (0.0-0.4); Lymphocytes Absolute Auto 2.1 X10*3/uL (1.2-4.9); Mean Corpuscular HGB Conc 34.0 g/dl (31.0-36.0); Mean Corpuscular Hemoglobin 30.6 pg (27.0-33.0); Mean Corpuscular Volume 90.2 fL (80.0-98.0); NRBC Abs Auto 0.000 X10*3/uL (0.0-0.012); NRBC Pct Auto 0.0 /100WBC (0.0-0.2); Platelet Count 215 X10*3/uL (160-400); Red Blood Count 5.19 X10*6/uL (4.60-5.80); White Blood Count 5.7 X10*3/uL (4.8-10.8)
[2024-12-26 09:25] LABS: Alanine Aminotransferase 51 U/L (0-40); Albumin Level 4.1 g/dL (3.5-5.0); Alkaline Phosphatase 69 U/L (39-117); Anion Gap 11 (12-20); Aspartate Amino Transferase 30 U/L (5-37); Blood Urea Nitrogen 16 mg/dL (9-16); Calcium 8.7 mg/dL (8.4-10.2); Carbon Dioxide 21 mmol/L (22-29); Chloride 114 mmol/L (96-108); Cholesterol 95 mg/dL (<200); Estimated Glomerular Filt Rate > 60; HDL Cholesterol 58 mg/dL (>40); Potassium 4.4 mmol/L (3.3-5.1); Sodium 142 mmol/L (135-145); Total Protein 6.4 g/dL (6.5-8.0); Triglycerides 36 mg/dL (<150)
[2024-12-26 09:35] LABS: PSA,Total (Free>4and<10) 4.54 ng/mL (0.00-4.00)
[2024-12-26 09:43] LABS: Free T4 (Free Thyroxine) 0.86 ng/dL (0.71-1.85); Thyroid Stimulating Hormone 1.59 uIU/mL (0.32-4.0)
[2024-12-26 09:47] LABS: Folate 8.6 ng/mL (> or = 4.0); Vitamin B12 244 pg/mL (200-900)
[2024-12-28 22:19] LABS: Free Prostate Spec Ag 0.7 ng/mL; Percent Free Prostate Spec Ag 17 % (calc) (>25)
== END 2024-12-26 08:13 | disposition home or self-care (01) ==
LOC: HO.LAB 08:12
PROVIDERS: PCP Internal Medicine; Visit Provider Internal Medicine
DX: R97.20 Elevated prostate specific antigen [PSA] (principal); E78.00 Pure hypercholesterolemia, unspecified; Z12.5 Encounter for screening for malignant neoplasm of prostate
CPT/HCPCS: 36415; 80053; 80061; 82607; 82746; 84153; 84154; 84439; 84443; 85025

== ENCOUNTER 2025-01-02 12:17 | Outpatient (AMB) | payer BC, SELFPAY ==
--- OUTSIDE RECORDS SUMMARY | 2024-02-16 05:10 | XMS_ITS ---
Author Organization [facility] Address [address] [place] [phone] Care Team Providers Care Bow Rehairer Name Role Phone Lary Lee MD Primary Care Provider Arun Licona Jr REASON FOR VISIT screening Encounters Encounter Location Date Provider Diagnosis [facility] Outpatient [address] [place] [phone] 02/16/2024 Arun Persaud Jr Plan Of Treatment No Information Progress Notes * JAY KEYDOB:1970 (54 yo M)Acc No.[id number]:02/16/2024 COLON WITH MAC Patient: JAY DON Provider: Della Persaud MD :1970 A ge:53 Y S ex:Male Date:02/16/2024 Address:[address] [place], [place] [id number] Pcp:Lary Lee MD Subjective: * Chief Complaints: [...] Date: 04/18/2023 Generated for Jeffrey jurado/Alejandra/eTpolinasmitting on: 03:40 PM EDT
--- OUTSIDE RECORDS SUMMARY | 2024-03-15 07:50 | XMS_ITS ---
Author Organization [facility] Address [address] [place] [phone] Care Team Providers Care End Lathe Operator Name Role Phone Lary Lee MD Primary Care Provider Arun Licona Jr Unavailable REASON FOR VISIT SCREENING Encounters Encounter Location Date Provider Diagnosis [facility] [place] [address] [place] [phone] 03/15/2024 Arun Persaud Jr Colon cancer screening Z12.11 Assessments Encounter Date Diagnosis (ICD Code) Assessment Notes Treatment Notes Treatment Clinical Notes Section Notes 03/15/2024 Colon cancer screening (ICD-10 - Z12.11) Plan Of Treatment No Information Progress Notes * YESI JAYDOB:1970 (54 yo M)Acc No.[id number]:03/15/2024 COLON WITH MAC Patient: JAY DON Provider: Della Persaud MD :1970 A ge:53 Y S ex:Male Date:03/15/2024 [id number] Pcp:Lary Lee MD Subjective: * Chief Complaints: * 1 . SCREENING. * Medical History: Objective: * Vitals: Assessment: * Assessment: 1. C olon cancer screening - Z12.11 (Primary) Plan: * Treatment: * Procedure Codes: 4 5378 DIAGNOSTIC COLONOSCOPY, 0529F INTRVL 3+YRS PTS CLNSCP DOCD, 0528F RCMND FLW-UP 10 YRS DOCD * * The named appointment provid er may or may not be the originator of this progress note, and it is not deemed complete until electronically signed by the appointment provider. Sign off status: Pending * Provider: Della Persaud MD Date: 0 03/15/2024 Generated for Jeffrey jurado/Alejandra/Armida on: 03:40 PM EDT
[2025-01-02 12:28] VITALS: BP 134/88; PULSE 74; TEMP 36.3; O2SAT 98; BMI 25.5
--- NOTE | 2025-01-02 12:28 | MHC.PC.OV ---
Vital Signs 01/02/25 12:28 Height 6 ft 1 in Weight 193 lb BMI 25.5 BP 134/88 Blood Pressure Location Lt brachial Position Sitting Pulse 74 Pulse Source Pulse Oximeter Temp 97.3 F Temp Source Temporal Artery Scan Pulse Oximetry (%) 98 Oxygen Delivery Method Room Air Intake Visit Reasons: annual Allergies metoprolol Adverse Reaction (Severe, Verified 01/02/25 12:31) Migraine ezetimibe (From Zetia) Adverse Reaction (Mild, Verified 01/02/25 12:31) abd pain Medication List - Last Reconciled 01/02/25 by Lary Lee MD aspirin 81 mg PO DAILY diclofenac sodium 75 mg PO BID evolocumab (Repatha SureClick) 140 mg subcut Q2W ondansetron 8 mg PO DAILY PRN 30 days rizatriptan take 1 tab at onset of headache; if no relief may repeat 1 tab after at least 4 hrs; max = 2 tabs/24 hr PO 30 days rosuvastatin 20 mg PO DAILY topiramate 50 mg orally 1 tablet in the morning and 2 tablets at bedtime; Tobacco use date assessed: 01/02/25 Dental Screening Dental Screen Date: 01/02/25 Did you have a dental visit in the last 12 months?: Yes Did you have a dental problem in the last 6 months where you did not have access to dental care?: No Was dental information given to patient?: Patient has dentist HPI annual HPI Details eye surgery 03/20/[address] [facility] Medical History (Updated 01/02/25 @ 12:31 by Lary Lee MD) Cervical spondylosis with radiculopathy Tension headache Tubular adenoma of colon Crescendo angina Frozen shoulder Hyperlipidemia CAD (coronary artery disease) Pseudoaneurysm Cervical spinal stenosis Hypercholesterolemia Schatzki's ring Cyst of left kidney Adhesive capsulitis of left shoulder Migraine Surgical History H/O colonoscopy Stented coronary artery S/P cardiac cath S/P shoulder surgery Family History (Updated 11/28/24 @ 13:53 by Paris Merida CNP) Father Heart disease Renal cell cancer Prostate cancer Migraine Mother Hypertension Migraine Maternal Aunt Breast cancer Maternal Uncle Prostate cancer Heart disease Maternal Uncle Heart disease Brother Alcohol abuse Mental health disorder Social History Housing: House Alcohol intake: current Alcohol intake frequency: holidays/special occasions only Alcohol type: beer Comment: 2 days weekend 2-3 beers Patient Tobacco Use Status: Never used Tobacco Tobacco use type: Cigarette e-Cigarette/Vaping Use: Never Used Second Hand Smoke Exposure: No service: No Current occupational status: employed 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 1. Little interest or pleasure in doing things: not at all 2. Feeling down, depressed, or hopeless: not at all 3. Trouble falling or staying asleep, or sleeping too much: not at all 4. Feeling tired or having little energy: not at all 5. Poor appetite or overeating: not at all 6. Feeling bad about yourself - or that you are a failure or have let yourself or your family down: not at all 7. Trouble concentrating on things, such as reading the newspaper or watching television: not at all 8. Moving or speaking so slowly that other people could have noticed. Or the opposite - being so fidgety or restless that you have been moving around a lot more than usual: not at all 9. Thoughts that you would be better off or of hurting yourself in some way: not at all Total score: 0 Depression Screening Interpretation: Negative Depression Screening Done: Yes Source: Developed by Drs. Jacek Starkey, Sanna Caro, Efrain Bradley and colleagues, with an educational brayden from [employer]. Thrive Questionnaire Date Thrive assessed: 01/02/25 I am a: Patient What is your living situation today?: I have a steady place to live Within the past 12 months, did the food you bought not last and you didn't have the money to get more?: Never true Within the past 12 months, did you worry whether your food would run out before you got money to buy more?: Never true Do you have trouble paying for medicines?: No Do you have trouble getting transportation to medical appointments?: No Do you have trouble paying your heating and electricity bill?: No Do you have trouble taking care of your child, family member or friend?: No Do you have trouble with day-to-day activities such as bathing, preparing meals, shopping, managing finances, etc.?: No Are you currently unemployed and looking for a job?: No Are you interested in more education?: No Currently or been in a relationship where the following occur: No concerns reported THRIVE Score: 0 AUDIT C Alcohol Use Questionnaire (AUDIT-C) 1. How often do you have a drink containing alcohol?: Monthly or less 2. How many drinks containing alcohol do you have on a typical day when you are drinking?: 1 or 2 3. How often do you have six or more drinks on one occasion?: Never Total Score: 1 CHANDRA-7 AMB Questionnaire CHANDRA-7 Date CHANDRA - 7 assessed: 04/20/24 Feeling nervous, anxious, or on edge: 0 = Not at all Not being able to stop or control worryin = Not at all Worrying too much about different things: 0 = Not at all Trouble relaxin = Not at all Being so restless that it is hard to sit still: 0 = Not at all Becoming easily annoyed or irritable: 0 = Not at all Feeling afraid as if something awful might happen: 0 = Not at all Total CHANDRA-7 score (0-4 normal; 5-9 mild; 10-14 moderate; 15-21 severe): 0 Source: Developed by Drs. Jacek Starkey, Sanna Caro, Efrain Bradley and colleagues, with an educational brayden from [employer]. Review of Systems Const Denies poor appetite and Denies weakness Eyes Denies no additional complaints ENT Reports Normal hearing present, Denies dizziness, Denies nasal congestion, Denies tinnitus and Denies sore throat Card Denies chest pain, Denies syncope, Denies rapid heart rate and Denies dyspnea Resp Denies cough and Denies dyspnea GI Denies change in stool character, Reports constipation, Denies diarrhea, Denies nausea and Denies vomiting Denies dysuria and Denies urinary frequency Neuro Reports Normal hearing present, Denies confusion, Denies dizziness, Denies syncope and Denies weakness Psych Denies confusion Physical exam (Primary Care) Tobacco/Smoking Status: Tobacco use Status Tobacco use date assessed 04/20/24 06/29/24 11:01 Patient Tobacco Use Status Never used Tobacco 06/29/24 11:01 Tobacco use type Cigarette 06/29/24 11:01 e-Cigarette/Vaping Use Never Used 06/29/24 11:01 Depression Screening Interpretation: Negative Thrive Assessment: Date of Thrive Assessment Date Thrive assessed 04/20/24 06/29/24 11:01 Currently or been in a relationship where the following occur: No concerns reported Const General: No confusion Orientation/consciousness: No confusion HENMT Head: Yes normocephalic Ears: external ears normal and TM's normal bilaterally Face and sinus: Yes normal facial exam Mouth: moist mucous membranes Throat: Yes tonsils normal Eyes Conjunctivae: conjunctivae normal Pupils: Equal, round and reactive pupils present and Pupil accommodation reflex normal Direct Ophthalmoscopy: normal light reflex Neck Neck: No lymphadenopathy Thyroid: Thyroid normal Chest Chest palpation & inspection: normal inspection of the chest Resp Effort & Inspection: normal respiratory effort and no audible wheezes Auscultation: clear to auscultation bilaterally, no crackles, no wheezes and lung sounds not diminished Cardio Rate: regular rate Rhythm: regular rhythm Peripheral pulses: radial pulses present and dorsalis pedis present GI Palpation (GI): no masses Auscultation: normal bowel sounds and normoactive bowel sounds Rectal Exam - Male: Yes deferred Skin General skin exam: no rashes or lesions noted Rashes: no rashes Neuro General: No confusion Cranial nerves: Yes Equal, round and reactive pupils present and Yes Normal hearing present Cognition (Neuro): normal cognition Gait exam (Neuro): Normal gait present Motor exam (neuro): 5/5 motor strength present throughout Deep tendon reflexes (DTR's): Right brachioradialis reflex intensity grade: 2+, Left brachioradialis reflex intensity grade: 2+, Right patellar reflex intensity grade: 2+ and Left patellar reflex intensity grade: 2+ Extrem General: No edema Coding Level of Care Code Est Pt Prev Care 40-64y(24645) Diagnoses Annual physical exam Z00.00 Coronary artery disease involving [place] coronary artery of [place] heart without angina pectoris I25.10 Coronary Disease-Associated Artery/Lesion type: [place] artery [place] vs. transplanted heart: [place] heart Associated angina: without angina Benign prostatic hyperplasia with incomplete bladder emptying N40.1; R39.14 Lower urinary tract symptom presence: symptoms present Lower urinary tract symptom detail: incomplete bladder emptying Elevated PSA R97.20 Migraine without status migrainosus, not intractable, unspecified migraine type G43.909 Migraine type: unspecified Status migrainosus presence: without status migrainosus Intractability: not intractable LFT elevation R79.89 Assessment & Plan Assessment & Plan (1) Annual physical exam: Code(s): Z00.00 - Encounter for general adult medical examination without abnormal findings Category: Medical Plan: Patient is advised to eat healthy, keep well hydrated, keep active and have adequate sleep. (2) CAD (coronary artery disease): Comment: Circumflex artery, was stented with drug-eluting stent. Moderate disease in proximal LAD 05/2022 Dr. Dupree Code(s): I25.10 - Atherosclerotic heart disease of [place] coronary artery without angina pectoris Category: Medical Qualifiers: Coronary Disease-Associated Artery/Lesion type: [place] artery [place] vs. transplanted heart: [place] heart Associated angina: without angina Qualified Code(s): I25.10 - Atherosclerotic heart disease of [place] coronary artery without angina pectoris Plan: Control the cholesterol, weight, blood pressure, diabetes (3) BPH (benign prostatic hyperplasia): Code(s): N40.0 - Benign prostatic hyperplasia without lower urinary tract symptoms Category: Medical Qualifiers: Lower urinary tract symptom presence: symptoms present Lower urinary tract symptom detail: incomplete bladder emptying Qualified Code(s): N40.1 - Benign prostatic hyperplasia with lower urinary tract symptoms; R39.14 - Feeling of incomplete bladder emptying Plan: Stable (4) Elevated PSA: Code(s): R97.20 - Elevated prostate specific antigen [PSA] Category: Medical Plan: Continue to monitor (5) Migraine: Code(s): G43.909 - Migraine, unspecified, not intractable, without status migrainosus Category: Medical Qualifiers: Migraine type: unspecified Status migrainosus presence: without status migrainosus Intractability: not intractable Qualified Code(s): G43.909 - Migraine, unspecified, not intractable, without status migrainosus Plan: Neurology follow-up on rizatriptan and Topamax (6) LFT elevation: Code(s): R79.89 - Other specified abnormal findings of blood chemistry Category: Medical Plan: Discussed with the patient the need to do an ultrasound of the abdomen Plan History of Present Illness The patient is a 54-year-old male presenting for a physical examination. His past medical history is significant for severe hypercholesterolemia, migraines, coronary artery disease, benign prostatic hyperplasia (BPH), and a right-sided inguinal hernia. He was last seen in June 2024 and underwent a colonoscopy in March 2024. The patient has a history of elevated PSA, which is being monitored. For his migraines, he is followed by neurology and takes topiramate and rizatriptan. He has a history of spinal stenosis and experiences constant soreness in his shoulders, neck, and down his spine, for which he takes diclofenac. He reports new onset wheezing over the last two weeks, which he attributes to seasonal fall allergies. The patient reports a history of a left frozen shoulder which was treated with manipulation. He has an upcoming cataract surgery scheduled for March 20. He is allergic to metoprolol and Zetia. Family history is significant for heart disease in his father and maternal uncles, as well as cancers including prostate and kidney cancer in his father, breast cancer in his aunt, and prostate cancer in another uncle. Health Maintenance The patient has received his flu shot and is up-to-date on his shingles vaccine. He is due for a tetanus shot, which will be addressed at the next visit. He has an upcoming cataract surgery on March 20. General wellness advice regarding hydration, healthy diet, and physical activity was provided. Social History - Alcohol Use: The patient reports drinking two beers on weekends and does not drink during the week. - Exercise: The patient attempts to work out with light weights and more repetitions but is limited by muscle soreness and an inability to lift weights overhead. - Employment: The patient's work is physically demanding, contributing to his chronic muscle soreness. Review of Systems - Constitutional: Denies fevers. - HEENT: Denies dizziness or problems with swallowing; hearing is okay. - Respiratory: Reports wheezing for the last two weeks, which he attributes to allergies; denies waking up short of breath. - Cardiovascular: Denies syncope. - Gastrointestinal: Reports nausea and vomiting only in association with migraines; denies heartburn and reports normal bowel movements. - Genitourinary: Reports nocturia once per night. - Musculoskeletal: Reports constant soreness in the shoulders, neck, and down the spine. - Neurological: Denies passing out. Physical Exam General: Cooperative, healthy appearing, comfortable, no acute distress and well developed Orientation: Patient oriented x3 Limitations: No limitations Head: Normal to inspection Ears: Hearing grossly normal bilaterally, but presence of earwax noted Nose: Normal external nose present Face and sinus: Normal facial exam Eyes: Appearance normal, both eyes and all related structures; scheduled for cataract surgery on March 20 Neck: Normal visual inspection and Yes full ROM Respiratory: Normal respiratory effort and able to speak in complete sentences. Clear to auscultation bilaterally; patient reports wheezing, likely allergy-related Cardiovascular: Regular rate and rhythm. Normal S1 and S2 GI: Normal to inspection. Soft to palpation and nontender Skin: No rashes or lesions noted Neuro: Patient oriented x3 Extremities: Normal to inspection; reports soreness in shoulders, neck, and down the spine, likely due to repetitive movements and possible bicipital tendinitis in the right arm Results - Blood Count: Within normal limits, though eosinophils are elevated at 6.6; patient is not anemic, and platelet count is normal. - Comprehensive Metabolic Panel: Electrolytes, renal function, and blood sugar are normal. - Liver Function Tests: Elevated, which is a chronic finding. - Lipid Panel: LDL cholesterol is 30 mg/dL. - Prostate-Specific Antigen: 4.2, which is lower than the previous value of 4.5. - Vitamin B12: Low at 244. - Thyroid and Folic Acid: Within normal limits. Plan Patient was informed and verbally consented to the use of an ambient scribe for clinic note documentation during this visit. 1. Severe Hypercholesterolemia The patient's LDL cholesterol is well-controlled at 30 mg/dL. Continue current management with rosuvastatin and Repatha. 2. Elevated Liver Enzymes Lab results show elevated liver function tests, which is a chronic finding. An ultrasound of the liver has been ordered to further investigate the cause. It was discussed that medications could be a cause, but it is important to rule out other underlying pathology. 3. Migraine The patient is following up with neurology for migraine management. He will continue his current regimen of topiramate and rizatriptan. 4. Elevated Prostate-Specific Antigen The patient's PSA level has decreased from 4.5 to 4.2. As the level is trending down and the patient is asymptomatic, we will continue to monitor the PSA and recheck it in 6 months. A referral to urology is not indicated at this time. 5. Vitamin B12 Deficiency The patient's vitamin B12 level is low at 244. He has been advised to start an [id number]-qrunovm vitamin B12 supplement of 800-1000 mcg daily. 6. Seasonal Allergies With Wheezing The patient reports new onset wheezing for the past two weeks, likely secondary to seasonal allergies. Lab work shows an elevated eosinophil count, supporting an allergic component. A prescription for an inhaler has been sent to his pharmacy. 7. Musculoskeletal Pain The patient reports chronic muscle soreness in his neck, shoulders, and back, related to his physically demanding job. Physical exam is notable for right bicipital tendinitis. He may continue to use diclofenac for pain, ensuring he takes it with food. Discussion Notes I discussed the patient's lab results with him, noting his excellent LDL cholesterol of 30 and reassuring him about his PSA level, which has decreased to 4.2; we will recheck the PSA in six months. I informed him that his Vitamin B12 is low at 244 and recommended he start a daily nkgu-sre-hbqbfre supplement of 800-1000 mcg, explaining it is important for nerve health and blood production. We addressed the chronic elevation in his liver enzymes; I explained that while medications can cause this, we should investigate further, and I have ordered a liver ultrasound. I also discussed his recent onset of wheezing, which is likely allergy-related given his elevated eosinophils, and I have prescribed an inhaler for him. I informed him that his rectal exam was deferred due to his recent colonoscopy. Finally, we reviewed his vaccinations, noting he is due for a tetanus shot which we can address at his next visit. I provided general guidance on maintaining a healthy lifestyle through diet, hydration, and activity. Patient Instructions - An order for an ultrasound of your liver has been placed to investigate your elevated liver numbers; you will be contacted to schedule this appointment. - Please start taking an [id number] Vitamin B12 supplement, about 800-1000 mcg, once daily as your level is low. - A prescription for an inhaler has been sent to your pharmacy to help with your recent wheezing. - Continue taking all your current medications as prescribed. - A follow-up blood test to recheck your PSA and other levels will be needed in six months. - Continue to stay hydrated, eat a healthy diet, and engage in physical activity as you are able. Orders: Orders Comprehensive Met. Panel 6 Months R97.20 - Elevated prostate specific antigen [PSA] US abdomen complete Today R79.89 - Other specified abnormal findings of blood chemistry PSA,Total (Free>4and<10) 6 Months R97.20 - Elevated prostate specific antigen [PSA] Medications: New albuterol sulfate 90 mcg/actuation (Ventolin HFA) 2 puffs inhalation Q6H PRN 8.5 grams 0RF shortness of breath or wheezing
--- OUTSIDE RECORDS SUMMARY | 2025-01-02 15:41 | XMS_ITS | Patient Health Record ---
Author Organization [facility] Address [address] [place] [address] Care Team Providers Care Merchandising Execution Associate Name Role Phone Lary Lee MD Primary [...] Status Risk Notes Problem Colon cancer screening ([id number]) Colon cancer screening (Z12.11) Active confirmed Problem Pre-procedure evaluation check ([id number]) Encounter for other preprocedural examination (Z01.818) Active confirmed Problem Long-term current use of antiplatelet drug ([id number] ) Long-term use of aspirin therapy (Z79.82) Active confirmed Vital Signs Blood pressure diastolic 00 mm Hg 01/14/2024 Height 73 in 01/14/2024 Blood pressure systolic 00 mm Hg 01/14/2024 Weight 180 lbs 01/14/2024 BMI 23.75 kg/m2 01/14/2024 Encounters Encounter Location Date Provider Diagnosis [facility] [address] [place] [address] [id number] 03/15/2024 Arun Persaud Jr Colon cancer screening Z12.11 [facility] [address] [id number] 01/14/2024 Arun Persaud Jr Colon cancer screening Z12.11 ; Encounter for other preprocedural examination Z01.818 and Long-term use of aspirin therapy Z79.82 [facility] [address] [address] 02/11/2024 Arun Persaud Jr Assessments Encounter Date [...] Insured Coverage Start Date Coverage End Date [facility] [address] [place], [place] [id number] JAY THRASHER Self - patient is the insured Medical (General) History Medical History History ICD Code Hyperlipidemia migraine headaches Coronary artery disease with stent place ment 05/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
== END 2025-01-02 12:57 | disposition home or self-care (01) ==
LOC: HO.HMCH 12:19
PROVIDERS: PCP Internal Medicine; Visit Provider Internal Medicine
DX: Z00.00 Encounter for general adult medical examination without abnormal findings (principal); I25.10 Atherosclerotic heart disease of native coronary artery without angina pectoris; N40.1 Benign prostatic hyperplasia with lower urinary tract symptoms; R39.14 Feeling of incomplete bladder emptying; R97.20 Elevated prostate specific antigen [PSA]; G43.909 Migraine, unspecified, not intractable, without status migrainosus; R79.89 Other specified abnormal findings of blood chemistry

== ENCOUNTER 2025-02-17 15:22 | Outpatient (AMB) | payer BC, SELFPAY ==
--- OUTSIDE RECORDS SUMMARY | 2024-02-16 04:10 | XMS_ITS ---
Author Organization [facility] Address [address] [place] [phone] Care Team Providers Care Product Introduction Manager Name Role Phone Lary Lee MD Primary Care Provider Arun Licona Jr REASON FOR VISIT screening Encounters Encounter Location Date Provider Diagnosis [facility] Outpatient [address] [place] [phone] 02/16/2024 Arun Persaud Jr Plan Of Treatment No Information Progress Notes * JAY KEYDOB:1970 (54 yo M)Acc No.[id number]:02/16/2024 COLON WITH MAC Patient: JAY DON Provider: Della Persaud MD :1970 A ge:53 Y S ex:Male Date:02/16/2024 Address:[address] [place], [place] [id number] Pcp:Lary Lee MD Subjective: * Chief Complaints: * S creening * The named appointment provid er may or may not be the originator of this progress note, and it is not deemed complete until electronically signed by the appointment provider. Sign off status: Pending * Provider: Della Persaud MD Date: 04/18/2023 Generated for Jeffrey jurado/Alejandra/eTpolinasmitting on: 04/20/2024 08:14 PM EST
--- OUTSIDE RECORDS SUMMARY | 2024-03-15 06:50 | XMS_ITS ---
Author Organization [facility] Address [address] [place] [phone] Care Team Providers Care Fish Warden Name Role Phone Lary Lee MD Primary Care Provider Arun Licona Jr Unavailable REASON FOR VISIT SCREENING Encounters Encounter Location Date Provider Diagnosis [facility] [place] [address] [place] [id number] 03/15/2024 Arun Persaud Jr Colon cancer screening Z12.11 Assessments Encounter Date Diagnosis (ICD Code) Assessment Notes Treatment Notes Treatment Clinical Notes Section Notes 03/15/2024 Colon cancer screening (ICD-10 - Z12.11) Plan Of Treatment No Information Progress Notes * JAY KEYDOB:1970 (54 yo M)Acc No.[id number]:03/15/2024 COLON WITH MAC Patient: JAY DON Provider: Della Persaud MD :1970 A ge:53 Y S ex:Male Date:03/15/2024 Address: [id number] Pcp:Lary Lee MD Subjective: * Chief Complaints: * S CREENING Assessment: * Assessment: 1. C olon cancer screening - Z12.11 (Primary) Plan: * Procedure Codes: 4 5378 DIAGNOSTIC [id number] INTRVL 3+YRS PTS CLNSCP [id number] RCMND FLW-UP 10 YRS DOCD Billing Information: * Procedure Codes: 09004 DIAGNOSTIC COLONOSCOPY. 0529F INTRVL 3+YRS PTS CLNSCP DOCD. 0528F RCMND FLW-UP 10 YRS DOCD. * The named appointment provid er may or may not be the originator of this progress note, and it is not deemed complete until electronically signed by the appointment provider. Sign off status: Pending * Provider: Della Persaud MD Date: 0 03/15/2024 Generated for Jeffrey jurado/Alejandra/Armida on: 1 04/20/2024 08:14 PM EST
--- NOTE | 2025-02-17 15:35 | A.OFFPC_ITS ---
Vital Signs 02/17/25 15:37 Height 6 ft 1 in Weight 193 lb BMI 25.5 BP 110/72 Blood Pressure Location Lt brachial Position Sitting Pulse 74 Pulse Source Pulse Oximeter Temp 97.3 F Temp Source Temporal Artery Scan Pulse Oximetry (%) 97 Oxygen Delivery Method Room Air Intake Visit Reasons: [facility] 03/20/25 Intake Note: Patient is here for a Pre-op for Right eye Cataract scheduled with [facility] on 03/20/25. Label Fuser Tender Required: No Fresh Foods Clerk: Not Required per policy Accompanied by: Self / Same As Patient Allergies metoprolol Adverse Reaction (Severe, Verified 02/17/25 15:59) Migraine ezetimibe (From Zetia) Adverse Reaction (Mild, Verified 02/17/25 15:59) abd pain Medication List - Last Reconciled 02/17/25 by Natalie Merino PA-C albuterol sulfate 90 mcg/actuation (Ventolin HFA) 2 puffs inhalation Q6H PRN aspirin 81 mg PO DAILY diclofenac sodium 75 mg PO BID evolocumab (Repatha SureClick) 140 mg subcut Q2W ondansetron 8 mg PO DAILY PRN 30 days rizatriptan take 1 tab at onset of headache; if no relief may repeat 1 tab after at least 4 hrs; max = 2 tabs/24 hr PO 30 days rosuvastatin 20 mg PO DAILY topiramate 50 mg orally 1 tablet in the morning and 2 tablets at bedtime; Tobacco use date assessed: 02/17/25 Dental Screening Dental Screen Date: 01/02/25 HPI [facility] 03/20/25 HPI Details 54 year old male with past medical histo ry of hypercholesterolemia, migraine, CAD, BPH last seen 12/2024 coming in for pre op. Patient is scheduled to have right cataract surgery with [facility] 03/20/[address] Arango. CAD: CAD with drug-eluting stent to circumflex artery and is asymptomatic at this time. LDL well optimized and continued on ASA lifelong Patient has no history of CT, CVA, CHF and DM. He does have a history of stent placement and CAD. Patient has had surgery and anesthesia in the past without complication. [facility] Medical History Cervical spondylosis with radiculopathy Tension headache Tubular adenoma of colon Crescendo angina Frozen shoulder Hyperlipidemia CAD (coronary artery disease) Pseudoaneurysm Cervical spinal stenosis Hypercholesterolemia Schatzki's ring Cyst of left kidney Adhesive capsulitis of left shoulder Migraine Surgical History H/O colonoscopy Stented coronary artery S/P cardiac cath S/P shoulder surgery Family History Father Heart disease Renal cell cancer Prostate cancer Migraine Mother Hypertension Migraine Maternal Aunt Breast cancer Maternal Uncle Prostate cancer Heart disease Maternal Uncle Heart disease Brother Alcohol abuse Mental health disorder Social History Housing: House Alcohol intake: current Alcohol intake frequency: holidays/special occasions only Alcohol type: beer Comment: 2 days weekend 2-3 beers Patient Tobacco Use Status: Never used Tobacco Tobacco use type: Cigarette e-Cigarette/Vaping Use: Never Used Second Hand Smoke Exposure: No service: No Current occupational status: employed 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 How many drinks containing alcohol do you have on a typical day when you are drinking?: 1 or 2 3. How often do you have six or more drinks on one occasion?: Never Total Score: 0 CHANDRA-7 AMB Questionnaire CHANDRA-7 Date CHANDRA - 7 assessed: 04/20/24 Source: Developed by Drs. Jacek Starkey, Sanna Caro, Efrain Bradley and colleagues, with an educational brayden from [employer]. Review of Systems Const Denies body aches, Denies fatigue, Denies fever(s), Denies frequent falls, Denies headache(s) and Denies weakness Eyes Reports no additional complaints and Denies change in vision ENT Denies dizziness, Denies facial pain, Denies headache(s) and Denies nasal congestion Card Denies chest pain, Denies syncope, Denies irregular heart rhythm, Denies leg edema, Denies lightheadedness and Denies dyspnea Resp Denies cough and Denies dyspnea GI Denies abdominal pain, Denies dyspepsia, Denies nausea and Denies vomiting Denies dysuria and Denies urinary urgency Musc Denies back pain and Denies myalgias Skin/Breast Reports system reviewed and no additional complaints, except as documented Neuro Denies dizziness, Denies syncope, Denies frequent falls, Denies headache(s) and Denies weakness Psych Reports no additional complaints Endo Denies fatigue Physical exam (Primary Care) Vital Signs: Last Vital Signs Temp 97.3 F 02/17/25 15:37 Pulse 74 02/17/25 15:37 BP 110/72 02/17/25 15:37 Pulse Ox 97 02/17/25 15:37 Oxygen Delivery Method Room Air 02/17/25 15:37 BMI result Body Mass Index 25.5 Tobacco/Smoking Status: Tobacco use Status Tobacco use date assessed 02/17/25 02/17/25 15:43 Patient Tobacco Use Status Never used Tobacco 02/17/25 15:43 Tobacco use type Cigarette 02/17/25 15:43 e-Cigarette/Vaping Use Never Used 02/17/25 15:43 Thrive Assessment: Date of Thrive Assessment Date Thrive assessed 04/20/24 02/17/25 15:43 Const General: cooperative, healthy appearing, comfortable and no acute distress Orientation/consciousness: patient oriented x3 HENMT Head: Yes normocephalic Ears: hearing grossly normal bilaterally General nose exam: Normal external nose present Eyes General: appearance normal, both eyes and all related structures Conjunctivae: conjunctivae normal Neck Neck: Yes full ROM and Yes no lymphadenopathy Resp Effort & Inspection: normal respiratory effort Auscultation: clear to auscultation bilaterally, no crackles, no rales, no rhonchi and no wheezes Cardio Rate: regular rate Rhythm: regular rhythm Skin General skin exam: no rashes or lesions noted Neuro General: patient oriented x3 Gait exam (Neuro): Normal gait present Extrem General: Yes normal to inspection, Yes full ROM and No edema Psych Affect: normal affect Attitude: cooperative Insight: Good insight present (Psych) Judgement: Good judgement present (Psych) Coding Level of Care Code Est Pt Level 3 (06130) Diagnoses Pre-op exam Z01.818 Assessment & Plan Assessment & Plan (1) Pre-op exam: Code(s): Z01.818 - Encounter for other preprocedural examination Category: Medical Plan: Regarding preop clearance, the patient is at moderate risk for proposed surgery due to age and comorbidities however his LDL, blood pressure and blood sugars are well managed at this time. Reviewed with the patient that no surgery is completely free of risk and that this examination is to assist the surgeon in reviewing informed consent. As modern cataract surgeries rarely cause any bleeding, he is advised that he should continue on his low dose Aspirin 81 mg QD but is advised that I will leave it up to the discretion of the pressing machine tender performing the procedure if he is comfortable with patient being on Clopidogrel or not for his eye surgery EKG has been ordered and addendum will be added to note once this has been reviewed provided clearance for the surgery. Plan This note was constructed using voice recognition software. While every effort has been made to ensure accuracy and maintenance carpenter, still areas may have been included sometimes these areas may affect the content or meeting of the given symptoms. Total time spent caring for the patient today was 20 minutes. This includes time spent before the visit reviewing the chart, time spent during the visit, and time spent after the visit and documentation. Orders: Orders ECG 12 lead EKG Today I25.10 - Atherosclerotic heart disease of [place] coronary artery without angina pectoris, I49.3 - Ventricular premature depolarization, Z01.818 - Encounter for other preprocedural examination Medications: Refilled rosuvastatin 20 mg PO DAILY 90 tabs 3RF
[2025-02-17 15:37] VITALS: BP 110/72; PULSE 74; TEMP 36.3; O2SAT 97; BMI 25.5
--- OUTSIDE RECORDS SUMMARY | 2025-02-17 20:15 | XMS_ITS | Patient Health Record ---
Author Organization [facility] Address [address] [place] [address] Care Team Providers Care [employer] Registrar Name Role Phone Po Lary GERARDO Primary Care Provider Arun Licona Jr Unavailable Allergies Allergen (clinical drug ingredient) Drug/Non Drug Allergy documented on EMR Reaction Allergy Type Onset Date Status seasonal/ numerous allergies to enviroment (uncoded) Unknown Allergy Active metoprolol Metoprolol migraine Drug Allergy Activ e Reason For Referral No Information Medications Medication SIG (Take, Route, Frequency, Duration) Notes Start Date End Date Status Aspirin 81 Active Diclofenac Not-Takin g/PRN Ondansetron Not-Taki ng/PRN Cyclobenzaprine HCl Not-Taking/PRN Rosuvastatin Calcium 20 MG Tablet 1 tablet Orally Once a day Active Topiramate 50 MG Tablet 1 tablet Orally Once a day; Duration: 30 day(s) Active Repatha SureClick 140 MG/ML Solution Auto-injector INJECT 140 MG SUBCUTANEOUSLY EVERY 2 WEEKS Subcutaneous; Duration: 84 Active Rizatriptan Benzoate Not-Taking/PRN Social History Tobacco Use: Social History Observation Description Date Details (start date - stop date) Never Smoker NA - NA Social History Drugs/Alcohol: Social Info Question Answer Notes Alcohol Screen Did you have a drink containing alcohol in the past year? Yes How often did you have a drink containing alcohol in the past year? Never (0 point) How many drinks did you have on a typical day when you were drinking in the past year? 1 or 2 drinks (0 point) How often did you have 6 or more drinks on one occasion in the past year? 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 Problems Problem Type SNOMED Code ICD Code Onset Dates Problem Status W/U Status Risk Notes Problem Colon cancer screening (484925085) Colon cancer screening (Z12.11) Active confirmed Problem Pre-procedure evaluation check (040395536) Encounter for other preprocedural examination (Z01.818) Active confirmed Problem Long-term current use of antiplatelet drug (926385761910858 ) Long-term use of aspirin therapy (Z79.82) Active confirmed Encounters Encounter Location Date Provider Diagnosis [facility] [place] [address] [place] [id number] 03/15/2024 Arun Persaud Jr Colon cancer screening Z12.11 Assessments Encounter Date Diagnosis (ICD Code) Assessment Notes Treatment Notes Treatment Clinical Notes Section Notes 03/15/2024 Colon cancer screening (ICD-10 - Z12.11) Plan Of Treatment Future Test Test Name Order Date COLONOSCOPY 12/02/2018 COLONOSCOPY 01/14/2024 Insurance Providers Payer Name Payer Address Payer Phone Subscriber Number Group Number Insured Name Patient Relationship to Insured Coverage Start Date Coverage End Date [facility] [address] [place], [place] [id number] JAY THRASHER Self - patient is the insured Medical (General) History Medical History History ICD Code Hyperlipidemia migraine headaches Coronary artery disease with stent place ment 05/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
== END 2025-02-17 16:51 | disposition home or self-care (01) ==
LOC: HO.HMCH 15:22
PROVIDERS: PCP Internal Medicine
DX: Z01.818 Encounter for other preprocedural examination (principal)

== ENCOUNTER → 2025-02-22 08:22 | Outpatient (REF) | payer BC, SELFPAY ==
--- OUTSIDE RECORDS SUMMARY | 2024-02-16 04:10 | XMS_ITS ---
Author Organization [facility] Address [address] [place] [phone] Care Team Providers Care Outside Sales Executive Name Role Phone Lary Lee MD Primary Care Provider Arun Licona Jr REASON FOR VISIT screening Encounters Encounter Location Date Provider Diagnosis [facility] Outpatient [address] [place], [place] [phone] 02/16/2024 Arun Persaud Jr Plan Of Treatment No Information Progress Notes * JAY KEYDOB:1970 (54 yo M)Acc No.[id number]:02/16/2024 COLON WITH MAC Patient: JAY DON Provider: Della Persaud MD :1970 A ge:53 Y S ex:Male Date:02/16/2024 Address:[address] [place], [place] [id number] Pcp:Lary Lee MD Subjective: * Chief Complaints: * S creening * The named appointment provid er may or may not be the originator of this progress note, and it is not deemed complete until electronically signed by the appointment provider. Sign off status: Pending * Provider: Della Persaud MD Date: 1 04/18/2023 Generated for Jeffrey jurado/Alejandra/eTpolinasmitting on: 04/25/2024 08:33 AM EST
--- OUTSIDE RECORDS SUMMARY | 2024-03-15 06:50 | XMS_ITS ---
Author Organization [facility] Address [address] [place] [phone] Care Team Providers Care Planogrammer Name Role Phone Lary Lee MD Primary Care Provider Arun Licona Jr Unavailable [phone] REASON FOR VISIT SCREENING Encounters Encounter Location Date Provider Diagnosis [facility] [place] [address] [place] [phone] 03/15/2024 Arun Persaud Jr Colon cancer screening Z12.11 Assessments Encounter Date Diagnosis (ICD Code) Assessment Notes Treatment Notes Treatment Clinical Notes Section Notes 03/15/2024 Colon cancer screening (ICD-10 - Z12.11) Plan Of Treatment No Information Progress Notes * JAY KEYDOB:1970 (54 yo M)Acc No.[id number]:03/15/2024 COLON WITH MAC Patient: JAY DON Provider: Della Persaud MD :1970 A ge:53 Y S ex:Male Date:03/15/2024 Address: [facility] Pcp:Lary Lee MD Subjective: * Chief Complaints: * S CREENING Assessment: * Assessment: 1. C olon cancer screening - Z12.11 (Primary) Plan: * Procedure Codes: 4 5378 DIAGNOSTIC [id number] INTRVL 3+YRS PTS CLNSCP [id number] RCMND FLW-UP 10 YRS DOCD Billing Information: * Procedure Codes: 02471 DIAGNOSTIC COLONOSCOPY. 0529F INTRVL 3+YRS PTS CLNSCP DOCD. 0528F RCMND FLW-UP 10 YRS DOCD. * The named appointment provid er may or may not be the originator of this progress note, and it is not deemed complete until electronically signed by the appointment provider. Sign off status: Pending * Provider: Della Persaud MD Date: 0 03/15/2024 Generated for Jeffrey jurado/Alejandra/Armida on: 1 04/25/2024 08:33 AM EST
--- NOTE | 2025-02-22 08:25 | ECG_ITS ---
Test Reason : ASHD Blood Pressure : */* mmHG Vent. Rate : 59 BPM Atrial Rate : 59 BPM P-R Int : 148 ms QRS Dur : 96 ms QT Int : 392 ms P-R-T Axes : 51 -31 -15 degrees QTcB Int : 388 ms Sinus bradycardia Left axis deviation Abnormal ECG When compared with ECG of 05-May-2022 18:21, No significant change was found Referred By: Natalie Merino Electronically Signed By: Nazario Sheppard
--- OUTSIDE RECORDS SUMMARY | 2025-02-22 08:34 | XMS_ITS | Patient Health Record ---
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 Problems Problem Type SNOMED Code ICD Code Onset Dates Problem Status W/U Status Risk Notes Problem Colon cancer screening (885030267) Colon cancer screening (Z12.11) Active confirmed Problem Pre-procedure evaluation check (639590194) Encounter for other preprocedural examination (Z01.818) Active confirmed Problem Long-term current use of antiplatelet drug (761247360638126 ) Long-term use of aspirin therapy (Z79.82) Active confirmed Encounters Encounter Location Date Provider Diagnosis [facility] [place] [address] [place] [id number] 03/15/2024 Arun Persaud Jr Colon cancer screening [...] Insured Coverage Start Date Coverage End Date [facility] [address] [place], [place] [id number] JAY THRASHER Self - patient is the insured Medical (General) History Medical History History ICD Code Hyperlipidemia migraine headaches Coronary artery disease with stent place ment 05/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
== END ==
LOC: HO.CARD 08:22
PROVIDERS: PCP Internal Medicine
DX: Z01.818 Encounter for other preprocedural examination (principal); I25.10 Atherosclerotic heart disease of native coronary artery without angina pectoris; I49.3 Ventricular premature depolarization
CPT/HCPCS: 93005

== ENCOUNTER → 2025-02-22 08:25 | Outpatient (BNV) | payer BC, SELFPAY | PROVIDERS: PCP Internal Medicine; Visit Provider Internal Medicine Cardiovascular Disease | DX: R00.1 Bradycardia, unspecified (principal) | CPT/HCPCS: 93010 ==

== ENCOUNTER 2025-03-08 09:14 | Outpatient (REF) | payer BC, SELFPAY ==
--- OUTSIDE RECORDS SUMMARY | 2024-02-16 04:10 | XMS_ITS ---
Author Organization [facility] Address [address] [place] [phone] Care Team Providers Care Make Up Worker Name Role Phone Lary Lee MD Primary Care Provider Arun Licona Jr REASON FOR VISIT screening Encounters Encounter Location Date Provider Diagnosis [facility] Out[place] [address] [place] [id number] 02/16/2024 Arun Persaud Jr Plan Of Treatment No Information Progress Notes * JAY KEYDOB:1970 (54 yo M)Acc No.[id number]:02/16/2024 COLON WITH MAC Patient: JAY DON Provider: Della Persaud MD :1970 A ge:53 Y S ex:Male Date:02/16/2024 Address:[address] [place], [place] [address] Pcp:Lary Lee MD Subjective: * Chief Complaints: * S creening * The named appointment provid er may or may not be the originator of this progress note, and it is not deemed complete until electronically signed by the appointment provider. Sign off status: Pending * Provider: Della Persaud MD Date: 04/18/2023 Generated for Jeffrey jurado/Alejandra/Celiaitting on: 09:26 AM EST
--- OUTSIDE RECORDS SUMMARY | 2024-03-15 06:50 | XMS_ITS ---
Author Organization [facility] Address [address] [place] [phone] Care Team Providers Care Tower Technician Name Role Phone Lary Lee MD Primary Care Provider Arun Licona Jr Unavailable [phone] REASON FOR VISIT SCREENING Encounters Encounter Location Date Provider Diagnosis [facility] [address] [place] [phone] 03/15/2024 Arun Persaud Jr Colon cancer screening Z12.11 Assessments Encounter Date Diagnosis (ICD Code) Assessment Notes Treatment Notes Treatment Clinical Notes Section Notes 03/15/2024 Colon cancer screening (ICD-10 - Z12.11) Plan Of Treatment No Information Progress Notes * JAY KEYDOB:1970 (54 yo M)Acc No.[id number]:03/15/2024 COLON WITH MAC Patient: JAY DON Provider: Della Persaud MD :1970 A ge:53 Y S ex:Male Date:03/15/2024 Address: [facility] Pcp:Lary Lee MD Subjective: * Chief Complaints: * S CREENING Assessment: * Assessment: 1. C olon cancer screening - Z12.11 (Primary) Plan: * Procedure Codes: 4 5378 DIAGNOSTIC [id number] INTRVL 3+YRS PTS CLNSCP [id number] RCMND FLW-UP 10 YRS DOCD Billing Information: * Procedure Codes: 61478 DIAGNOSTIC COLONOSCOPY. 0529F INTRVL 3+YRS PTS CLNSCP DOCD. 0528F RCMND FLW-UP 10 YRS DOCD. * The named appointment provid er may or may not be the originator of this progress note, and it is not deemed complete until electronically signed by the appointment provider. Sign off status: Pending * Provider: Della Persaud MD Date: 0 03/15/2024 Generated for Jeffrey jurado/Alejandra/Armida on: 1 09:26 AM EST
--- NOTE | ~2025-03-08 | US_ITS ---
EXAMINATION: US ABDOMEN HISTORY: R79.89 - Other specified abnormal findings of blood chemistry TECHNIQUE: Real-time grayscale ultrasound imaging of the abdomen was performed and images were reviewed. COMPARISON: Comparison is made with the prior examination dated 11/03/2019. FINDINGS: Liver: The right lobe of the liver measures 14.6 cm in size. The left lobe of the liver measures 7.9 cm in size. The liver demonstrates mildly coarsened echotexture. No focal mass or intrahepatic biliary ductal dilatation is identified. There is normal hepatopedal flow in the portal vein. Gallbladder and biliary tree: The gallbladder is unremarkable, without evidence of calculi, wall thickening, or pericholecystic fluid. There is no sonographic Santana sign. The common bile duct is normal in caliber measuring 4 mm in diameter. Kidneys: The right kidney measures 11.2 cm in length and is unremarkable. The left kidney measures 11.4 cm in length and demonstrates a 2.0 x 1.5 x 3.6 cm cyst in the interpolar region. There is mild hydronephrosis. Pancreas: The pancreatic head, neck, and body are unremarkable. The pancreatic tail is obscured by bowel gas. Spleen: The spleen is normal in size and contour, measuring 12.0 cm in length. Abdominal aorta and inferior vena cava: The visualized portions of the abdominal aorta and inferior vena cava are normal in caliber. There is no free fluid in the abdomen. US/US abdomen complete IMPRESSION: 1. Mildly coarsened hepatic echotexture which is a nonspecific finding. 2. Mild left hydronephrosis. Further evaluation with CT urography should be considered. Electronically signed by: Jacek Chris MD 03/08/2025 11:14 AM EST
--- OUTSIDE RECORDS SUMMARY | 2025-03-08 09:27 | XMS_ITS | Patient Health Record ---
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 Problems Problem Type SNOMED Code ICD Code Onset Dates Problem Status W/U Status Risk Notes Problem Colon cancer screening (921782302) Colon cancer screening (Z12.11) Active confirmed Problem Pre-procedure evaluation check (653579372) Encounter for other preprocedural examination (Z01.818) Active confirmed Problem Long-term current use of antiplatelet drug (380266268427581 ) Long-term use of aspirin therapy (Z79.82) Active confirmed Encounters Encounter Location Date Provider Diagnosis [facility] [place] [address] [place] [id number] 03/15/2024 Arun Persaud Jr Colon cancer screening [...] Insured Coverage Start Date Coverage End Date [facility] [address] [place], [place] [id number] JAY THRASHER Self - patient is the insured Medical (General) History Medical History History ICD Code Hyperlipidemia migraine headaches Coronary artery disease with stent place ment 05/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
== END 2025-03-08 09:15 | disposition home or self-care (01) ==
LOC: HO.US 09:14
PROVIDERS: PCP Internal Medicine; Visit Provider Internal Medicine
DX: R79.89 Other specified abnormal findings of blood chemistry (principal)
CPT/HCPCS: 76700

== ENCOUNTER → 2025-03-08 09:15 | Outpatient (BNV) | payer BC, SELFPAY | PROVIDERS: PCP Internal Medicine; Visit Provider Radiology Diagnostic Radiology | DX: N13.30 Unspecified hydronephrosis (principal) | CPT/HCPCS: 76700 ==